=== PATIENT | female | born 1950 | race Caucasian/White ===

== ENCOUNTER → 2017-12-26 16:02 | Outpatient (CLI) | payer MEDICARE, OTHER, SELFPAY ==
[2017-12-26 17:01] LABS: Absolute Lymphocyte Count 2.57 X10^3/ul (0.83-4.51); Absolute Neutrophil Count 4.4 X10^3/uL (2.0-7.7); Basophil# 0.02 X10^3/uL; Basophil% 0.3 % (0-1); Eosinophil# 0.18 X10^3/uL; Eosinophils% 2.3 % (0-5); Hematocrit 40.5 % (37-47); Hemoglobin 13.6 g/dl (12.0-15.0); Lymphocyte # 2.57 X10^3/ul (4.0); Lymphocyte % 32.3 % (19-41); Mean Corp Hgb Conc 33.6 g/gl (32-36); Mean Corpuscular Hgb 31.9 pg (27.0-32.0); Mean Corpuscular Volume 95.1 fL (81-99); Mean Platelet Vol. 10.9 fl (6.2-12.0); Monocyte# 0.71 X10^3/uL; Monocyte% 8.9 % (0-10); Neutrophil # 4.44 X10^3/uL (2.7-7.7); Neutrophil % 55.8 % (47-70); Platelet Count 200 K/mm3 (150-450); RBC Distribution Width CV 12.6 % (11.6-14.6); RBC Distribution Width SD 42.8 fl (35.1-43.9); Red Blood Count 4.26 M/mm3 (4.2-5.4)
[2017-12-26 17:10] LABS: POSITIVE COUNT NO; POSITIVE DIFFERENTIAL NO; POSITIVE MORPHOLOGY NO
[2017-12-26 17:55] LABS: AST(SGOT) 17 U/L (15-37); Alanine Aminotransfer ALT/SGPT 17 U/L (13-56); Albumin, Serum 3.8 g/dL (3.2-5.0); Alkaline Phosphatase 82 U/L (45-117); Anion Gap 6 (5-15); BUN 13 mg/dL (7-18); BUN/Creat Ratio 20.7 RATIO (10-20); Calcium,Total 8.9 mg/dL (8.5-10.1); Chloride 103 mmol/L (98-107); Creatinine, Serum 0.63 mg/dL (0.55-1.02); EST Glomerular Filtration Rate 101 mL/min (>60); Est Glom Filt Rate - Afr Amer 122 mL/min (>60); Globulin 3.7 g/dL (2.2-4.2); Glucose 99 mg/dL (74-106); Potassium 3.7 mmol/L (3.5-5.1); Protein, Total 7.5 g/dL (6.4-8.2); Sodium Level 137 mmol/L (136-145); T4 Total, Thyroxin 9.2 ug/dL (4.8-13.9); Thyroid Stim Hormone (TSH) 0.05 uIU/mL (0.358-3.74)
== END ==
PROVIDERS: Visit Provider Physician Assistant Medical
DX: R53.83 Other fatigue (principal); I43 Cardiomyopathy in diseases classified elsewhere
CPT/HCPCS: 36415; 80053; 84436; 84443; 85025

== ENCOUNTER → 2018-01-15 11:13 | Outpatient (CLI) | payer MEDICARE, OTHER, SELFPAY ==
[2018-01-15 12:49] LABS: Free T3 3.4 pg/mL (2.18-3.98); T4 Free Direct 0.95 ng/dL (0.76-1.46); Thyroid Stim Hormone (TSH) 0.05 uIU/mL (0.358-3.74)
== END ==
PROVIDERS: Visit Provider Nurse Practitioner
DX: E07.9 Disorder of thyroid, unspecified (principal); I43 Cardiomyopathy in diseases classified elsewhere
CPT/HCPCS: 36415; 84439; 84443; 84481

== ENCOUNTER → 2018-02-19 11:20 | Outpatient (CLI) | payer MEDICARE, OTHER, SELFPAY ==
[2018-02-19 12:35] LABS: T4 Free Direct 0.79 ng/dL (0.76-1.46); Thyroid Stim Hormone (TSH) 0.07 uIU/mL (0.358-3.74)
== END ==
PROVIDERS: Visit Provider Nurse Practitioner
DX: E07.9 Disorder of thyroid, unspecified (principal)
CPT/HCPCS: 36415; 84439; 84443; 84481

== ENCOUNTER → 2018-03-07 15:47 | Outpatient (CLI) | payer MEDICARE, OTHER, SELFPAY ==
[2018-03-07 15:55] LABS: Bacteria 0 SEEN /hpf (None Seen); Mucous, Urine 0 SEEN /hpf (<or=2+); Red Blood Cells-Urine 0 SEEN /hpf (0-5)
[2018-03-07 17:48] LABS: Absolute Lymphocyte Count 2.68 X10^3/ul (0.83-4.51); Absolute Neutrophil Count 3.5 X10^3/uL (2.0-7.7); Basophil# 0.01 X10^3/uL; Basophil% 0.1 % (0-1); Eosinophil# 0.21 X10^3/uL; Hematocrit 41.8 % (37-47); Hemoglobin 13.6 g/dl (12.0-15.0); Lymphocyte # 2.68 X10^3/ul (4.0); Lymphocyte % 38.1 % (19-41); Mean Corp Hgb Conc 32.5 g/gl (32-36); Mean Corpuscular Hgb 31.3 pg (27.0-32.0); Mean Corpuscular Volume 96.1 fL (81-99); Mean Platelet Vol. 10.9 fl (6.2-12.0); Monocyte# 0.59 X10^3/uL; Monocyte% 8.4 % (0-10); Neutrophil # 3.52 X10^3/uL (2.7-7.7); Neutrophil % 50.1 % (47-70); Platelet Count 227 K/mm3 (150-450); RBC Distribution Width CV 12.8 % (11.6-14.6); Red Blood Count 4.35 M/mm3 (4.2-5.4)
[2018-03-07 17:56] LABS: POSITIVE COUNT NO; POSITIVE DIFFERENTIAL NO; POSITIVE MORPHOLOGY NO
[2018-03-07 17:57] LABS: Color, Urine Yellow (Yellow); Urine Clarity Clear (Clear)
[2018-03-07 17:58] LABS: Glucose, Dipstick NEGATIVE (Normal); Ketone-Dipstick Negative (Negative); Protein-Dipstick Negative (Negative); Urine Bilirubin Dipstick Negative (Negative)
[2018-03-07 17:59] LABS: Leukocyte Esterase-Dipstick Negative /ul (Negative); Nitrite-Dipstick Negative (Negative); Occult Blood-Urine Negative /ul (Negative); Urine Urobilinogen Normal (Normal)
[2018-03-07 18:01] LABS: Hyaline Cast 0-5 SEEN /lpf (0-5); Squamous Epithelial Cells - UA 0-5 SEEN /hpf (5-10); White Blood Cells 0-5 SEEN /hpf (0-5)
[2018-03-07 18:18] LABS: ALB/GLOB Ratio 1.1 RATIO (0.9-2.4); AST(SGOT) 17 U/L (15-37); Alanine Aminotransfer ALT/SGPT 19 U/L (13-56); Albumin, Serum 3.9 g/dL (3.2-5.0); Alkaline Phosphatase 83 U/L (45-117); Anion Gap 7 (5-15); BUN 10 mg/dL (7-18); BUN/Creat Ratio 15.9 RATIO (10-20); Chloride 106 mmol/L (98-107); Cholesterol 227 mg/dL (200); Creatinine, Serum 0.63 mg/dL (0.55-1.02); EST Glomerular Filtration Rate 100 mL/min (>60); Est Glom Filt Rate - Afr Amer 121 mL/min (>60); Globulin 3.6 g/dL (2.2-4.2); Glucose 83 mg/dL (74-106); High Density Lipoprotein 48 mg/dL; Magnesium 2.2 mg/dL (1.6-2.6); Potassium 3.7 mmol/L (3.5-5.1); Protein, Total 7.5 g/dL (6.4-8.2); Sodium Level 140 mmol/L (136-145); T4 Free Direct 0.98 ng/dL (0.76-1.46); Thyroid Stim Hormone (TSH) 0.07 uIU/mL (0.358-3.74); Triglycerides 332 mg/dL; Very Low Density Lipoprotein 66 mg/dL (5-40)
[2018-03-11 20:06] LABS: Thyroid Stim Immunoglob <0.10 IU/L (0.00-0.55)
[2018-03-12 10:53] LABS: Anti-Thyroglobulin AB < 1.0 IU/mL (0.0-0.9); Thyroid Peroxidase AB 16 IU/mL (0-34)
== END ==
PROVIDERS: Family Provider Family Medicine; PCP Family Medicine; Visit Provider Family Medicine
DX: R94.6 Abnormal results of thyroid function studies (principal); R73.9 Hyperglycemia, unspecified; I50.20 Unspecified systolic (congestive) heart failure; Z72.0 Tobacco use
CPT/HCPCS: 36415; 80053; 80061; 81001; 83036; 83735; 84432; 84439; 84443; 84445; 85025; 86376; 86800

== ENCOUNTER → 2018-03-19 07:40 | Outpatient (CLI) | payer MEDICARE, OTHER, SELFPAY ==
--- NOTE | 2018-03-19 07:42 | CT_ITS ---
STUDY: CT MAXILLOFACIAL SINUSES REASON FOR EXAM: Female, 67 years old. Evaluate for sinusitis RADIATION DOSAGE (If Supplied By Facility): CTDIvol = ( 33.06 ) mGy, DLP = ( 788.40 ) mGycm TECHNIQUE: The patient was scanned in a multi detector CT scanner. High resolution axial imaging was performed without the administration of intravenous contrast material. Sagittal and coronal images were reconstructed. Individualized dose optimization techniques were used for this CT. COMPARISON: None. FINDINGS: FRONTAL SINUSES: Normal aeration, without mucosal inflammatory disease. ETHMOIDAL SINUSES: Trace scattered circumferential sinus mucosal thickening in the bilateral ethmoid paranasal sinuses. MAXILLARY SINUSES: A small amount of trace sinus mucosal thickening involving the inferior aspect of both maxillary sinuses. SPHENOIDAL SINUSES: Mild bilateral sphenoid paranasal sinus disease. More bubbly appearance noted on the left suggesting acute on chronic sinusitis. There is patency of the bilateral maxillary infundibuli with normal uncinate processes, ethmoid bullae, and hiatus semilunaris. Normal bilateral middle turbinates. Normal bilateral inferior turbinates. There is a right sided nasal septal deviation with a right sided nasal septal spur. There is patency of the bilateral nasal airways. The visualized osseous structures are normal. The visualized bilateral orbital contents are normal. CT/Sinus/Facial Bone IMPRESSION: 1. Mild sinus mucosal disease as detailed above 2. Prominent rightward nasal septal deviation with rightward spur Electronically Signed: Abraham Jay DO at 8:14 EDT Tel , Service support ,
== END ==
PROVIDERS: Family Provider Family Medicine; PCP Family Medicine; Visit Provider Otolaryngology
DX: J32.9 Chronic sinusitis, unspecified (principal)
CPT/HCPCS: 70486

== ENCOUNTER → 2018-03-26 08:31 | Outpatient (CLI) | payer MEDICARE, OTHER, SELFPAY ==
--- NOTE | 2018-03-26 08:33 | US_ITS ---
STUDY: THYROID ULTRASOUND REASON FOR EXAM: Female, 67 years old. Low TSH TECHNIQUE: Ultrasound evaluation of the thyroid was performed with real-time and static cantu-scale imaging. COMPARISON: None. FINDINGS: RIGHT LOBE: The right lobe of the thyroid gland measures 4.8 x 2.1 x 2.5 cm. There is a heterogeneous echotexture. There are multiple nodules within the right thyroid. In the upper pole there is a 2.0 x 1.5 x 1.8 cm solid-appearing mass which appears encapsulated with internal vascularity cystic and solid components. There is a cystic mass in the right thyroid measuring 0.9 x 0.8 cm. There is a mass measuring 1.0 x 0.6 cm. There are scattered cystic nodules. LEFT LOBE: The left lobe of the thyroid gland measures 4.7 x 1.9 x 1.9 cm. There is a heterogeneous echotexture. There are multiple nodules in the left thyroid. There are 2 closely related or lobulated masses in the left thyroid measuring approximately 1.9 x 1.7 x 1.3 cm. There is increased vascularity. There is a cystic mass present measuring 0.6 x 0.4 cm. Overall there are numerous bilateral thyroid nodules there is increased vascularity throughout. ISTHMUS: The isthmus measures 4 mm . The regional lymph nodes are normal. US/Thyroid IMPRESSION: Enlarged bilateral thyroid. There is increased vascularity and multiple nodules. There are bilateral solid-appearing nodules in the upper poles with vascularity index echogenicity and focal calcification. Recommend correlation with clinical history. Findings are highly suspicious for multinodular goiter. Comparison to prior study would be helpful. Otherwise recommend consideration for biopsy. Electronically Signed: Geri Berg MD at 14:56 EDT Tel , Service support ,
== END ==
PROVIDERS: Family Provider Family Medicine; PCP Family Medicine; Visit Provider Family Medicine
DX: R94.6 Abnormal results of thyroid function studies (principal)
CPT/HCPCS: 76536

== ENCOUNTER → 2018-05-22 16:30 | Outpatient (CLI) | payer MEDICARE, OTHER, SELFPAY ==
--- NOTE | 2018-05-22 14:50 | ASPS_PTH ---
PATIENT: ALAN STACY [facility] U#:[id number] AGE/SX: 75/F ROOM: RE05/22/[address]: Dr. Gigi Mistry MD : 1950 BED: DIS: SPEC #: [id number] RECD: 05/22/18 16:02 STATUS: FREDDIE EMMY #: [id number] TEQUILA: 05/22/18 14:[address]: Gigi Mistry DEPT: CYTOLOGY RECD BY: Edmar Mejia ENTERED: 05/24/18 07:56 SP TYPE: ASPIRATION OTHR DR: Dr. Abraham Bahena MD Tissues: A - Thyroid gland, NOS B - Thyroid gland, NOS Procedures: Pap Stain (control) Special Stain Group II Cytology Other HEADER OPERATION: Bilateral thyroid FNA PRE-OP DIAGNOSIS: Bilateral thyroid nodules TISSUE SUBMITTED: A ? Right thyroid (mid superior) 6 slides, B ? Left thyroid (mid) 6 slides DIAGNOSIS CYTOLOGY A. Fine needle aspiration, right thyroid nodule (smears): Adequate for evaluation. Negative, consistent with colloid nodule. B. Fine needle aspiration, left thyroid nodule (smears): Adequate for evaluation. Negative, consistent with colloid nodule. AM:brielle 05/25/18 CYTOLOGY STUDY Slides are reviewed. CYTOLOGY GROSS A - Received are six smears labeled with the patient's name and designated per the requisition as right thyroid mid superior. Submitted for staining. B - Received are six smears labeled with the patient's name and designated per the requisition as left thyroid mid. Submitted for staining. 05/24/18 TC:5 CPT: 24858 x2
== END ==
PROVIDERS: Family Provider Family Medicine; PCP Family Medicine; Visit Provider Surgery
DX: E04.1 Nontoxic single thyroid nodule (principal)
CPT/HCPCS: 88161; 88313

== ENCOUNTER → 2018-07-02 15:00 | Outpatient (CLI) | payer MEDICARE, OTHER, SELFPAY ==
--- NOTE | 2018-07-02 15:00 | MASS_PTH ---
PATIENT: ALAN STACY LOC: [facility] U#:[id number] AGE/SX: 75/F ROOM: RE07/02/[address]: Dr. Gigi Mistry MD : 1950 BED: DIS: SPEC #: [id number] RECD: 07/03/18 10:46 STATUS: FREDDIE EMMY #: [id number] TEQUILA: 07/02/18 15:[address]: Gigi Mistry DEPT: SURGICAL PATHOLOGY RECD BY: Vipin Greco ENTERED: 07/03/18 11:59 SP TYPE: Mass OTHR DR: Dr. Abraham Bahena MD Tissues: Right arm (tissue only) Procedures: Surgery Specimen Level III HEADER OPERATION: Excision right arm mass PRE-OP DIAGNOSIS: Right arm mass TISSUE SUBMITTED: Right arm tissue MICROSCOPIC DIAGNOSIS Right arm mass, excision: Mature adipose tissue, consistent with lipoma. Overlying skin, no pathologic diagnosis. SJ:brielle 07/04/18 MICROSCOPIC DESCRIPTION Slides are reviewed. GROSS DESCRIPTION Received in fixative is one container labeled with the patient's name and designated right arm. The specimen consists of an irregular piece of adipose tissue measuring 7 x 6 x 3 cm. A piece of skin is noted at one surface measuring 5.5 x 0.7 cm. The skin surface shows a healed scar. The external surface is inked. Sections reveal yellow adipose cut surfaces without areas of hemorrhage, necrosis or cystic degeneration. Rectification Printer sections are submitted in four cassettes. Cassette 1 also contains the section of the skin. / NNAMDI:brielle 07/03/18 TC:1 CPT: 17209
== END ==
PROVIDERS: Family Provider Family Medicine; PCP Family Medicine; Visit Provider Surgery
DX: L98.8 Other specified disorders of the skin and subcutaneous tissue (principal)
CPT/HCPCS: 88304; 88305

== ENCOUNTER → 2018-07-16 08:29 | Outpatient (CLI) | payer MEDICARE, OTHER, SELFPAY | PROVIDERS: Family Provider Family Medicine; PCP Family Medicine; Visit Provider Internal Medicine Cardiovascular Disease | DX: I45.6 Pre-excitation syndrome (principal); I43 Cardiomyopathy in diseases classified elsewhere; R00.2 Palpitations; E07.9 Disorder of thyroid, unspecified; I49.9 Cardiac arrhythmia, unspecified; Z95.810 Presence of automatic (implantable) cardiac defibrillator | CPT/HCPCS: 93306 ==

== ENCOUNTER → 2018-07-26 13:35 | Outpatient (CLI) | payer MEDICARE, OTHER, SELFPAY ==
[2018-07-26 16:19] LABS: Absolute Lymphocyte Count 2.07 X10^3/ul (0.83-4.51); Absolute Neutrophil Count 3.3 X10^3/uL (2.0-7.7); Basophil# 0.01 X10^3/uL; Basophil% 0.2 % (0-1); Eosinophil# 0.18 X10^3/uL; Eosinophils% 2.9 % (0-5); Hematocrit 37.5 % (37-47); Hemoglobin 12.4 g/dl (12.0-15.0); Lymphocyte # 2.07 X10^3/ul (4.0); Lymphocyte % 33.4 % (19-41); Mean Corp Hgb Conc 33.1 g/gl (32-36); Mean Corpuscular Hgb 32.2 pg (27.0-32.0); Mean Corpuscular Volume 97.4 fL (81-99); Mean Platelet Vol. 11.4 fl (6.2-12.0); Monocyte# 0.65 X10^3/uL; Monocyte% 10.5 % (0-10); Neutrophil # 3.27 X10^3/uL (2.7-7.7); Neutrophil % 52.8 % (47-70); POSITIVE COUNT NO; POSITIVE DIFFERENTIAL NO; POSITIVE MORPHOLOGY NO; Platelet Count 185 K/mm3 (150-450); RBC Distribution Width CV 12.8 % (11.6-14.6); RBC Distribution Width SD 44.7 fl (35.1-43.9); Red Blood Count 3.85 M/mm3 (4.2-5.4); White Blood Count 6.2 K/mm3 (4.4-11.0)
[2018-07-26 16:37] LABS: AST(SGOT) 19 U/L (15-37); Alanine Aminotransfer ALT/SGPT 18 U/L (13-56); Albumin, Serum 3.3 g/dL (3.2-5.0); Alkaline Phosphatase 84 U/L (45-117); Anion Gap 10 (5-15); BUN 11 mg/dL (7-18); BUN/Creat Ratio 17.5 RATIO (10-20); Calcium,Total 8.5 mg/dL (8.5-10.1); Chloride 108 mmol/L (98-107); Cholesterol 219 mg/dL (200); Creatinine, Serum 0.63 mg/dL (0.55-1.02); EST Glomerular Filtration Rate 100 mL/min (>60); Est Glom Filt Rate - Afr Amer 121 mL/min (>60); Globulin 3.3 g/dL (2.2-4.2); Glucose 82 mg/dL (74-106); High Density Lipoprotein 42 mg/dL; Potassium 3.5 mmol/L (3.5-5.1); Protein, Total 6.6 g/dL (6.4-8.2); Sodium Level 142 mmol/L (136-145); T4 Free Direct 0.86 ng/dL (0.76-1.46); Thyroid Stim Hormone (TSH) 0.04 uIU/mL (0.358-3.74); Triglycerides 286 mg/dL; Very Low Density Lipoprotein 57 mg/dL (5-40)
== END ==
PROVIDERS: Family Provider Family Medicine; PCP Family Medicine; Visit Provider Family Medicine
DX: E78.5 Hyperlipidemia, unspecified (principal); R79.89 Other specified abnormal findings of blood chemistry
CPT/HCPCS: 36415; 80053; 80061; 84439; 84443; 85025

== ENCOUNTER → 2018-08-01 15:32 | Outpatient (CLI) | payer MEDICARE, OTHER, SELFPAY ==
[2018-08-05 03:06] LABS: Thyroid Stim Immunoglob <0.10 IU/L (0.00-0.55)
[2018-08-05 09:59] LABS: Anti-Thyroglobulin AB < 1.0 IU/mL (0.0-0.9); Thyroglobulin, Serum Qt. 91.8 ng/mL (1.5-38.5); Thyroid Peroxidase AB 13 IU/mL (0-34)
== END ==
PROVIDERS: Family Provider Family Medicine; PCP Family Medicine; Visit Provider Family Medicine
DX: R79.89 Other specified abnormal findings of blood chemistry (principal)
CPT/HCPCS: 36415; 84432; 84445; 86376; 86800

== ENCOUNTER → 2018-08-06 11:22 | Outpatient (CLI) | payer MEDICARE, OTHER, SELFPAY ==
[2018-08-06 12:33] LABS: BNP,B-Type NATRIURETIC PEPTIDE 49.6 pg/mL (0-100)
== END ==
PROVIDERS: Family Provider Family Medicine; PCP Family Medicine; Visit Provider Internal Medicine Cardiovascular Disease
DX: R06.02 Shortness of breath (principal)
CPT/HCPCS: 36415; 83880

== ENCOUNTER → 2018-11-28 13:49 | Outpatient (CLI) | payer MEDICARE, OTHER, SELFPAY ==
[2018-11-28 13:54] LABS: Bacteria 0 SEEN /hpf (None Seen); Mucous, Urine 0 SEEN /hpf (<or=2+); Red Blood Cells-Urine 0 SEEN /hpf (0-5); White Blood Cells 0 SEEN /hpf (0-5)
[2018-11-28 15:50] LABS: Color, Urine Straw (Yellow); Glucose, Dipstick Normal (Normal); Ketone-Dipstick Negative (Negative); Leukocyte Esterase-Dipstick Negative /ul (Negative); Nitrite-Dipstick Negative (Negative); Occult Blood-Urine Negative /ul (Negative); Protein-Dipstick Negative (Negative); Specific Gravity, Urine 1.005 (1.002-1.030); Urine Bilirubin Dipstick Negative (Negative); Urine Clarity Clear (Clear); Urine Urobilinogen Normal (Normal); Urine pH 6.5 (5.0 - 8.0)
[2018-11-28 16:06] LABS: Squamous Epithelial Cells - UA 0-5 SEEN /hpf (5-10)
[2018-11-28 16:36] LABS: ALB/GLOB Ratio 1.3 RATIO (0.9-2.4); AST(SGOT) 16 U/L (15-37); Alanine Aminotransfer ALT/SGPT 15 U/L (13-56); Albumin, Serum 3.5 g/dL (3.2-5.0); Alkaline Phosphatase 72 U/L (45-117); Anion Gap 10 (5-15); BUN 9 mg/dL (7-18); BUN/Creat Ratio 14.3 RATIO (10-20); Calcium,Total 8.3 mg/dL (8.5-10.1); Chloride 110 mmol/L (98-107); Creatinine, Serum 0.63 mg/dL (0.55-1.02); EST Glomerular Filtration Rate 100 mL/min (>60); Est Glom Filt Rate - Afr Amer 121 mL/min (>60); Globulin 2.7 g/dL (2.2-4.2); Glucose 77 mg/dL (74-106); Magnesium 2.4 mg/dL (1.6-2.6); Potassium 3.8 mmol/L (3.5-5.1); Protein, Total 6.2 g/dL (6.4-8.2); Sodium Level 144 mmol/L (136-145); T4 Free Direct 0.92 ng/dL (0.76-1.46); Thyroid Stim Hormone (TSH) 0.06 uIU/mL (0.358-3.74)
[2018-11-28 17:00] LABS: Absolute Lymphocyte Count 2.04 X10^3/ul (0.83-4.51); Absolute Neutrophil Count 3.1 X10^3/uL (2.0-7.7); Basophil# 0.01 X10^3/uL; Basophil% 0.2 % (0-1); Eosinophil# 0.14 X10^3/uL; Eosinophils% 2.4 % (0-5); Hematocrit 37.8 % (37-47); Hemoglobin 12.3 g/dl (12.0-15.0); Lymphocyte # 2.04 X10^3/ul (4.0); Lymphocyte % 35.1 % (19-41); Mean Corp Hgb Conc 32.5 g/gl (32-36); Mean Corpuscular Hgb 31.4 pg (27.0-32.0); Mean Corpuscular Volume 96.4 fL (81-99); Mean Platelet Vol. 10.9 fl (6.2-12.0); Monocyte# 0.54 X10^3/uL; Monocyte% 9.3 % (0-10); Neutrophil # 3.08 X10^3/uL (2.7-7.7); Neutrophil % 52.8 % (47-70); Platelet Count 181 K/mm3 (150-450); RBC Distribution Width CV 12.9 % (11.6-14.6); RBC Distribution Width SD 44.6 fl (35.1-43.9); Red Blood Count 3.92 M/mm3 (4.2-5.4); White Blood Count 5.8 K/mm3 (4.4-11.0)
[2018-11-28 17:06] LABS: POSITIVE COUNT NO; POSITIVE DIFFERENTIAL NO; POSITIVE MORPHOLOGY NO
== END ==
PROVIDERS: Family Provider Family Medicine; PCP Family Medicine; Visit Provider Family Medicine
DX: I50.20 Unspecified systolic (congestive) heart failure (principal); E05.90 Thyrotoxicosis, unspecified without thyrotoxic crisis or storm; Z72.0 Tobacco use
CPT/HCPCS: 36415; 80053; 81001; 83735; 84439; 84443; 85025

== ENCOUNTER → 2018-12-19 14:02 | Outpatient (CLI) | payer MEDICARE, OTHER, SELFPAY ==
[2018-12-19 13:14] VITALS: BMI 20.2
--- NOTE | 2018-12-19 14:15 | RAD_ITS ---
STUDY: X-RAY CHEST REASON FOR EXAM: Female, 68 years old. Preheart catheterization evaluation TECHNIQUE: 2 views COMPARISON: None. FINDINGS: The heart is normal in size. An ICD is in place. The lungs are clear. There is a lumbar scoliosis with convexity to the left.. Normal visualized ribs, clavicles, and shoulders. There is no demonstrated abnormality of the visualized soft tissue structures of the upper abdomen. RAD/Chest PA and Lateral IMPRESSION: No acute findings in the lungs Electronically Signed: Vitaliy Laboy MD at 6:28 EST Tel , Service support ,
[2018-12-19 14:40] LABS: Red Blood Cells-Urine 0 SEEN /hpf (0-5)
[2018-12-19 15:46] LABS: Color, Urine Yellow (Yellow); Glucose, Dipstick Normal (Normal); Ketone-Dipstick 5 mg/dl (Negative); Leukocyte Esterase-Dipstick Negative /ul (Negative); Nitrite-Dipstick Negative (Negative); Occult Blood-Urine 25 /ul (Negative); Protein-Dipstick 15 mg/dl (Negative); Specific Gravity, Urine 1.025 (1.002-1.030); Urine Bilirubin Dipstick Negative (Negative); Urine Clarity Clear (Clear); Urine Urobilinogen 1 mg/dl (Normal)
[2018-12-19 15:48] LABS: Prothrombin Time (Protime)PT. 13.6 SECONDS (11.7-14.9)
[2018-12-19 15:51] LABS: Hematocrit 41.9 % (37-47); Hemoglobin 14.1 g/dl (12.0-15.0); Mean Corp Hgb Conc 33.7 g/gl (32-36); Mean Corpuscular Hgb 32.5 pg (27.0-32.0); Mean Corpuscular Volume 96.5 fL (81-99); Mean Platelet Vol. 11.4 fl (6.2-12.0); Platelet Count 201 K/mm3 (150-450); RBC Distribution Width CV 12.5 % (11.6-14.6); RBC Distribution Width SD 42.7 fl (35.1-43.9); Red Blood Count 4.34 M/mm3 (4.2-5.4); White Blood Count 7.5 K/mm3 (4.4-11.0)
[2018-12-19 15:54] LABS: Scan Indicated on CBC? Y/N NO
[2018-12-19 16:06] LABS: Bacteria 1+ /hpf (None Seen); Mucous, Urine 4+ /hpf (<or=2+); Squamous Epithelial Cells - UA 0-5 SEEN /hpf (5-10); White Blood Cells 0-5 SEEN /hpf (0-5)
[2018-12-19 16:07] LABS: Anion Gap 12 (5-15); BUN 12 mg/dL (7-18); BUN/Creat Ratio 19.3 RATIO (10-20); Chloride 105 mmol/L (98-107); Creatinine, Serum 0.62 mg/dL (0.55-1.02); EST Glomerular Filtration Rate 101 mL/min (>60); Est Glom Filt Rate - Afr Amer 122 mL/min (>60); Glucose 88 mg/dL (74-106); Potassium 3.7 mmol/L (3.5-5.1); Sodium Level 143 mmol/L (136-145)
== END ==
PROVIDERS: Family Provider Family Medicine; PCP Family Medicine; Referring Provider Internal Medicine Cardiovascular Disease; Visit Provider Internal Medicine Cardiovascular Disease
DX: Z95.810 Presence of automatic (implantable) cardiac defibrillator (principal); I43 Cardiomyopathy in diseases classified elsewhere
CPT/HCPCS: 36415; 71046; 80048; 81001; 85027; 85610

== ENCOUNTER → 2019-02-27 | Outpatient (CLI) | payer MEDICARE, OTHER, SELFPAY ==
[2018-12-19 13:14] VITALS: BMI 20.2
[2019-02-27 11:28] LABS: BNP,B-Type NATRIURETIC PEPTIDE 136.2 pg/mL (0-100)
== END | disposition home or self-care (01) ==
LOC: LAB 09:28
PROVIDERS: Family Provider Family Medicine; PCP Family Medicine; Referring Provider Internal Medicine Cardiovascular Disease; Visit Provider Internal Medicine Cardiovascular Disease
DX: I47.2 Ventricular tachycardia (principal); I50.22 Chronic systolic (congestive) heart failure; I43 Cardiomyopathy in diseases classified elsewhere
CPT/HCPCS: 36415; 83880

== ENCOUNTER → 2019-05-27 | Outpatient (CLI) | payer MEDICARE, OTHER, SELFPAY ==
[2019-05-08 13:52] VITALS: BMI 19.7
[2019-05-27 09:39] LABS: Bacteria 0 SEEN /hpf (None Seen); Mucous, Urine 0 SEEN /hpf (<or=2+)
[2019-05-27 11:28] LABS: Color, Urine Yellow (Yellow); Glucose, Dipstick Normal (Normal); Ketone-Dipstick Negative (Negative); Leukocyte Esterase-Dipstick 25 /ul (Negative); Nitrite-Dipstick Negative (Negative); Occult Blood-Urine 10 /ul (Negative); Protein-Dipstick Negative (Negative); Urine Bilirubin Dipstick Negative (Negative); Urine Clarity Sl. Cloudy (Clear); Urine Urobilinogen Normal (Normal)
[2019-05-27 11:29] LABS: Absolute Lymphocyte Count 2.28 X10^3/ul (0.83-4.51); Absolute Neutrophil Count 3.5 X10^3/uL (2.0-7.7); Basophil# 0.02 X10^3/uL; Basophil% 0.3 % (0-1); Eosinophil# 0.15 X10^3/uL; Eosinophils% 2.3 % (0-5); Hematocrit 41.4 % (37-47); Hemoglobin 13.7 g/dl (12.0-15.0); Lymphocyte # 2.28 X10^3/ul (4.0); Lymphocyte % 35.3 % (19-41); Mean Corp Hgb Conc 33.1 g/gl (32-36); Mean Corpuscular Hgb 30.9 pg (27.0-32.0); Mean Corpuscular Volume 93.2 fL (81-99); Mean Platelet Vol. 11.1 fl (6.2-12.0); Monocyte# 0.53 X10^3/uL; Monocyte% 8.2 % (0-10); Neutrophil # 3.46 X10^3/uL (2.7-7.7); Neutrophil % 53.6 % (47-70); Platelet Count 202 K/mm3 (150-450); RBC Distribution Width CV 12.5 % (11.6-14.6); RBC Distribution Width SD 41.2 fl (35.1-43.9); Red Blood Count 4.44 M/mm3 (4.2-5.4); White Blood Count 6.5 K/mm3 (4.4-11.0)
[2019-05-27 11:32] LABS: POSITIVE COUNT NO; POSITIVE DIFFERENTIAL NO; POSITIVE MORPHOLOGY NO
[2019-05-27 11:36] LABS: Red Blood Cells-Urine 0-5 SEEN /hpf (0-5); Squamous Epithelial Cells - UA 0-5 SEEN /hpf (5-10); White Blood Cells 0-5 SEEN /hpf (0-5)
[2019-05-27 11:42] LABS: ALB/GLOB Ratio 1.1 RATIO (0.9-2.4); AST(SGOT) 17 U/L (15-37); Alanine Aminotransfer ALT/SGPT 15 U/L (13-56); Albumin, Serum 3.8 g/dL (3.2-5.0); Alkaline Phosphatase 76 U/L (45-117); Anion Gap 9 (5-15); BUN 12 mg/dL (7-18); BUN/Creat Ratio 15.3 RATIO (10-20); Chloride 106 mmol/L (98-107); Cholesterol 257 mg/dL (200); Creatinine, Serum 0.78 mg/dL (0.55-1.02); EST Glomerular Filtration Rate 77 mL/min (>60); Est Glom Filt Rate - Afr Amer 94 mL/min (>60); Globulin 3.6 g/dL (2.2-4.2); Glucose 87 mg/dL (74-106); High Density Lipoprotein 56 mg/dL; Magnesium 2.4 mg/dL (1.6-2.6); Protein, Total 7.4 g/dL (6.4-8.2); Sodium Level 140 mmol/L (136-145); Thyroid Stim Hormone (TSH) 0.05 uIU/mL (0.358-3.74); Triglycerides 211 mg/dL; Very Low Density Lipoprotein 42 mg/dL (5-40)
[2019-05-29 13:03] LABS: Anti-Thyroglobulin AB < 1.0 IU/mL (0.0-0.9); Thyroglobulin, Serum Qt. 89.6 ng/mL (1.5-38.5); Thyroid Peroxidase AB 17 IU/mL (0-34)
== END | disposition home or self-care (01) ==
LOC: MFPLAB 09:32
PROVIDERS: Family Provider Family Medicine; PCP Family Medicine; Referring Provider Nurse Practitioner Family; Visit Provider Family Medicine
DX: I47.2 Ventricular tachycardia (principal); I50.22 Chronic systolic (congestive) heart failure; I43 Cardiomyopathy in diseases classified elsewhere; E05.90 Thyrotoxicosis, unspecified without thyrotoxic crisis or storm; Z72.0 Tobacco use
CPT/HCPCS: 36415; 80053; 80061; 81001; 83735; 84432; 84439; 84443; 85025; 86376; 86800

== ENCOUNTER → 2019-06-05 | Outpatient (CLI) | payer MEDICARE, OTHER, SELFPAY ==
[2019-05-08 13:52] VITALS: BMI 19.7
[2019-06-08 13:32] LABS: Thyroid Stim Immunoglob <0.10 IU/L (0.00-0.55)
== END | disposition home or self-care (01) ==
LOC: MFPLAB 15:15
PROVIDERS: Family Provider Family Medicine; PCP Family Medicine; Referring Provider Family Medicine; Visit Provider Family Medicine
DX: E05.90 Thyrotoxicosis, unspecified without thyrotoxic crisis or storm (principal)
CPT/HCPCS: 36415; 84445

== ENCOUNTER → 2019-06-10 | Outpatient (CLI) | payer MEDICARE, OTHER, SELFPAY ==
[2019-05-08 13:52] VITALS: BMI 19.7
--- NOTE | 2019-06-10 11:18 | US_ITS ---
STUDY: THYROID ULTRASOUND REASON FOR EXAM: Female, 69 years old. Thyroid nodules TECHNIQUE: Ultrasound evaluation of the thyroid was performed with real-time and static cantu-scale imaging. COMPARISON: 03/26/2018 FINDINGS: RIGHT LOBE: The right lobe of the thyroid gland measures 4.6 x 2.1 x 2.4 cm. There is a heterogeneous echotexture. There are multiple nodules in the left thyroid lobe the largest 4 nodules measure respectively: Nodule #1 measures 2 x 1.7 x 1.4 cm.Ti-RADS category 3 low suspicion for malignancy for malignancy. Nodule #2 measures 1.2 x 0.9 x 0.8 cm.Ti-RADS category 3 low suspicion for malignancy for malignancy. Nodule #3 measures 1.2 x 1.1 x 0.7 cm.Ti-RADS category 3 low suspicion for malignancy for malignancy. Nodule #4 measures 0.6 x 0.7 x 0.3 cm.Ti-RADS category 3 low suspicion for malignancy for malignancy. LEFT LOBE: The left lobe of the thyroid gland measures 4.7 x 1.7 x 1.7 cm. There is a heterogeneous echotexture. There are multiple nodules in the left thyroid lobe the largest 4 nodules measure respectively: Nodule #1 measures 1.9 x 1.3 x 1.5 cm.Ti-RADS category 4 moderate suspicion for malignancy for malignancy. Nodule #2 measures 0.8 x 2.6 x 0.4 cm.Ti-RADS category 3 low suspicion for malignancy for malignancy. Nodule #3 measures 0.8 x 0.7 x 0.5 cm.Ti-RADS category 3 low suspicion for malignancy for malignancy. Nodule #4 measures 2.6 x 2.9 x 0.7 cm.Ti-RADS category 3 low suspicion for malignancy for malignancy. ISTHMUS: The isthmus measures . The regional lymph nodes are normal. US/Thyroid IMPRESSION: Multinodular goiter there has been is significant change in size of the nodule since the previous study most of the nodules demonstrate characteristics consistent with low suspicion for malignancy. The nodule #1 in the left thyroid lobe measures 1.9 x 1.3 x 1.5 cm.Ti-RADS category 4 moderately suspicious for malignancy for malignancy. Electronically Signed: Contreras Klein, at 8:23 EDT Tel , Service support ,
== END | disposition home or self-care (01) ==
LOC: US 11:04
PROVIDERS: Family Provider Family Medicine; PCP Family Medicine; Referring Provider Family Medicine; Visit Provider Family Medicine
DX: E04.2 Nontoxic multinodular goiter (principal)
CPT/HCPCS: 76536

== ENCOUNTER → 2019-11-25 14:19 | Outpatient (CLI) | payer MEDICARE, OTHER, SELFPAY ==
[2019-05-08 13:52] VITALS: BMI 19.7
[2019-11-25 18:11] LABS: Absolute Lymphocyte Count 1.92 X10^3/uL (0.83-4.51); Absolute Neutrophil Count 3.6 X10^3/uL (2.0-7.7); Basophil# 0.02 X10^3/uL; Basophil% 0.3 % (0-1); Eosinophil# 0.14 X10^3/uL; Eosinophils% 2.2 % (0-5); Hematocrit 38.6 % (37-47); Hemoglobin 12.3 g/dL (12.0-15.0); Lymphocyte # 1.92 X10^3/ul (4.0); Lymphocyte % 30.3 % (19-41); Mean Corp Hgb Conc 31.9 g/dL (32-36); Mean Corpuscular Hgb 30.7 pg (27.0-32.0); Mean Corpuscular Volume 96.3 fL (81-99); Mean Platelet Vol. 10.8 fl (6.2-12.0); Monocyte# 0.62 X10^3/uL; Monocyte% 9.8 % (0-10); NRBC Flagged by Analyzer 0 % (0-5); Neutrophil # 3.62 X10^3/uL (2.7-7.7); Neutrophil % 57.1 % (47-70); Platelet Count 188 K/mm3 (150-450); RBC Distribution Width CV 12.6 % (11.6-14.6); RBC Distribution Width SD 44.7 fl (35.1-43.9); Red Blood Count 4.01 M/mm3 (4.2-5.4); White Blood Count 6.3 K/mm3 (4.4-11.0)
[2019-11-25 18:22] LABS: AST(SGOT) 15 U/L (15-37); Alanine Aminotransfer ALT/SGPT 15 U/L (13-56); Albumin, Serum 3.3 g/dL (3.2-5.0); Alkaline Phosphatase 79 U/L (45-117); Anion Gap 3 (5-15); BUN 11 mg/dL (7-18); BUN/Creat Ratio 17.4 RATIO (10-20); Calcium,Total 8.7 mg/dL (8.5-10.1); Chloride 111 mmol/L (98-107); Creatinine, Serum 0.63 mg/dL (0.55-1.02); EST Glomerular Filtration Rate 99 mL/min (>60); Est Glom Filt Rate - Afr Amer 120 mL/min (>60); Globulin 3.2 g/dL (2.2-4.2); Glucose 99 mg/dL (74-106); Potassium 3.5 mmol/L (3.5-5.1); Protein, Total 6.5 g/dL (6.4-8.2); Sodium Level 141 mmol/L (136-145); T4 Free Direct 0.77 ng/dL (0.76-1.46); Thyroid Stim Hormone (TSH) 0.07 uIU/mL (0.358-3.74)
[2019-11-29 08:08] LABS: Thyroid Stim Immunoglob <0.10 IU/L (0.00-0.55)
[2019-11-29 15:05] LABS: Thyroglobulin Antibody < 1.0 IU/mL (0.0-0.9); Thyroid Peroxidase AB 14 IU/mL (0-34)
== END ==
PROVIDERS: Family Provider Family Medicine; PCP Family Medicine; Visit Provider Family Medicine
DX: I25.10 Atherosclerotic heart disease of native coronary artery without angina pectoris (principal); E05.90 Thyrotoxicosis, unspecified without thyrotoxic crisis or storm
CPT/HCPCS: 36415; 80053; 84439; 84443; 84445; 85025; 86376; 86800

== ENCOUNTER → 2020-06-08 | Outpatient (CLI) | payer MEDICARE, OTHER, SELFPAY ==
[2019-12-12 15:04] VITALS: BMI 19.2
[2020-06-08 09:03] VITALS: BMI 19.9
--- NOTE | 2020-06-08 10:03 | US_ITS ---
STUDY: THYROID ULTRASOUND REASON FOR EXAM: Female, 70 years old. NODULES TECHNIQUE: Ultrasound evaluation of the thyroid was performed with real-time and static cantu-scale imaging. COMPARISON: 06/10/2019 FINDINGS: RIGHT LOBE: The right lobe of the thyroid gland measures 4.6 x 1.9 x 2.5 cm. There is a homogeneous echotexture. Personal Care Worker notes at least 4 nodules unchanged from the previous study, the largest solid nodule measures 1.4 x 1.9 x 1.5 cm. LEFT LOBE: The left lobe of the thyroid gland measures 4.9 x 1.6 x 2.9 cm. There is a homogeneous echotexture. Personal Care Worker notes 3 nodules, largest measures 2.0 x 1.3 x 1.5 cm. ISTHMUS: The isthmus measures 0.3 cm. The regional lymph nodes are normal. US/Thyroid IMPRESSION: Borderline enlarged homogeneous thyroid gland with multiple stable bilateral nodules. Findings are again consistent with goiter with no significant interval change in the nodules since the previous study. Electronically Signed: Maurice Red MD at 11:22 EDT , Service support ,
== END | disposition home or self-care (01) ==
LOC: US 10:01
PROVIDERS: PCP Family Medicine; Referring Provider Family Medicine; Visit Provider Family Medicine
DX: E04.2 Nontoxic multinodular goiter (principal)
CPT/HCPCS: 76536

== ENCOUNTER → 2021-01-21 16:03 | Outpatient (CLI) | payer MEDICARE, OTHER, SELFPAY ==
[2021-01-21 15:20] VITALS: BMI 19.0
[2021-01-21 16:39] LABS: Absolute Lymphocyte Count 2.57 X10^3/uL (0.83-4.51); Absolute Neutrophil Count 3.6 X10^3/uL (2.0-7.7); Basophil# 0.04 X10^3/uL; Basophil% 0.6 % (0-1); Eosinophil# 0.19 X10^3/uL; Eosinophils% 2.7 % (0-5); Hematocrit 41.9 % (37-47); Hemoglobin 13.4 g/dL (12.0-15.0); Lymphocyte # 2.57 X10^3/ul (4.0); Lymphocyte % 36.6 % (19-41); Mean Corpuscular Hgb 31.3 pg (27.0-32.0); Mean Corpuscular Volume 97.9 fL (81-99); Mean Platelet Vol. 10.2 fl (6.2-12.0); Monocyte# 0.59 X10^3/uL; Monocyte% 8.4 % (0-10); NRBC Flagged by Analyzer 0 % (0-5); Neutrophil # 3.62 X10^3/uL (2.7-7.7); Neutrophil % 51.4 % (47-70); Platelet Count 214 K/mm3 (150-450); RBC Distribution Width CV 12.3 % (11.6-14.6); RBC Distribution Width SD 44.6 fl (35.1-43.9); Red Blood Count 4.28 M/mm3 (4.2-5.4)
[2021-01-21 17:38] LABS: AST(SGOT) 21 U/L (15-37); Alanine Aminotransfer ALT/SGPT 17 U/L (13-56); Alkaline Phosphatase 94 U/L (45-117); Anion Gap 6 (5-15); BUN 14 mg/dL (7-18); BUN/Creat Ratio 20.9 RATIO (10-20); Bilirubin, Direct 0.12 mg/dL (0.00-0.30); Calcium,Total 9.3 mg/dL (8.5-10.1); Chloride 103 mmol/L (98-107); Cholesterol 245 mg/dL (200); Creatinine, Serum 0.67 mg/dL (0.55-1.02); EST Glomerular Filtration Rate 92 mL/min (>60); Est Glom Filt Rate - Afr Amer 112 mL/min (>60); Globulin 3.3 g/dL (2.2-4.2); Glucose 87 mg/dL (74-106); High Density Lipoprotein 59 mg/dL; Protein, Total 7.3 g/dL (6.4-8.2); Sodium Level 139 mmol/L (136-145); T4 Total, Thyroxin 10.9 ug/dL (4.8-13.9); Thyroid Stim Hormone (TSH) 0.03 uIU/mL (0.358-3.74); Triglycerides 278 mg/dL; Very Low Density Lipoprotein 56 mg/dL (5-40)
== END ==
PROVIDERS: PCP Family Medicine; Referring Provider Internal Medicine Cardiovascular Disease; Visit Provider Internal Medicine Cardiovascular Disease
DX: I42.8 Other cardiomyopathies (principal); I50.22 Chronic systolic (congestive) heart failure; I47.2 Ventricular tachycardia
CPT/HCPCS: 36415; 80048; 80061; 80076; 84436; 84443; 85025

== ENCOUNTER → 2021-02-08 08:26 | Outpatient (CLI) | payer MEDICARE, OTHER, SELFPAY ==
[2021-01-21 15:20] VITALS: BMI 19.0
--- NOTE | 2021-02-08 08:28 | ECHOD_ITS ---
Reason For Study: DYSPNEA/SOB Procedure This was a 2D Doppler, Color Flow transthoracic echocardiogram. Exam performed in department. Left Ventricle Mildly dilated left ventricle. The estimated ejection fraction is 20 %. Severe global left ventricular systolic dysfunction. Stage 1 diastolic dysfunction. No regional wall motion abnormalities noted. Right Ventricle Normal RV size. ICD or pacer leads identified within the right ventricle. Normal systolic function. Atria Normal left atrium. Normal right atrium. Mitral Valve Normal mitral valve. Tricuspid Valve Normal tricuspid valve. Aortic Valve Normal aortic valve. Trisinus/trileaflet aortic valve. Pulmonic Valve Normal pulmonic valve. Great Vessels Normal aortic root. The pulmonary artery is normal size. Normal inferior vena cava. Pericardium/Pleural No pericardial effusion. MMode/2D Measurements & Calculations LVIDd: 6.6 cm IVSd: 0.97 cm Ao root diam: 3.1 cm LVIDs: 6.3 cm LVPWd: 0.94 cm RVDd: 2.9 cm FS: 4.9 % LAV(MOD-bp): 57.9 ml EDV(MOD-sp4): 115.8 ml EDV(MOD-sp2): 112.8 ml LAV(MOD-bp) Indexed: 38.0 ml/m2 ESV(MOD-sp4): 91.6 ml EF(MOD-sp2): 24.0 % LAV(MOD-sp2): 47.1 ml EF(MOD-sp4): 20.9 % LAV(MOD-sp4): 51.5 ml SV(MOD-sp4): 24.2 ml SV(MOD-sp2): 27.1 ml LA A4 area: 20.0 cm2 LA dimension(2D): 3.7 cm RA A4 area: 11.9 cm2 Time Measurements MV dec time: 0.15 sec Doppler Measurements & Calculations MV E max moo: 60.5 cm/sec Lat Peak E' Moo: 3.1 cm/sec Med Peak E' Moo: 2.6 cm/sec MV A max moo: 102.6 cm/sec E/E' lat: 19.3 E/E' med: 23.1 MV E/A: 0.59 Ao V2 max: 112.6 cm/sec LV V1 max: 93.7 cm/sec PA V2 max: 66.3 cm/sec Ao max P.1 mmHg LV V1 max P.5 mmHg Interpretation Summary Mildly dilated left ventricle. The estimated ejection fraction is 20 %. Severe global left ventricular systolic dysfunction. Stage 1 diastolic dysfunction. Compared to previous study, the left ventricular systolic function is the same.. Ordering Physician: Quentin Baez Referring Physician: Abraham Bahena Performed By: Cecile Fuentes RDCS, RVT
[2021-02-08 09:46] LABS: Mucous, Urine 0 SEEN /hpf (<or=2+); White Blood Cells 0 SEEN /hpf (0-5)
[2021-02-08 12:03] LABS: Color, Urine Yellow (Yellow); Glucose, Dipstick Normal (Normal); Ketone-Dipstick Negative (Negative); Leukocyte Esterase-Dipstick Negative /ul (Negative); Nitrite-Dipstick Negative (Negative); Occult Blood-Urine 10 /ul (Negative); Protein-Dipstick Negative (Negative); Specific Gravity, Urine 1.025 (1.002-1.030); Urine Bilirubin Dipstick Negative (Negative); Urine Clarity Sl. Cloudy (Clear); Urine Urobilinogen Normal (Normal)
[2021-02-08 12:03] LABS: Absolute Lymphocyte Count 1.69 X10^3/uL (0.83-4.51); Absolute Neutrophil Count 4.6 X10^3/uL (2.0-7.7); Basophil# 0.02 X10^3/uL; Basophil% 0.3 % (0-1); Eosinophil# 0.16 X10^3/uL; Eosinophils% 2.3 % (0-5); Hematocrit 40.9 % (37-47); Hemoglobin 13.2 g/dL (12.0-15.0); Lymphocyte # 1.69 X10^3/ul (4.0); Lymphocyte % 24.1 % (19-41); Mean Corp Hgb Conc 32.3 g/dL (32-36); Mean Corpuscular Hgb 31.5 pg (27.0-32.0); Mean Corpuscular Volume 97.6 fL (81-99); Monocyte# 0.51 X10^3/uL; Monocyte% 7.3 % (0-10); NRBC Flagged by Analyzer 0 % (0-5); Neutrophil % 65.7 % (47-70); Platelet Count 203 K/mm3 (150-450); RBC Distribution Width CV 12.2 % (11.6-14.6); RBC Distribution Width SD 44.1 fl (35.1-43.9); Red Blood Count 4.19 M/mm3 (4.2-5.4)
[2021-02-08 12:10] LABS: Bacteria 1+ /hpf (None Seen); Red Blood Cells-Urine 0-5 SEEN /hpf (0-5); Squamous Epithelial Cells - UA 0-5 SEEN /hpf (5-10)
[2021-02-08 12:35] LABS: ALB/GLOB Ratio 1.1 RATIO (0.9-2.4); AST(SGOT) 16 U/L (15-37); Alanine Aminotransfer ALT/SGPT 17 U/L (13-56); Albumin, Serum 3.7 g/dL (3.2-5.0); Alkaline Phosphatase 86 U/L (45-117); Anion Gap 7 (5-15); BUN 15 mg/dL (7-18); BUN/Creat Ratio 24.4 RATIO (10-20); Calcium,Total 9.1 mg/dL (8.5-10.1); Chloride 106 mmol/L (98-107); Cholesterol 240 mg/dL (200); Creatinine, Serum 0.62 mg/dL (0.55-1.02); EST Glomerular Filtration Rate 102 mL/min (>60); Est Glom Filt Rate - Afr Amer 123 mL/min (>60); Globulin 3.3 g/dL (2.2-4.2); Glucose 94 mg/dL (74-106); High Density Lipoprotein 59 mg/dL; Potassium 3.9 mmol/L (3.5-5.1); Sodium Level 139 mmol/L (136-145); T4 Free Direct 0.97 ng/dL (0.76-1.46); Thyroid Stim Hormone (TSH) 0.03 uIU/mL (0.358-3.74); Triglycerides 178 mg/dL; Very Low Density Lipoprotein 36 mg/dL (5-40)
== END ==
PROVIDERS: PCP Family Medicine; Referring Provider Internal Medicine Cardiovascular Disease; Visit Provider Internal Medicine Cardiovascular Disease
DX: I42.8 Other cardiomyopathies (principal); I25.10 Atherosclerotic heart disease of native coronary artery without angina pectoris; E05.90 Thyrotoxicosis, unspecified without thyrotoxic crisis or storm; R06.00 Dyspnea, unspecified; R06.02 Shortness of breath
CPT/HCPCS: 80053; 80061; 81001; 84439; 84443; 85025; 86769; 93306

== ENCOUNTER → 2021-05-31 09:43 | Outpatient (CLI) | payer MEDICARE, OTHER, SELFPAY ==
[2021-01-21 15:20] VITALS: BMI 19.0
[2021-05-31 09:51] LABS: Bacteria 0 SEEN /hpf (None Seen); Mucous, Urine 0 SEEN /hpf (<or=2+); Red Blood Cells-Urine 0 SEEN /hpf (0-5); White Blood Cells 0 SEEN /hpf (0-5)
[2021-05-31 12:48] LABS: Color, Urine Yellow (Yellow); Glucose, Dipstick Normal (Normal); Ketone-Dipstick Negative (Negative); Leukocyte Esterase-Dipstick Negative /ul (Negative); Nitrite-Dipstick Negative (Negative); Occult Blood-Urine Negative /ul (Negative); Protein-Dipstick Negative (Negative); Urine Bilirubin Dipstick Negative (Negative); Urine Clarity Sl. Cloudy (Clear); Urine Urobilinogen Normal (Normal)
[2021-05-31 12:55] LABS: Squamous Epithelial Cells - UA 0-5 SEEN /hpf (5-10)
[2021-05-31 12:55] LABS: Absolute Lymphocyte Count 1.68 X10^3/uL (0.83-4.51); Absolute Neutrophil Count 3.1 X10^3/uL (2.0-7.7); Basophil# 0.03 X10^3/uL; Basophil% 0.5 % (0-1); Eosinophil# 0.21 X10^3/uL; Eosinophils% 3.8 % (0-5); Hematocrit 39.9 % (37-47); Hemoglobin 12.9 g/dL (12.0-15.0); Lymphocyte # 1.68 X10^3/ul (0.83-4.51); Lymphocyte % 30.6 % (19-41); Mean Corp Hgb Conc 32.3 g/dL (32-36); Mean Corpuscular Hgb 30.9 pg (27.0-32.0); Mean Corpuscular Volume 95.7 fL (81-99); Mean Platelet Vol. 11.3 fl (6.2-12.0); Monocyte# 0.48 X10^3/uL; Monocyte% 8.7 % (0-10); NRBC Flagged by Analyzer 0 % (0-5); Neutrophil # 3.08 X10^3/uL (2.7-7.7); Neutrophil % 56.2 % (47-70); Platelet Count 183 K/mm3 (150-450); RBC Distribution Width CV 11.9 % (11.6-14.6); RBC Distribution Width SD 41.5 fl (35.1-43.9); Red Blood Count 4.17 M/mm3 (4.2-5.4); White Blood Count 5.5 K/mm3 (4.4-11.0)
[2021-05-31 13:35] LABS: AST(SGOT) 18 U/L (15-37); Alanine Aminotransfer ALT/SGPT 16 U/L (13-56); Albumin, Serum 3.5 g/dL (3.2-5.0); Alkaline Phosphatase 86 U/L (45-117); Anion Gap 6 (5-15); BUN 13 mg/dL (7-18); BUN/Creat Ratio 19.2 RATIO (10-20); Chloride 107 mmol/L (98-107); Cholesterol 256 mg/dL (200); Creatinine, Serum 0.68 mg/dL (0.55-1.02); EST Glomerular Filtration Rate 91 mL/min (>60); Est Glom Filt Rate - Afr Amer 110 mL/min (>60); Globulin 3.5 g/dL (2.2-4.2); Glucose 77 mg/dL (74-106); High Density Lipoprotein 56 mg/dL; Potassium 3.7 mmol/L (3.5-5.1); Sodium Level 141 mmol/L (136-145); T4 Free Direct 0.97 ng/dL (0.76-1.46); Thyroid Stim Hormone (TSH) 0.02 uIU/mL (0.358-3.74); Triglycerides 241 mg/dL; Very Low Density Lipoprotein 48 mg/dL (5-40)
[2021-06-02 16:09] LABS: Thyroid Stim Immunoglob <0.10 IU/L (0.00-0.55)
[2021-06-03 16:20] LABS: Anti-Thyroglobulin AB < 1.0 IU/mL (0.0-0.9); Thyroglobulin, Serum Qt. 94.8 ng/mL (1.5-38.5); Thyroid Peroxidase AB < 8 IU/mL (0-34)
== END ==
PROVIDERS: PCP Family Medicine; Referring Provider Family Medicine; Visit Provider Family Medicine
DX: E05.90 Thyrotoxicosis, unspecified without thyrotoxic crisis or storm (principal); I25.10 Atherosclerotic heart disease of native coronary artery without angina pectoris; Z72.0 Tobacco use
CPT/HCPCS: 80053; 80061; 81001; 84432; 84439; 84443; 84445; 85025; 86376; 86800

== ENCOUNTER → 2021-09-22 09:56 | Outpatient (CLI) | payer MEDICARE, OTHER, SELFPAY ==
--- NOTE | 2021-09-22 10:02 | BD_ITS ---
STUDY: DUAL ENERGY X-RAY ABSORPTIOMETRY / DXA REASON FOR EXAM: Female, 71 years old. Z780. Patient is postmenopausal. TECHNIQUE: Bone Mineral Density (BMD) measurements of lumbar spine and bilateral hips were obtained. COMPARISON: None. FINDINGS: Lumbar Spine (L1-L4): g/cm2 (0.784) / T-score (-2.4) / Z-score (-0.2) Findings are suggestive of osteopenia with a high fracture risk. Left Femur Total: g/cm2 (0.521) / T-score (-3.4) / Z-score (-1.9) Left Femoral Neck: g/cm2 (0.470) / T-score (-3.3) / Z-score (-1.5) Right Femur Total: g/cm2 (0.535) / T-score (-3.3) / Z-score (-1.8) Right Femoral Neck: g/cm2 (0.466) / T-score (-3.4) / Z-score (-1.6) BD/Dexa Bone Density Study IMPRESSION: The patient is considered osteoporotic as outlined below according to World Abraham Organization (WHO) criteria with a high fracture risk. Reference Information: The T-score is the number of standard deviations above or below the standard which is normal for young adults at their peak bone mineral density. The World Health Organization (WHO) interprets the T-scores as follows: Above -1 Normal bone density Between -1 and -2.5 Osteopenia Equal to / or below -2.5 Osteoporosis As a practical clinical guideline, osteopenia may be graded as follows: Mild -1 through -1.5 Moderate -1.6 through -2.0 Severe -2.1 through -2.4 The Z-score is the number of standard deviations above or below age-matched controls. A Z-score of less than -1.5 would be considered abnormal. References: 1. NIH Osteoporosis and Related Bone Diseases www osteo.org 2. International Society for Clinical Densitometry www iscd.org 3. National Osteoporosis Foundation www nof.org Electronically Signed: Joe Rangel MD at 12:43 EDT , Service support ,
--- NOTE | 2021-09-22 13:34 | CT_ITS ---
STUDY: CT ABDOMEN AND PELVIS WITH CONTRAST REASON FOR EXAM: Female, 71 years old. EPIGASTRIC PAIN RADIATION DOSAGE (If Supplied By Facility): CTDIvol = ( 14.97 ) mGy, DLP = ( 300.85 ) mGycm TECHNIQUE: Transaxial images were obtained from the dome of the diaphragm to the symphysis pubis without oral contrast. IV 100mL Isovue-300 was administered. Sagittal and coronal images were reconstructed. Individualized dose optimization techniques were used for this CT. COMPARISON: None. FINDINGS: The visualized lung bases are unremarkable. There are pacemaker wires in the heart. Normal liver. There are multiple gallstones. Normal spleen. Normal pancreas. Normal bilateral adrenal glands. Normal right kidney. Normal left kidney. Normal visualized stomach. Normal small intestine. Normal colon. There is non-visualization of the appendix. There is diffuse atherosclerotic calcification of the abdominal aorta, without a demonstrated aneurysm. Normal inferior vena cava. Normal retroperitoneum. Normal urinary bladder. There is absence of the uterus consistent with a prior hysterectomy. Normal abdominal wall. There is lumbar levoscoliosis with degenerative change. CT/Abdomen/Pelvis WITH Contrast IMPRESSION: Multiple gallstones. No biliary dilatation. Colonic diverticulosis. No obstruction or abscess. Electronically Signed: Joao Naranjo MD at 16:21 EDT , Service support ,
[2021-09-22 15:25] LABS: Absolute Lymphocyte Count 1.92 X10^3/uL (0.83-4.51); Absolute Neutrophil Count 4.3 X10^3/uL (2.0-7.7); Basophil# 0.03 X10^3/uL; Basophil% 0.4 % (0-1); Eosinophil# 0.11 X10^3/uL; Eosinophils% 1.6 % (0-5); Hematocrit 39.4 % (37-47); Hemoglobin 12.7 g/dL (12.0-15.0); Lymphocyte # 1.92 X10^3/ul (0.83-4.51); Lymphocyte % 27.8 % (19-41); Mean Corp Hgb Conc 32.2 g/dL (32-36); Mean Corpuscular Hgb 30.9 pg (27.0-32.0); Mean Corpuscular Volume 95.9 fL (81-99); Monocyte# 0.54 X10^3/uL; Monocyte% 7.8 % (0-10); NRBC Flagged by Analyzer 0 % (0-5); Neutrophil # 4.27 X10^3/uL (2.7-7.7); Platelet Count 250 K/mm3 (150-450); RBC Distribution Width CV 12.4 % (11.6-14.6); Red Blood Count 4.11 M/mm3 (4.2-5.4); White Blood Count 6.9 K/mm3 (4.4-11.0)
[2021-09-22 15:37] LABS: AST(SGOT) 10 U/L (15-37); Alanine Aminotransfer ALT/SGPT 10 U/L (13-56); Albumin, Serum 3.2 g/dL (3.2-5.0); Alkaline Phosphatase 79 U/L (45-117); Anion Gap 6 (5-15); BUN 12 mg/dL (7-18); BUN/Creat Ratio 19.7 RATIO (10-20); Calcium,Total 8.9 mg/dL (8.5-10.1); Chloride 106 mmol/L (98-107); Creatinine, Serum 0.61 mg/dL (0.55-1.02); EST Glomerular Filtration Rate 103 mL/min (>60); Est Glom Filt Rate - Afr Amer 124 mL/min (>60); Globulin 3.3 g/dL (2.2-4.2); Glucose 90 mg/dL (74-106); Potassium 4.3 mmol/L (3.5-5.1); Protein, Total 6.5 g/dL (6.4-8.2); Sodium Level 139 mmol/L (136-145)
== END ==
PROVIDERS: PCP Family Medicine; Referring Provider Family Medicine; Visit Provider Family Medicine
DX: R10.13 Epigastric pain (principal); Z78.0 Asymptomatic menopausal state
CPT/HCPCS: 36415; 74177; 77080; 80053; 85025; Q9967

== ENCOUNTER → 2021-11-10 16:38 | Outpatient (CLI) | payer MEDICARE, OTHER, SELFPAY ==
[2021-11-10 18:03] LABS: AST(SGOT) 15 U/L (15-37); Alanine Aminotransfer ALT/SGPT 16 U/L (13-56); Albumin, Serum 3.4 g/dL (3.2-5.0); Alkaline Phosphatase 72 U/L (45-117); Anion Gap 9 (5-15); BUN 12 mg/dL (7-18); Chloride 107 mmol/L (98-107); Creatinine, Serum 0.57 mg/dL (0.55-1.02); EST Glomerular Filtration Rate 111 mL/min (>60); Est Glom Filt Rate - Afr Amer 134 mL/min (>60); Globulin 3.5 g/dL (2.2-4.2); Glucose 86 mg/dL (74-106); Potassium 3.5 mmol/L (3.5-5.1); Protein, Total 6.9 g/dL (6.4-8.2); Sodium Level 142 mmol/L (136-145)
[2021-11-10 18:06] LABS: Vitamin D,25 Hydroxy 13.8 ng/mL
== END ==
PROVIDERS: PCP Family Medicine; Referring Provider Family Medicine; Visit Provider Family Medicine
DX: M81.0 Age-related osteoporosis without current pathological fracture (principal)
CPT/HCPCS: 36415; 80053; 82306

== ENCOUNTER 2022-03-09 13:43 | Outpatient (CLI) | payer MEDICARE, OTHER, SELFPAY ==
[2022-03-09 13:51] LABS: Bacteria 0 SEEN /hpf (None Seen); Red Blood Cells-Urine 0 SEEN /hpf (0-5)
--- NOTE | 2022-03-09 13:59 | RAD_ITS ---
Bilateral hips and pelvis FINDINGS: The hips are intact. No evidence of fracture. The joint spaces are maintained Pelvis: There is no evidence of fracture. Bony structures intact There are vascular calcifications IMPRESSION: No acute findings. Electronically Signed: Eric De Jesus MD at 2:48 EDT , RAD/Hips B/L min 2 views w/ Pelvis
[2022-03-09 15:17] LABS: Absolute Lymphocyte Count 2.16 X10^3/uL (0.83-4.51); Absolute Neutrophil Count 3.5 X10^3/uL (2.0-7.7); Basophil# 0.03 X10^3/uL; Basophil% 0.5 % (0-1); Eosinophil# 0.13 X10^3/uL; Hematocrit 36.9 % (37-47); Hemoglobin 12.3 g/dL (12.0-15.0); Lymphocyte # 2.16 X10^3/ul (0.83-4.51); Lymphocyte % 33.6 % (19-41); Mean Corp Hgb Conc 33.3 g/dL (32-36); Mean Corpuscular Hgb 31.5 pg (27.0-32.0); Mean Corpuscular Volume 94.4 fL (81-99); Mean Platelet Vol. 11.1 fl (6.2-12.0); Monocyte# 0.58 X10^3/uL; NRBC Flagged by Analyzer 0 % (0-5); Neutrophil # 3.51 X10^3/uL (2.7-7.7); Neutrophil % 54.6 % (47-70); Platelet Count 200 K/mm3 (150-450); RBC Distribution Width CV 12.8 % (11.6-14.6); RBC Distribution Width SD 44.2 fl (35.1-43.9); Red Blood Count 3.91 M/mm3 (4.2-5.4); White Blood Count 6.4 K/mm3 (4.4-11.0)
[2022-03-09 15:30] LABS: Glucose, Dipstick Normal (Normal); Ketone-Dipstick 5 mg/dl (Negative); Leukocyte Esterase-Dipstick 25 /ul (Negative); Nitrite-Dipstick Negative (Negative); Occult Blood-Urine 10 /ul (Negative); Protein-Dipstick Negative (Negative); Specific Gravity, Urine 1.025 (1.002-1.030); Urine Bilirubin Dipstick Negative (Negative); Urine Urobilinogen Normal (Normal)
[2022-03-09 16:02] LABS: ALB/GLOB Ratio 1.1 RATIO (0.9-2.4); AST(SGOT) 17 U/L (15-37); Alanine Aminotransfer ALT/SGPT 12 U/L (13-56); Albumin, Serum 3.5 g/dL (3.2-5.0); Alkaline Phosphatase 73 U/L (45-117); Anion Gap 7 (5-15); BUN 15 mg/dL (7-18); BUN/Creat Ratio 24.8 RATIO (10-20); Calcium,Total 9.1 mg/dL (8.5-10.1); Chloride 109 mmol/L (98-107); Cholesterol 206 mg/dL (200); Creatinine, Serum 0.61 mg/dL (0.55-1.02); EST Glomerular Filtration Rate 103 mL/min (>60); Est Glom Filt Rate - Afr Amer 125 mL/min (>60); Globulin 3.3 g/dL (2.2-4.2); Glucose 81 mg/dL (74-106); High Density Lipoprotein 53 mg/dL; Magnesium 2.2 mg/dL (1.6-2.6); Potassium 3.7 mmol/L (3.5-5.1); Protein, Total 6.8 g/dL (6.4-8.2); Sodium Level 141 mmol/L (136-145); T4 Free Direct 1.14 ng/dL (0.76-1.46); Thyroid Stim Hormone (TSH) 0.01 uIU/mL (0.358-3.74); Triglycerides 214 mg/dL; Very Low Density Lipoprotein 43 mg/dL (5-40)
[2022-03-09 16:24] LABS: Color, Urine Yellow (Yellow); Urine Clarity Clear (Clear); Vitamin D,25 Hydroxy 56.3 ng/mL
[2022-03-09 16:26] LABS: Mucous, Urine RARE /hpf (<or=2+); Squamous Epithelial Cells - UA 0-5 SEEN /hpf (5-10); White Blood Cells 0-5 SEEN /hpf (0-5)
[2022-03-12 00:07] LABS: Thyroid Stim Immunoglob <0.10 IU/L (0.00-0.55)
[2022-03-12 11:22] LABS: Anti-Thyroglobulin AB < 1.0 IU/mL (0.0-0.9); Thyroglobulin, Serum Qt. 81.9 ng/mL (1.5-38.5); Thyroid Peroxidase AB 10 IU/mL (0-34)
== END 2022-03-09 23:59 | disposition home or self-care (01) ==
PROVIDERS: PCP Family Medicine; Referring Provider Family Medicine; Visit Provider Family Medicine
DX: M25.551 Pain in right hip (principal); I50.20 Unspecified systolic (congestive) heart failure; M25.552 Pain in left hip; E78.5 Hyperlipidemia, unspecified; E05.90 Thyrotoxicosis, unspecified without thyrotoxic crisis or storm; E55.9 Vitamin D deficiency, unspecified; Z72.0 Tobacco use
CPT/HCPCS: 36415; 73521; 80053; 80061; 81001; 82306; 83735; 84432; 84439; 84443; 84445; 85025; 86376; 86800

== ENCOUNTER → 2022-03-16 | Outpatient (CLI) | payer MEDICARE, OTHER, SELFPAY ==
--- NOTE | 2022-03-16 13:47 | US_ITS ---
STUDY: THYROID ULTRASOUND REASON FOR EXAM: Female, 71 years old. NODULES TECHNIQUE: Ultrasound evaluation of the thyroid was performed with real-time and static cantu-scale imaging. COMPARISON: Jun 08 2020 10:16am FINDINGS: RIGHT LOBE: The right lobe of the thyroid gland measures 5.2x2.2x2.3 cm. There is a homogeneous echotexture. There are nodules. Multiple nodules. The largest are measured. Nodule is 19 x 13 x 14mm and is vascular. cystic nodule is 15 x 7 x 10 mm. Lobulated nodule is 8.7 x 4.9 x 8 mm. Lobulated nodule is 8.4 x 4.3 x 8 mm. LEFT LOBE: The left lobe of the thyroid gland measures 4.7 x 1.7 x 2.6 cm. There is a homogeneous echotexture. Multiple nodules. The largest are measured. Cystic solid nodule is 21 x 14 x 13mm. Hypoechoic nodule is 12 x 7 x 5.7 mm. Hypoechoic nodule is 9 x 6 x 6mm. Hypoechoic nodule is 11 x 8 x 8mm. ISTHMUS: The isthmus measures 2.2 mm. US/Thyroid IMPRESSION: The RIGHT 8.7mm and 8.4mm lobulated nodules. This nodule is mixed cystic and solid, hypoechoic, [id number], is lobulated or irregular and contains no echogenic foci. TI-RADS points: 5. TI-RADS category: TR4. This nodule is moderately suspicious but no FNA or follow-up is necessary given the small size of this nodule. The hypoechoic 9mm and 11mm left nodules. This nodule is mixed cystic and solid, hypoechoic, [id number], smoothly marginated and contains no echogenic foci. TI-RADS points: 3. TI-RADS category: TR3. This nodule is mildly suspicious but no FNA or follow-up is necessary given the small size of this nodule. Electronically Signed: Servando Lyman MD at 15:44 EDT ,
== END | disposition home or self-care (01) ==
LOC: US 13:46
PROVIDERS: PCP Family Medicine; Referring Provider Family Medicine; Visit Provider Family Medicine
DX: E04.2 Nontoxic multinodular goiter (principal)
CPT/HCPCS: 76536

== ENCOUNTER → 2023-03-01 | Outpatient (CLI) | payer MEDICARE, OTHER, SELFPAY ==
[2023-03-01 15:24] LABS: Absolute Lymphocyte Count 2.21 X10^3/uL (0.83-4.51); Absolute Neutrophil Count 3.5 X10^3/uL (2.0-7.7); Basophil# 0.03 X10^3/uL; Basophil% 0.5 % (0-1); Eosinophil# 0.21 X10^3/uL; Eosinophils% 3.2 % (0-5); Hemoglobin 12.7 g/dL (12.0-15.0); Lymphocyte # 2.21 X10^3/ul (0.83-4.51); Lymphocyte % 33.8 % (19-41); Mean Corp Hgb Conc 31.8 g/dL (32-36); Mean Corpuscular Hgb 31.4 pg (27.0-32.0); Mean Corpuscular Volume 98.8 fL (81-99); Mean Platelet Vol. 11.2 fl (6.2-12.0); Monocyte# 0.56 X10^3/uL; Monocyte% 8.6 % (0-10); NRBC Flagged by Analyzer 0 % (0-5); Neutrophil # 3.51 X10^3/uL (2.7-7.7); Neutrophil % 53.6 % (47-70); Platelet Count 230 K/mm3 (150-450); RBC Distribution Width CV 12.6 % (11.6-14.6); RBC Distribution Width SD 45.4 fl (35.1-43.9); Red Blood Count 4.05 M/mm3 (4.2-5.4); White Blood Count 6.5 K/mm3 (4.4-11.0)
[2023-03-01 16:07] LABS: Vitamin D,25 Hydroxy 29.7 ng/mL
[2023-03-01 16:13] LABS: ALB/GLOB Ratio 1.1 RATIO (0.9-2.4); AST(SGOT) 17 U/L (15-37); Alanine Aminotransfer ALT/SGPT 13 U/L (13-56); Albumin, Serum 3.6 g/dL (3.2-5.0); Alkaline Phosphatase 72 U/L (45-117); Anion Gap 2 (5-15); BUN 13 mg/dL (7-18); BUN/Creat Ratio 20.4 RATIO (10-20); Calcium,Total 9.2 mg/dL (8.5-10.1); Chloride 109 mmol/L (98-107); Cholesterol 220 mg/dL (200); Creatinine, Serum 0.64 mg/dL (0.55-1.02); EST Glomerular Filtration Rate 97 mL/min (>60); Est Glom Filt Rate - Afr Amer 118 mL/min (>60); Globulin 3.2 g/dL (2.2-4.2); Glucose 81 mg/dL (74-106); High Density Lipoprotein 61 mg/dL; Potassium 3.8 mmol/L (3.5-5.1); Protein, Total 6.8 g/dL (6.4-8.2); Sodium Level 137 mmol/L (136-145); T4 Free Direct 1.17 ng/dL (0.76-1.46); Thyroid Stim Hormone (TSH) 0.01 uIU/mL (0.358-3.74); Triglycerides 222 mg/dL; Very Low Density Lipoprotein 44 mg/dL (5-40)
[2023-03-04 08:09] LABS: Thyroid Stim Immunoglob <0.10 IU/L (0.00-0.55)
[2023-03-04 08:32] LABS: Anti-Thyroglobulin AB < 1.0 IU/mL (0.0-0.9); Thyroglobulin, Serum Qt. 87.3 ng/mL (1.5-38.5); Thyroid Peroxidase AB < 9 IU/mL (0-34)
== END | disposition home or self-care (01) ==
LOC: MFPLAB 13:50
PROVIDERS: PCP Family Medicine; Referring Provider Family Medicine; Visit Provider Family Medicine
DX: I50.20 Unspecified systolic (congestive) heart failure (principal); E78.5 Hyperlipidemia, unspecified; E05.90 Thyrotoxicosis, unspecified without thyrotoxic crisis or storm; M81.0 Age-related osteoporosis without current pathological fracture
CPT/HCPCS: 36415; 80053; 80061; 82306; 84432; 84439; 84443; 84445; 85025; 86376; 86800

== ENCOUNTER 2023-11-22 17:24 | Emergency (ER) | payer MEDICARE, OTHER, SELFPAY ==
[2023-11-22 17:26] VITALS: BP 124/91; PULSE 73; RESP 16; TEMP 36; O2SAT 99; BMI 18.0
[2023-11-22 17:52] LABS: Hematocrit 38.7 % (37-47); Hemoglobin 12.5 g/dL (12.0-15.0); Mean Corp Hgb Conc 32.3 g/dL (32-36); Mean Corpuscular Hgb 30.9 pg (27.0-32.0); Mean Corpuscular Volume 95.6 fL (81-99); Mean Platelet Vol. 9.9 fl (6.2-12.0); Platelet Count 232 K/mm3 (150-450); RBC Distribution Width CV 12.4 % (11.6-14.6); RBC Distribution Width SD 43.7 fl (35.1-43.9); Red Blood Count 4.05 M/mm3 (4.2-5.4); White Blood Count 10.2 K/mm3 (4.4-11.0)
[2023-11-22 17:53] LABS: Color, Urine Yellow (Yellow); Glucose, Dipstick Normal (Normal); Ketone-Dipstick 15 mg/dl (Negative); Leukocyte Esterase-Dipstick 100 /ul (Negative); Nitrite-Dipstick Negative (Negative); Occult Blood-Urine 25 /ul (Negative); Protein-Dipstick 30 mg/dl (Negative); Urine Clarity Sl. Cloudy (Clear); Urine Urobilinogen 1 mg/dl (Normal)
[2023-11-22 18:07] LABS: Urine Bilirubin Dipstick 1 mg/dL (Negative)
[2023-11-22 18:09] LABS: Bacteria RARE /hpf (None Seen); Calcium Oxalate Crystals Ur 1+ /hpf (<or=2+); Mucous, Urine RARE /hpf (<or=2+); Red Blood Cells-Urine 0-5 SEEN /hpf (0-5); Squamous Epithelial Cells - UA 5-10 SEEN /hpf (5-10); White Blood Cells 10-25 SEEN /hpf (0-5)
[2023-11-22 18:10] LABS: Anion Gap 8 (5-15); BUN 24 mg/dL (7-18); BUN/Creat Ratio 28.9 RATIO (10-20); Calcium,Total 8.8 mg/dL (8.5-10.1); Chloride 104 mmol/L (98-107); Creatinine, Serum 0.83 mg/dL (0.55-1.02); EST Glomerular Filtration Rate 71 mL/min (>60); Est Glom Filt Rate - Afr Amer 86 mL/min (>60); Estimated Creatinine Clearance 45.39 ml/min; Glucose 98 mg/dL (74-106); Potassium 3.5 mmol/L (3.5-5.1); Sodium Level 138 mmol/L (136-145)
--- NOTE | 2023-11-22 18:55 | ED.VIS.GI ---
HPI HPI - GI History of Present Illness Chief Complaint: Nausea/Vomiting/Diarrhea Narrative Narrative: -year-old female presenting with nausea, vomiting, diarrhea. This has been ongoing for about a day. Patient states she was initially sick prior to this and went to the urgent care where they tested her urine and told her she had a UTI. She took a Cipro which she has had in the past and started to have nausea vomiting today. She states that she called the urgent care and was sent to the emergency room out of concern she was allergic to Cipro. She states he is taken this in the past without any complications. She has not a fever but does admit to chills, body aches, diarrhea without any black or bloody stools. She does have history of recent use of antibiotics besides yesterday as she states she was treated for the sinusitis only. Denies fever as she has not checked her temperature. No shortness of breath, chest pain, palpitations. [facility] Medical History Abdominal pain Arthritis Back problem Chronic systolic (congestive) heart failure IBS (irritable bowel syndrome) Lipoma of arm Multiple thyroid nodules Nicotine dependence Non-ischemic cardiomyopathy Nonsustained ventricular tachycardia Thyroid disorder Wlvyn-Aoqwtakkn-Fmfzt (WPW) syndrome Home Medications furosemide 40 mg tablet (Lasix) 40 mg PO .PRN PRN edema shortness of breath #90 tabs 07/28/21 [Rx Last Taken Unknown] acetaminophen 500 mg capsule 1,000 mg PO ONCE 06/29/22 [History Last Taken Unknown] aspirin 81 mg tablet,delayed release (Adult Low Dose Aspirin) 81 mg PO QDAY PRN 06/29/22 [History Last Taken Unknown] carvedilol 25 mg tablet (Coreg) 25 mg PO BID #180 tabs 07/03/23 [Rx Last Taken Unknown] lisinopril 10 mg tablet 10 mg PO QDAY #90 tabs 07/03/23 [Rx Last Taken Unknown] amoxicillin 875 mg-potassium clavulanate 125 mg tablet 1 tab PO BID #20 tabs 10/17/23 [Rx Last Taken Unknown] methylprednisolone 4 mg tablets in a dose pack (Medrol (Dipak)) See Rx Instructions PO PER PKG DIR #21 tabs 10/17/23 [Rx Last Taken Unknown] ondansetron 4 mg disintegrating tablet 4 mg PO Q8H PRN PRN Nausea #20 tabs 11/22/23 [Rx Last Taken Unknown] Allergy/AdvReac Type Severity Reaction Status Date / Time vancomycin AdvReac itchy Verified 11/22/23 17:26 scalp cobweb on face Family History Mother Arthritis Asthma Brother Brain cancer Grandmother Arthritis Surgical History History of cardiac radiofrequency ablation (10/2003) History of hysterectomy History of implantable cardiac defibrillator (ICD) (07/28/11) History of left heart catheterization (10/2003) S/P angioplasty S/P thyroid biopsy (~05/2018) S/P tonsillectomy Social History Smoking Status: Current every day smoker tobacco type: cigarettes alcohol intake: current alcohol intake frequency: holidays/special occasions only substance use type: does not use caffeine: Yes Type: carbonated beverages Number of servings: 2 frequency: does not exercise seatbelt use: always ROS ROS ED Constitutional Constitutional ED: Reports chills and sweats; Denies fever(s) Eyes Eyes: Denies blurry vision or change in vision ENT ENT ED: Denies ear pain or sore throat Cardiovascular Cardiovascular: Denies chest pain, palpitations or racing heartbeat Respiratory/Chest Respiratory/Chest: Denies cough, dyspnea or sputum Gastrointestinal Gastrointestinal: Reports diarrhea, nausea and vomiting; Denies abdominal pain or constipation Genitourinary Genitourinary ED: Denies dysuria, hematuria or urinary frequency Musculoskeletal Musculoskeletal: Reports myalgias; Denies arthralgias or neck pain Integumentary Denies abscess, Abrasions or rash Neurologic Neurologic: Denies headache(s), paresthesias or weakness Psychiatric Psychiatric: Denies anxiety, depression, suicidal ideation or suicidal thoughts Endocrine Endocrinology: Denies polydipsia or polyuria EXAM Physical Exam Const Vital Signs: 11/22/23 17:26 11/22/23 19:21 Temperature 96.8 F L 96.7 F L Temperature Source Temporal Temporal Pulse Rate 73 73 Respiratory Rate 16 16 Blood Pressure 124/91 H 124/91 H Blood Pressure Mean 102 102 Pulse Ox 99 99 Oxygen Delivery Method Room Air Room Air Positive well nourished General Appearance ED: NAD; Negative for pallor HEENT Reports moist mucous membranes normocephalic and atraumatic Eyes PERRL and EOMs intact bilaterally Resp normal respiratory effort Auscultation: Negative for rales, rhonchi or wheezes Cardio regular rate and regular rhythm GI non-tender and non-distended Neuro CN's II-XII intact bilaterally Sensorium / Orientation: alert Psych mental status grossly normal Skin General Skin Exam: Negative for jaundice or pallor MDM MDM MDM Narrative Medical decision making narrative: Patient presenting with nausea, vomiting, diarrhea. Recently diagnosed with UTI. CBC was obtained to assess white blood cell count, hemoglobin, platelets. BMP to assess renal function, electrolytes, glucose. Urinalysis to assess for UTI. Urinalysis shows negative nitrites, 110 esterase, 0-5 RBCs, 10-25 WBCs, 5-10 squamous epithelial cells. There is rare bacteria. This is likely contaminated specimen. Patient did report that she had some dysuria yesterday. CBC unremarkable with normal white blood cell count of 10.2. Hemoglobin 12.5. No left shift. BUN/creatinine ratio is elevated and patient given a liter normal saline, Zofran, Toradol. On reevaluation at 9 PM patient is feeling much better. Urinalysis is negative for infection. It is contaminated. CBC shows normal white blood cell count of 10.2. Hemoglobin 12.5. Renal function and electrolytes within normal limits. Patient's COVID testing came back positive. Patient counseled we will give her Zofran for home for nausea and she is to drink plenty of fluids. Return precautions were discussed. Impression: 1. Nausea/vomiting 2. COVID-19 Lab Data Labs: Laboratory Results - last 24 hr 11/22/23 17:43 WBC 10.2 RBC 4.05 L Hgb 12.5 Hct 38.7 MCV 95.6 MCH 30.9 MCHC 32.3 RDW Std Deviation 43.7 RDW Coeff of Teena 12.4 Plt Count 232 MPV 9.9 Sodium 138 Potassium 3.5 Chloride 104 Carbon Dioxide 26.0 Anion Gap 8 BUN 24 H Creatinine 0.83 Estim Creat Clear Calc 45.39 Est GFR (MDRD) Af Amer 86 Est GFR (MDRD) Non-Af 71 BUN/Creatinine Ratio 28.9 H Glucose 98 Calcium 8.8 Urine Color Yellow Urine Clarity Sl. Cloudy Urine pH 5.0 Ur Specific [place] 1.030 Urine Protein 30 H Urine Glucose (UA) Normal Urine Ketones 15 H Urine Occult Blood 25 H Urine Nitrite Negative Urine Bilirubin 1 H Urine Urobilinogen 1 H Ur Leukocyte Esterase 100 H Urine RBC 0-5 SEEN Urine WBC 10-25 SEEN Ur Squamous Epith Cells 5-10 SEEN Calcium Oxalate Crystal 1+ Urine Bacteria RARE Urine Mucus RARE Discharge Plan Triage Chief Complaint: Nausea/Vomiting/Diarrhea ED Provider: Mikhail Benson Dx/Rx/DC Orders Instructions: Coronavirus Disease 2019 (COVID-19): Caring for Yourself or Others Prescriptions: New ondansetron 4 mg tablet,disintegrating 4 mg PO Q8H PRN PRN (Reason: Nausea) Qty: 20 0RF No Action aspirin [Adult Low Dose Aspirin] 81 mg tablet,delayed release (DR/EC) 81 mg PO QDAY PRN furosemide [Lasix] 40 mg tablet 40 mg PO .PRN PRN (Reason: edema shortness of breath) Qty: 90 3RF acetaminophen 500 mg capsule 1,000 mg PO ONCE carvedilol [Coreg] 25 mg tablet 25 mg PO BID Qty: 180 3RF lisinopril 10 mg tablet 10 mg PO QDAY Qty: 90 3RF methylprednisolone [Medrol (Dipak)] 4 mg tablets,dose pack See Rx Instructions PO PER PKG DIR Qty: 21 0RF Rx Instructions: PO PER PKG DIR amoxicillin-pot clavulanate 875-125 mg tablet 1 tab PO BID Qty: 20 0RF Primary Care Provider: Abraham Bahena Referrals: Abraham Bahena MD [Primary Care Provider] - Disposition Disposition: Home, Self Care
[2023-11-22] MEDS: Ondansetron 4 MG/2 ML Vial IV (19:05)
[2023-11-22] MEDS: 0.9% Normal Saline (1000mL) 1,000 ML 999 ML IV (19:05)
[2023-11-22] MEDS: Ketorolac 15 MG/ML Vial IV (19:05)
[2023-11-22 19:21] VITALS: BP 124/91; PULSE 73; RESP 16; TEMP 35.9; O2SAT 99
[2023-11-22 21:00] VITALS: BP 144/66; PULSE 90; RESP 16; O2SAT 98
== END 2023-11-22 22:02 | disposition home or self-care (01) ==
PROVIDERS: Emergency Provider Student in an Organized Health Care Education/Training Program; PCP Family Medicine; Visit Provider Student in an Organized Health Care Education/Training Program
DX: U07.1 COVID-19 (principal); F17.210 Nicotine dependence, cigarettes, uncomplicated; N39.0 Urinary tract infection, site not specified; R11.2 Nausea with vomiting, unspecified
CPT/HCPCS: 80048; 81001; 85027; 87631; 96361; 96374; 96375; 99283; J7030; A4216; J2405

== ENCOUNTER → 2024-03-20 | Outpatient (CLI) | payer MEDICARE, OTHER, SELFPAY ==
[2024-03-20 15:17] LABS: Absolute Neutrophil Count 4.1 X10^3/uL (2.0-7.7); Basophil# 0.03 X10^3/uL; Basophil% 0.4 % (0-1); Eosinophil# 0.14 X10^3/uL; Eosinophils% 2.1 % (0-5); Hematocrit 38.7 % (37-47); Hemoglobin 12.3 g/dL (12.0-15.0); Lymphocyte % 28.2 % (19-41); Mean Corp Hgb Conc 31.8 g/dL (32-36); Mean Corpuscular Hgb 30.2 pg (27.0-32.0); Mean Corpuscular Volume 95.1 fL (81-99); Mean Platelet Vol. 10.4 fl (6.2-12.0); Monocyte# 0.49 X10^3/uL; Monocyte% 7.3 % (0-10); NRBC Flagged by Analyzer 0 % (0-5); Neutrophil # 4.14 X10^3/uL (2.7-7.7); Neutrophil % 61.6 % (47-70); Platelet Count 218 K/mm3 (150-450); RBC Distribution Width CV 12.4 % (11.6-14.6); RBC Distribution Width SD 43.6 fl (35.1-43.9); Red Blood Count 4.07 M/mm3 (4.2-5.4); White Blood Count 6.7 K/mm3 (4.4-11.0)
[2024-03-20 15:29] LABS: Vitamin D,25 Hydroxy 22.5 ng/mL
[2024-03-20 15:33] LABS: AST(SGOT) 17 U/L (15-37); Alanine Aminotransfer ALT/SGPT 15 U/L (13-56); Albumin, Serum 3.4 g/dL (3.2-5.0); Alkaline Phosphatase 85 U/L (45-117); Anion Gap 2 (5-15); BUN 12 mg/dL (7-18); BUN/Creat Ratio 15.7 RATIO (10-20); Calcium,Total 9.2 mg/dL (8.5-10.1); Chloride 108 mmol/L (98-107); Cholesterol 239 mg/dL (200); Creatinine, Serum 0.76 mg/dL (0.55-1.02); EST Glomerular Filtration Rate 79 mL/min (>60); Est Glom Filt Rate - Afr Amer 95 mL/min (>60); Globulin 3.5 g/dL (2.2-4.2); Glucose 88 mg/dL (74-106); High Density Lipoprotein 73 mg/dL; Potassium 3.6 mmol/L (3.5-5.1); Protein, Total 6.9 g/dL (6.4-8.2); Sodium Level 140 mmol/L (136-145); T4 Free Direct 0.89 ng/dL (0.76-1.46); Thyroid Stim Hormone (TSH) 0.04 uIU/mL (0.358-3.74); Triglycerides 197 mg/dL; Very Low Density Lipoprotein 39 mg/dL (5-40)
[2024-03-24 15:07] LABS: Thyroglobulin Antibody < 1.0 IU/mL (0.0-0.9); Thyroid Peroxidase AB < 9 IU/mL (0-34); Thyroid Stim Immunoglob <0.10 IU/L (0.00-0.55)
== END | disposition home or self-care (01) ==
LOC: MFPLAB 13:31
PROVIDERS: PCP Family Medicine; Visit Provider Family Medicine
DX: M81.0 Age-related osteoporosis without current pathological fracture (principal); E05.90 Thyrotoxicosis, unspecified without thyrotoxic crisis or storm; E78.5 Hyperlipidemia, unspecified; I25.10 Atherosclerotic heart disease of native coronary artery without angina pectoris
CPT/HCPCS: 36415; 80053; 80061; 82306; 84439; 84443; 84445; 85025; 86376; 86800

== ENCOUNTER → 2024-03-26 | Outpatient (CLI) | payer MEDICARE, OTHER, SELFPAY ==
--- NOTE | 2024-03-26 09:32 | ECHOD_ITS ---
Reason For Study: Dilated CMP Procedure This was a 2D Doppler, Color Flow transthoracic echocardiogram. Myocardial strain analysis was performed in this exam to aid in the assessment of cardiac function. Exam performed in department. Left Ventricle Moderately dilated left ventricle. The left ventricular ejection fraction is 20 %. There is severe global hypokinesis of the left ventricle. Right Ventricle Normal RV size. ICD or pacer leads identified within the right ventricle. Normal systolic function. Atria Normal left atrium. Normal right atrium. Mitral Valve Normal mitral valve. Tricuspid Valve Normal tricuspid valve. Mild (1+) tricuspid valve insufficiency. Pulmonary artery systolic pressure is 26 mmHg. Aortic Valve Normal aortic valve. Pulmonic Valve Normal pulmonic valve. Great Vessels Normal aortic root. The pulmonary artery is normal size. Normal inferior vena cava. Pericardium/Pleural No pericardial effusion. MMode/2D Measurements & Calculations LVIDd: 6.7 cm IVSd: 0.85 cm Ao root diam: 3.5 cm LVIDs: 6.5 cm LVPWd: 0.96 cm LA dimension: 4.2 cm RVDd: 3.2 cm FS: 3.3 % LAV(MOD-bp): 50.9 ml LVAd ap4: 38.1 cm2 LVAd ap2: 35.0 cm2 LAV(MOD-bp) Indexed: 33.6 ml/m2 LVLd ap4: 8.4 cm LVLd ap2: 8.2 cm LAV(MOD-sp2): 53.1 ml EDV(MOD-sp4): 153.8 ml EDV(MOD-sp2): 127.3 ml LAV(MOD-sp4): 41.5 ml EDV(sp4-el): 147.3 ml EDV(sp2-el): 126.2 ml LVAs ap4: 31.9 cm2 LVAs ap2: 28.0 cm2 LVLs ap4: 7.8 cm LVLs ap2: 7.4 cm ESV(MOD-sp4): 118.7 ml ESV(MOD-sp2): 93.3 ml ESV(sp4-el): 111.0 ml ESV(sp2-el): 89.2 ml EF(MOD-sp4): 22.8 % EF(MOD-sp2): 26.7 % EF(sp4-el): 24.6 % SV(MOD-sp4): 35.1 ml SV(MOD-sp2): 34.0 ml SV(sp4-el): 36.2 ml TAPSE: 1.2 cm LA A4 area: 16.4 cm2 RA A4 area: 9.7 cm2 Time Measurements MV dec time: 0.20 sec Doppler Measurements & Calculations MV E max moo: 48.9 cm/sec Lat Peak E' Moo: 2.8 cm/sec Med Peak E' Moo: 2.4 cm/sec MV A max moo: 93.6 cm/sec E/E' lat: 17.3 E/E' med: 20.0 MV E/A: 0.52 MV V2 max: 132.6 cm/sec MV P1/2t max moo: 66.3 cm/sec Ao V2 max: 115.6 cm/sec MV max P.0 mmHg MV P1/2t: 77.1 msec Ao max P.4 mmHg MV V2 mean: 63.7 cm/sec MV dec slope: 251.8 cm/sec2 Ao V2 mean: 80.7 cm/sec MV mean P.0 mmHg Ao mean P.0 mmHg MV V2 VTI: 28.3 cm MVA(P1/2t): 2.9 cm2 Ao V2 VTI: 25.6 cm AV (velocity ratio): 0.73 LV V1 max: 81.2 cm/sec MR max moo: 516.5 cm/sec PA V2 max: 73.8 cm/sec LV V1 max P.6 mmHg MR max P.7 mmHg PA V2 mean: 53.0 cm/sec LV V1 mean P.4 mmHg MR mean moo: 360.6 cm/sec LV V1 mean: 53.4 cm/sec MR mean P.4 mmHg LV V1 VTI: 18.7 cm MR VTI: 202.8 cm TR max moo: 239.6 cm/sec TR max P.0 mmHg ECHO/Echo Complete Interpretation Summary The left ventricular ejection fraction is 20 %. Moderately dilated left ventricle. The global longitudinal strain is severely abnormal. The global longitudinal st rain = -8.6% (abnormal). Compared to previous study, the left ventricular systolic function is the same.. Ordering Physician: Quentin Baez Referring Physician: Quentin Baez Performed By: Kb Cespedes RCS
== END | disposition home or self-care (01) ==
LOC: CVS 09:30
PROVIDERS: PCP Family Medicine; Referring Provider Internal Medicine Cardiovascular Disease; Visit Provider Internal Medicine Cardiovascular Disease
DX: I45.6 Pre-excitation syndrome (principal)
CPT/HCPCS: 93306

== ENCOUNTER → 2024-10-14 | Outpatient (CLI) | payer MEDICARE, OTHER, SELFPAY ==
--- NOTE | 2024-10-14 12:10 | CT_ITS ---
STUDY: LOW DOSE CT LUNG CANCER SCREENING REASON FOR EXAM: Female, 74 years old. current smoker, 1ppd x 56 years RADIATION DOSAGE (If Supplied By Facility): CTDIvol = ( 2.01 ) mGy, DLP = ( 64.94 ) mGycm TECHNIQUE: No contrast was administered. Low dose technique was utilized (average mAS-38 and kVp 120). 1.25 mm axial source images with a slice interval of 1.25-mm were reconstructed in lung windows. 2.5 mm axial source images with a slice interval of 2.5-mm were reconstructed in lung windows. 5.0 mm axial source images with a slice interval of 5.0-mm were reconstructed in soft tissue windows. COMPARISON: None. FINDINGS: Lung windows show underlying emphysema with bleb formation in both lung macias. There are chronic interstitial changes with evidence of chronic bronchitis. No organized infiltrate or effusion. There is a suspicious spiculated noncalcified 1.5 x 1.9cm nodule in the right lower lobe on axial image 107. This needs further evaluation with PET/CT. There are some other ground glass densities in the right lower lobe as well. Soft tissue windows show a low density 1cm right thyroid lobe nodule that should be evaluated with ultrasound. No suspicious adenopathy. Peripheral calcifications noted in the thoracic aorta. There are calcified coronary vessels. Pacer leads seen along the base of the heart. Bony structures show degenerative change. Limited cuts of the upper abdomen do not show a suspicious abnormality CT/Low Dose CT Lung Screening IMPRESSION: Lung-RADS category 4B - Chest CT with or without contrast, PET/CT and/or tissue sampling can be obtained depending on the probability of malignancy and comorbidities. IMPORTANT NOTES FOR USE: ACR Lung-RADS Version 1.1 Assessment Categories Release Date: 2018 Category: Coded 0-4 bases on nodule(s) with highest degree of suspicion. Negative screen is defined as categories 1 and 2; a positive screen is defined as categories 3 and 4. Category 3 and 4A nodules that are unchanged on interval CT should be coded as category 2, and individuals returned to screening in 12 months. Category 4X: Category 3 or 4 nodules with additional imaging findings that increase the suspicion of lung cancer, such as spiculation, GGN that doubles in size in 1 year, enlarged lymph notes, etc. Category Modifiers: S (significant finding unrelated to lung cancer) Electronically Signed: Maurice Red MD at 10:27 EST ,
== END | disposition home or self-care (01) ==
LOC: CT 12:10
PROVIDERS: PCP Family Medicine; Referring Provider Family Medicine; Visit Provider Family Medicine
DX: R06.02 Shortness of breath (principal); F17.210 Nicotine dependence, cigarettes, uncomplicated
CPT/HCPCS: 71271; 94060; 94726; 94729

== ENCOUNTER → 2024-10-14 | Outpatient (CLI) | payer MEDICARE, OTHER, SELFPAY ==
[2024-10-12 12:31] LABS: Bacteria 0 SEEN /hpf (None Seen); Mucous, Urine 0 SEEN /hpf (<or=2+); Red Blood Cells-Urine 0 SEEN /hpf (0-5); White Blood Cells 0 SEEN /hpf (0-5)
[2024-10-12 12:41] LABS: Color, Urine Yellow (Yellow); Glucose, Dipstick Normal (Normal); Ketone-Dipstick Negative (Negative); Leukocyte Esterase-Dipstick Negative /ul (Negative); Nitrite-Dipstick Negative (Negative); Occult Blood-Urine 10 /ul (Negative); Protein-Dipstick Negative (Negative); Urine Bilirubin Dipstick Negative (Negative); Urine Clarity Clear (Clear); Urine Urobilinogen Normal (Normal)
[2024-10-12 12:46] LABS: Squamous Epithelial Cells - UA 0-5 SEEN /hpf (5-10)
== END | disposition home or self-care (01) ==
LOC: LABSPEC 07:11
PROVIDERS: PCP Family Medicine; Visit Provider Physician Assistant
DX: N39.0 Urinary tract infection, site not specified (principal)
CPT/HCPCS: 81001; 87086

== ENCOUNTER → 2024-10-22 | Outpatient (CLI) | payer MEDICARE, OTHER, SELFPAY | END | disposition home or self-care (01) | PROVIDERS: PCP Family Medicine; Referring Provider Family Medicine; Visit Provider Family Medicine | DX: R91.8 Other nonspecific abnormal finding of lung field (principal) | CPT/HCPCS: 78815; A9552 ==

== ENCOUNTER 2024-12-19 08:06 | Day surgery (SDC) | payer MEDICARE, OTHER, SELFPAY ==
[2024-12-12 12:49] LABS: Mucous, Urine 0 SEEN /hpf (<or=2+); Red Blood Cells-Urine 0 SEEN /hpf (0-5)
[2024-12-12 13:05] LABS: Hemoglobin 12.3 g/dL (12.0-15.0); Mean Corp Hgb Conc 32.4 g/dL (32-36); Mean Corpuscular Hgb 30.6 pg (27.0-32.0); Mean Corpuscular Volume 94.5 fL (81-99); Platelet Count 223 K/mm3 (150-450); RBC Distribution Width CV 11.9 % (11.6-14.6); RBC Distribution Width SD 41.7 fl (35.1-43.9); Red Blood Count 4.02 M/mm3 (4.2-5.4); White Blood Count 7.1 K/mm3 (4.4-11.0)
[2024-12-12 13:08] LABS: Color, Urine Yellow (Yellow); Glucose, Dipstick Normal (Normal); Ketone-Dipstick 5 mg/dl (Negative); Leukocyte Esterase-Dipstick 25 /ul (Negative); Nitrite-Dipstick Negative (Negative); Occult Blood-Urine 25 /ul (Negative); Protein-Dipstick 15 mg/dl (Negative); Specific Gravity, Urine 1.025 (1.002-1.030); Urine Clarity Clear (Clear); Urine Urobilinogen 4 mg/dl (Normal)
[2024-12-12 13:12] LABS: Urine Bilirubin Dipstick 1 mg/dL (Negative)
[2024-12-12 13:25] LABS: Bacteria RARE /hpf (None Seen); Squamous Epithelial Cells - UA 10-25 SEEN /hpf (5-10); White Blood Cells 0-5 SEEN /hpf (0-5)
[2024-12-12 13:26] LABS: Calcium Oxalate Crystals Ur 1+ /hpf (<or=2+); Fine Granular Cast- Urine 0-5 SEEN /lpf (0-5)
[2024-12-12 13:30] LABS: Anion Gap 4 (5-15); BUN 18 mg/dL (7-18); BUN/Creat Ratio 22.7 RATIO (10-20); Calcium,Total 9.1 mg/dL (8.5-10.1); Chloride 105 mmol/L (98-107); Creatinine, Serum 0.79 mg/dL (0.55-1.02); EST Glomerular Filtration Rate 75 mL/min (>60); Est Glom Filt Rate - Afr Amer 91 mL/min (>60); Glucose 99 mg/dL (74-106); Potassium 3.9 mmol/L (3.5-5.1); Sodium Level 138 mmol/L (136-145)
[2024-12-18 09:10] VITALS: BMI 19.0
--- NOTE | 2024-12-19 11:20 | EX.DEFIBPROC ---
Defibrillator Procedure Note Defibrillator Procedure Note Chantel English is a 74 year old female who has a past medical history of an NICM s/p single chamber ICD, who presented to the [place] EP lab for further evaluation regarding an ICD generator changeout. The patient was brought to the electrophysiology laboratory in a fasting state. Sedation provided by nuring staff. The left shoulder area was prepped and draped in the usual manner and the skin and subcutaneous tissues below the left clavicle were infiltrated with 1% lidocaine for local anesthesia. The skin was sharply incised. Electrocautery and blunt dissection were carried out to the level of the pulse generator. The leads were disconnected from the existing generator, and it was removed. A pin pulg was placed in the SVC port of the new generator. The generator was attached to the leads. The device was noted to function appropriately. The pocket was noted to have an absence of active bleeding. The pulse generator was placed in the pocket. The pocket was then irrigated with antibiotic solution. The incision was closed with two layers of 2-0 Vicryl and a subcuticular closure of 4-0 Vicryl. The incision was dressed. Conclusions Successfu ICD generator changeout with adequate pacing threshold, sensing and lead impedance. Recommendations 1. Routine follow-up in the device clinic. 2. Remove outer dressing after 48 hours. Leave steri-strips intact for 7-10 days, then remove if it does not fall off by itself. 3. Device follow up as scheduled. 4. Hold anticoagulation for 24 hours (No heparin IV or NOAC, ok to continue warfarin). 5. The patient can continue to follow-up with Dr. Baez.
== END 2024-12-19 12:10 | disposition home or self-care (01) ==
PROVIDERS: Internal Medicine Cardiovascular Disease; PCP Family Medicine; Referring Provider Internal Medicine; Visit Provider Internal Medicine
DX: Z45.02 Encounter for adjustment and management of automatic implantable cardiac defibrillator (principal); I50.22 Chronic systolic (congestive) heart failure; I47.20 Ventricular tachycardia, unspecified; I42.8 Other cardiomyopathies; F17.210 Nicotine dependence, cigarettes, uncomplicated
CPT/HCPCS: 33262; 80048; 81001; 85027; 93641; 99152; 99153

== ENCOUNTER → 2025-01-01 | Outpatient (CLI) | payer MEDICARE, OTHER, SELFPAY | END | disposition home or self-care (01) | LOC: LABSPEC 11:16 | PROVIDERS: PCP Family Medicine; Referring Provider Physician Assistant; Visit Provider Physician Assistant | DX: R30.0 Dysuria (principal) | CPT/HCPCS: 87077; 87086; 87088; 87186 ==

== ENCOUNTER 2025-04-29 11:11 | Outpatient (CLI) | payer MEDICARE, OTHER, SELFPAY ==
[2025-04-29 12:20] LABS: Absolute Lymphocyte Count 2.14 X10^3/uL (0.83-4.51); Absolute Neutrophil Count 4.3 X10^3/uL (2.0-7.7); Basophil# 0.04 X10^3/uL; Basophil% 0.5 % (0-1); Eosinophils% 2.7 % (0-5); Hematocrit 39.7 % (37-47); Hemoglobin 13.3 g/dL (12.0-15.0); Lymphocyte # 2.14 X10^3/ul (0.83-4.51); Lymphocyte % 29.4 % (19-41); Mean Corp Hgb Conc 33.5 g/dL (32-36); Mean Corpuscular Hgb 31.4 pg (27.0-32.0); Mean Corpuscular Volume 93.9 fL (81-99); Mean Platelet Vol. 10.6 fl (6.2-12.0); Monocyte# 0.62 X10^3/uL; Monocyte% 8.5 % (0-10); NRBC Flagged by Analyzer 0 % (0-5); Neutrophil # 4.26 X10^3/uL (2.7-7.7); Neutrophil % 58.5 % (47-70); Platelet Count 228 K/mm3 (150-450); RBC Distribution Width CV 11.9 % (11.6-14.6); RBC Distribution Width SD 41.4 fl (35.1-43.9); Red Blood Count 4.23 M/mm3 (4.2-5.4); White Blood Count 7.3 K/mm3 (4.4-11.0)
[2025-04-29 12:45] LABS: ALB/GLOB Ratio 1.4 RATIO (0.9-2.4); AST(SGOT) 22 U/L (<=31); Alanine Aminotransfer ALT/SGPT 8 U/L (<=34); Albumin, Serum 4.3 g/dL (3.4-4.8); Alkaline Phosphatase 81 U/L (35-104); Anion Gap 12 (5-15); BUN 14 mg/dL (4-19); Calcium,Total 9.7 mg/dL (7.6-11.0); Carbon Dioxide 23.5 mmol/L (21.0-32.0); Chloride 102 mmol/L (98-108); Cholesterol 270 mg/dL (<=200); Creatinine, Serum 0.76 mg/dL (0.70-1.20); EST Glomerular Filtration Rate 82 (>60); Glucose 88 mg/dL (70-99); High Density Lipoprotein 55 mg/dL; Low Density Lipoprotein Calc. 158 mg/dL; Potassium 4.3 mmol/L (3.3-5.1); Protein, Total 7.3 g/dL (5.9-8.4); Sodium Level 138 mmol/L (133-145); Thyroid Stim Hormone (TSH) 0.034 uIU/mL (0.300-4.200); Triglycerides 286 mg/dL; Very Low Density Lipoprotein 57 mg/dL (5-40); Vitamin D,25 Hydroxy 22.1 ng/mL (30-100); cholesterol:hdl ratio screen 4.93
== END 2025-04-29 23:59 | disposition home or self-care (01) ==
LOC: MFPLAB 11:12
PROVIDERS: PCP Family Medicine; Referring Provider Family Medicine; Visit Provider Family Medicine
DX: I25.10 Atherosclerotic heart disease of native coronary artery without angina pectoris (principal); E05.90 Thyrotoxicosis, unspecified without thyrotoxic crisis or storm; E55.9 Vitamin D deficiency, unspecified
CPT/HCPCS: 36415; 80053; 80061; 82306; 84439; 84443; 85025

== ENCOUNTER → 2025-06-28 | Outpatient (CLI) | payer MEDICARE, OTHER, SELFPAY | END | disposition home or self-care (01) | LOC: LABSPEC 06-30 08:27 | PROVIDERS: PCP Family Medicine; Visit Provider Nurse Practitioner Family | DX: R82.90 Unspecified abnormal findings in urine (principal) | CPT/HCPCS: 87086; 87088 ==

== ENCOUNTER → 2025-07-19 | Outpatient (CLI) | payer MEDICARE, OTHER, SELFPAY ==
--- NOTE | 2025-07-19 09:10 | CT_ITS ---
PROCEDURE: CHEST WITHOUT CONTRAST 07/19/2025 REASON FOR EXAM: NODULE TECHNIQUE: Chest CT without contrast. Coronal and Sagittal reconstruction series were provided. One or more dose reduction techniques were used (e.g., Automated exposure control, adjustment of the mA and/or kV according to patient size, use of iterative reconstruction technique RADIATION DOSE SUMMARY: CTDlvol: 6.45 mGy DLP: 232.15 mGycm COMPARISON: CT chest without contrast, 10/14/2024. FINDINGS: PULMONARY NODULES: (Only nodules >3mm are reported) Lower neck:There are multiple low-density nodules in both thyroid lobes. There is no supraclavicular lymphadenopathy. Mediastinum:No abnormal masses or lymphadenopathy. Heart and Vasculature:The heart size is normal. There is no pericardial effusion. There is calcific vascular disease of the thoracic aorta and coronary arteries. There are pacemaker leads in both right cardiac chambers. Esophagus:Normal. Upper Abdomen:There is calcific vascular disease of the visualized abdominal aorta. There is cholelithiasis. There is a 2.2 x 1.4 cm low-density nodule in the right adrenal gland consistent with an adenoma. Chest wall:There is a pacemaker generator in the left upper chest wall. There is no axillary lymphadenopathy. There is multilevel degenerative disc disease of the lower thoracic and upper lumbar spine, most severe at the L2-3 level. There is moderate dextroscoliosis of the thoracic spine and moderate levoscoliosis of the lumbar spine. Lungs, airways and pleura: There is moderate upper lobe predominant emphysema, primarily centrilobular but with areas of paraseptal emphysema. There is pleural-parenchymal scarring in both lung apices. There is a stable 19 mm in diameter ground-glass opacity nodule in the lower lobe of the left lung. There is an adjacent, stable, 19 mm in diameter ground-glass opacity in the lower lobe of the left lung. There are no new pulmonary nodules. There are no pleural effusions. CT/Chest without Contrast IMPRESSION: 1. Stable ground-glass opacity nodules in the lower lobe of the left lung. 2. There are no new pulmonary nodules. 3. Emphysema. 4. Calcific vascular disease. 5. Other findings as noted. Recommendation: Follow up low-dose chest CT in 12 months. Reading Location: [facility]
--- OUTSIDE RECORDS SUMMARY | 2025-07-19 09:13 | XMS RPT_ITS | CCD ---
Author Organization [facility] Care Team Providers Care Restaurant Service Manager Name Role Phone Dr. Abraham Bahena Primary Care Provider Dr. Abraham Bahena Referring Provider [phone] Quentin Baez Attending Provider Dr. Abraham Bahena Primary Care Provider [phone] Dr. Abraham Bahena Referring Provider AYANA Soler Attending Provider [phone] AYANA Valdez Attending Provider Dr. Abraham Bahena Primary Care Provider Dr. Abraham Bahena Referring Provider Bea Gresham Attending Provider Unavailable Dr. Quentin Baez Attending Provider Dr. Abraham Bahena MD Primary Care Provider Dr. Quentin Baez MD Attending Provider [phone] Abraham Bahena MD Referring Provider [phone] Bea Gresham Attending Provider Unavailable Abraham Vasquez Attending Provider Dr. Abraham Bahena MD Attending Provider [phone] Mikael Valdez Attending Provider [phone] Ania Lewis Attending Provider Dr. Abraham Bahena MD Primary Care Provider Dr. Abraham Bahena MD Referring Provider [phone] Abraham Bahena Primary Care Unavailable Sasha, Jay Attending Unavailable SchAbraham cervantes E Primary Care Unavailable SchAbraham cervantes Referring Unavailable Roof SALES ENGINEER ACCOUNT MANAGERAbraham Attending Unavailable SchAbraham cervantes Primary Care Unavailable Bea Gresham Attending Unavailable SchAbraham cervantes Referring Unavailable SchAbraham cervantes E Primary Care Unavailable Sasha, Quentin Attending Unavailable Sibilia, Gigi V Referring Unavailable Sibilia Gigi V Attending Unavailable SchinAbraham last E Primary Care Unavailable SchAbraham cervantes E Primary Care Unavailable Mikael Valdez Referring Unavailable Mikael Valdez Attending Unavailable Carlotta, Messi Referring Unavailable Carlotta Messi Attending Unavailable Carlotta, Messi Consulting Unavailable SchAbraham cervantes E Primary Care Unavailable SchAbraham cervantes Referring Unavailable SchAbraham cervantes Primary Care Unavailable Ania Madrid Attending Unavailable SchAbraham cervantes Referring Unavailable SchAbraham cervantes Primary Care Unavailable Mikael Valdez Attending Unavailable Abraham Bahena Primary Care Unavailable Sasha, Quentin Referring Unavailable SashaQuentin cannon Attending Unavailable Abraham Bahena E Referring Unavailable Connie GUO, Abraham Grace Attending Unavailable SchAbraham cervantes Primary Care Unavailable SchAbraham cervantes Referring Unavailable SchAbraham cervantes Primary Care Unavailable Mikael Valdez Attending Unavailable Arley Boyce Attending Unavailable SchAbraham cervantes Primary Care Unavailable SchAbraham cervantes Referring Unavailable SchAbraham cervantes Primary Care Unavailable SchAbraham cervantes Referring Unavailable SchAbraham cervantes Attending Unavailable Arley Boyce Attending Unavailable Abraham Bahena Primary Care Unavailable Carlotta, Messi Referring Unavailable Carlotta, Messi Attending Unavailable SchAbraham cervantes E Primary Care Unavailable SchAbraham cervantes Primary Care Unavailable SchAbraham cervantes Referring Unavailable Sasha, Jay Attending Unavailable Roof SALES ENGINEER ACCOUNT MANAGERAbraham Attending Unavailable SchAbraham cervantes Primary Care Unavailable SchAbraham cervantes E Referring Unavailable SchAbraham cervantes E Primary Care Unavailable Sasha, Jay Attending Unavailable SchAbraham cervantes E Referring Unavailable SchAbraham cervantes E Primary Care Unavailable SchAbraham cervantes Attending Unavailable SchAbraham cervantes E Primary Care Unavailable Ania Madrid Attending Unavailable Abraham Bahena Primary Care Unavailable SchAbraham cervantes Referring Unavailable SchAbraham cervantes Attending Unavailable Schmanuelner, Abraham E Primary Care Unavailable Sasha, Jay Referring Unavailable Sasha, Jay Attending Unavailable Abraham Bahena Primary Care Unavailable Abraham Bahena Referring Unavailable Mikael Valdez Attending Unavailable Abraham Bahena Primary Care Unavailable Sasha, Jay Attending Unavailable Abraham Bahena Primary Care Unavailable Sasha, Quentin Referring Unavailable Sasha, Quentin Attending Unavailable Juarez Yates Attending Unavailable Abraham Bahena Primary Care Unavailable Abraham Bahena Referring Unavailable Allergies Allergy Classification Reported Allergen(s) Allergy Type Date of Onset Reaction(s) Facility (8 sources) Vancomycin Drug Allergy 1 itchy scalp cobweb on face [facility] (1 source) Vancomycin Drug Allergy 5 [facility] Repository Medications Current Medications Medication Drug Class(es) Dates Sig (Normalized) Sig (Original) acetaminophen 500 mg oral capsule (10 sources) Start: 12-12-2024 take 2 capsules by mouth every six hours as needed for pain Acetaminophen 500 mg capsule Active 1000 mg PO EVERY 6 HOURS as needed for pain December 12, 2024 2:46pm Start: 06-29-2022 End: 12-12-2024 take 2 capsules by mouth once Acetaminophen 500 mg cap araceli Discontinued 1000 mg PO ONCE June 29, 2022 12:00am December 12, 2024 2:47pm Start: 06-29-2022 take 1000 mg by mouth once Musa taminophen Active 1000 MG PO ONCE June 29, 2022 12:00am Mfanahdovsb-Krvzzevan-Wpsxkl er (4 sources) Anticholinergic, Corticosteroid, beta2-Adrenergic Agonist Start: 03-03-2025 Djhbsmcndvl-Negmupeyb-Npwjlp er (Trelegy Ellipta) 100-62.5-25 mcg blister with device Active 1 NMA INHALATION daily March 03, 2025 12:00am Completed/Discontinued Medications Medication Drug Class(es) Dates Sig (Normalized) Sig (Original) amiodarone hydrochloride 100 mg oral tablet (8 sources) Antiarrhythmic Start: 12-12-2019 End: 12-18-2019 take 1 tablet by mouth once daily Amiodarone 100 mg tablet Discontinued 100 mg PO DAILY 90 6 December 12, 2019 1:00am December 18, 2019 8:31pm amoxicillin 500 mg oral capsule (3 sources) Penicillin-class Antibacterial Start: 05-13-2025 End: 06-28-2025 take 1 capsule by mouth three times daily Amoxicillin 500 mg capsule Discontinued 500 mg PO THREE TIMES A DAY 30 0 May 13, 2025 12:00am June 28, 2025 10:08am amoxicillin 875 mg / clavulanate 125 mg oral tablet (16 sources) Penicillin-class Antibacterial Start: 06-28-2025 End: 07-03-2025 Amoxicillin-Pot Clavulanate 875-125 mg tablet Discontinued 1 {tbl} PO TWICE A DAY 10 5 0 June 28, 2025 12:00am July 02, 2025 12:00am July 03, 2025 12:08am Start: 09-11-2024 End: 10-12-2024 Amoxicillin-Pot Clavulanate 875-125 mg tablet Discontinued 1 {tbl} PO TWICE A DAY 20 0 September 11, 2024 12:00am October 12, 2024 10:37am Start: 04-29-2024 End: 05-06-2024 Amoxicillin-Pot Clavulanate 875-125 mg tablet Discontinued 1 {tbl} PO TWICE A DAY 14 7 0 April 29, 2024 11:28am May 05, 2024 12:00am May 06, 2024 12:06am Start: 10-17-2023 End: 02-29-2024 Amoxicillin-Pot Clavulanate 875-125 mg tablet Discontinued 1 {tbl} PO TWICE A DAY 20 0 October 17, 2023 1:00am February 29, 2024 2:52pm Start: 10-17-2023 End: 02-29-2024 take 1 tablet by mouth twice daily Amoxicillin-Pot Clavulanate Discontinued 1 TABLET PO TWICE A DAY October 17, 2023 1:00am February 29, 2024 2:52pm aspirin 81 mg delayed release oral tablet (18 sources) Platelet Aggregation Inhibitor, Nonsteroidal Anti-inflammatory Drug Start: 12-12-2017 End: 12-12-2024 Aspirin (Adult Low Dose Aspirin) 81 mg tablet,delayed release (DR/EC) Discontinued 81 mg PO daily as needed June 29, 2022 1:19pm December 12, 2024 2:47pm carvedilol 25 mg oral tablet (20 sources) alpha-Adrenergic Kyrie, beta-Adrenergic Kyrie Start: 07-28-2021 End: 07-28-2021 take 2 tablets by mouth once Carvedilol (Coreg) 25 mg tablet Discontinued 50 mg PO ONCE 180 3 July 28, 2021 2:18pm July 28, 2021 2:20pm Start: 11-06-2017 End: 03-03-2025 take 1 tablet by mouth twice daily Carvedilol (Coreg) 25 mg tablet Discontinued 25 mg PO TWICE A DAY 180 March 19, 2024 9:22am September 02, 2024 10:11am cefdinir 300 mg oral capsule (4 sources) Cephalosporin Antibacterial Start: 10-12-2024 End: 12-12-2024 take 1 capsule by mouth twice daily Cefdinir 300 mg capsule Discontinued 300 mg PO TWICE A DAY 14 October 12, 2024 1:00am December 12, 2024 2:47pm dapagliflozin 10 mg oral tablet (6 sources) Sodium-Glucose Cotransporter 2 Inhibitor Start: 06-29-2022 End: 01-02-2023 take 1 tablet by mouth once daily Dapagliflozin Propanediol (Farxiga) 10 mg tablet Discontinued 10 mg PO DAILY 90 June 29, 2022 12:00am January 02, 2023 10:07am furosemide 40 mg oral tablet (20 sources) Loop Diuretic Start: 07-31-2018 End: 07-28-2021 take 1 tablet by mouth once daily as needed for edema Furosemide (Lasix) 40 mg tablet Discontinued 40 mg PO DAILY as needed for edema shortness of breath 90 December 12, 2019 4:38pm July 28, 2021 2:23pm lisinopril 10 mg oral tablet (20 sources) Angiotensin Converting Enzyme Inhibitor Start: 03-19-2024 End: 03-03-2025 take 1 tablet by mouth once daily Lisinopril 10 mg tablet Discontinued 10 mg PO DAILY 90 September 02, 2024 10:11am March 03, 2025 11:19am Changed back to Lisinopril per pt request. Start: 11-06-2017 End: 02-29-2024 take 1 tablet by mouth once daily Lisinopril 10 mg tablet Discontinued 10 mg PO daily 90 October 04, 2022 11:21am January 02, 2023 10:53am losartan potassium 50 mg oral tablet (5 sources) Angiotensin 2 Receptor Kyrie Start: 02-29-2024 End: 03-19-2024 take 1 tablet by mouth once daily Losartan 50 mg tablet Discontinued 50 mg PO DAILY 90 3 February 29, 2024 12:00am March 19, 2024 9:21am methylPREDNISolone 4 mg oral tablet (12 sources) Corticosteroid Start: 10-17-2023 End: 02-29-2024 take 1 tablet by mouth once Methylprednisolone (Medrol (Dipak)) 4 mg tablets,dose pack Discontinued 0 PO per package directions 21 0 October 17, 2023 1:00am February 29, 2024 2:52pm PO PER PKG DIR Start: 08-31-2023 End: 09-06-2023 take 1 tablet by mouth once Methylprednisolone (Medrol (Dipak)) 4 mg tablets,dose pack Discontinued 4 mg PO per package directions 21 6 0 August 31, 2023 12:00am September 05, 2023 12:00am September 06, 2023 12:04am nitrofurantoin, macrocrystals 25 mg / nitrofurantoin, monohydrate 75 mg oral capsule (16 sources) Nitrofuran Antibacterial Start: 01-01-2025 End: 01-06-2025 take 1 capsule by mouth every twelve hours at mealtime Nitrofurantoin Monohyd/M-Cryst (Macrobid) 100 mg capsule Discontinued 100 mg PO Q12H 10 5 0 January 01, 2025 1:00am January 05, 2025 1:00am January 06, 2025 1:15am must administer with a meal/food Start: 12-12-2024 End: 12-17-2024 take 1 capsule by mouth twice daily at mealtime Nitrofurantoin Monohyd/M-Cryst (Macrobid) 100 mg capsule Discontinued 100 mg PO TWICE A DAY 10 5 0 December 12, 2024 3:10pm December 16, 2024 1:00am December 17, 2024 1:12am must administer with a meal/food Start: 12-20-2018 End: 03-04-2019 take 1 capsule by mouth twice daily at mealtime Nitrofurantoin Monohyd/M-Cryst (Macrobid) 100 mg capsule Discontinued 100 mg PO TWICE A DAY 10 0 December 20, 2018 1:00am March 04, 2019 9:06am must administer with a meal/food Tiotropium-Olodaterol (4 sources) Anticholinergic, beta2-Adrenergic Agonist Start: 12-12-2024 End: 03-03-2025 Tiotropium-Olodaterol (Stiolto Respimat) 2.5-2.5 mcg/actuation mist Discontinued 2 NMA INHALATION daily December 12, 2024 1:00am March 03, 2025 11:00am ondansetron 4 mg disintegrating oral tablet (6 sources) Serotonin-3 Receptor Antagonist Start: 11-22-2023 End: 02-29-2024 take 1 tablet by mouth every eight hours as needed for nausea Ondansetron 4 mg tablet,disintegrating Discontinued 4 mg PO EVERY 8 HOURS NEEDED as needed for Nausea 20 0 November 22, 2023 1:00am February 29, 2024 2:52pm sulfamethoxazole 800 mg / trimethoprim 160 mg oral tablet (8 sources) Dihydrofolate Reductase Inhibitor Antibacterial, Sulfonamide Antimicrobial Start: 12-20-2018 End: 12-20-2018 Sulfamethoxazole-Trimet hoprim (Bactrim Ds) 800-160 mg tablet Discontinued 1 {tbl} PO Q12H 14 0 December 20, 2018 1:00am December 20, 2018 5:33pm Problems Active Problems Problem Classification Problem Date Documented Date Episodic/Chronic Abdominal pain (8 sources) Abdominal pain; Translations: [Unspecified abdominal pain] 12-26-2017 Episodic Cardiac dysrhythmias (18 sources) Nonsustained ventricular tachycardia ; Translations: [Ventricular tachycardia] Onset: 03-04-2025 12-09-2019 Chronic Comment on above: Monomorphic ventricu lar tachycardia Cardiac dysrhythmias (8 sources) Palpitations; Translations: [Palpitations] 06-27-2022 Episodic Conduction disorders (20 sources) Gdnxu-Qkvtlqmbn-Vwtaw pattern; Translations: [Pre-excitation syndrome] Onset: 07-28-2011 Chronic Comment on above: s/p RFA 2003 04/10/2006 and 07/28/20 11, 12/19/2024RV lead replacement 02/20/19 Congestive heart failure; nonhypertensive (14 sources) Chronic systolic heart failure; Translations: [Chronic systolic (congestive) heart failure] Onset: 12-12-2024 Chronic Coronary atherosclerosis and other heart disease (1 source) Atherosclerotic heart disease of [place] coronary artery without angina pectoris; Translations: [Atherosclerotic heart disease of [place] coronary artery without angina pectoris] Onset: 05-06-2025 Chronic Genitourinary symptoms and ill-defined conditions (4 sources) Dysuria; Translations: [Dysuria] Onset: 06-28-2025 06-28-2025 Episodic Other and unspecified benign neoplasm (8 sources) Lipoma of upper limb; Translations: [Benign lipomatous neoplasm of skin and subcutaneous tissue of unspecified limb] 06-27-2022 Episodic Other lower respiratory disease (8 sources) Dyspnea; Translations: [Shortness of breath] 06-27-2022 Episodic Other lower respiratory disease (1 source) Solitary pulmonary nodule; Translations: [Solitary pulmonary nodule] Onset: 07-09-2025 Episodic Other upper respiratory infections (7 sources) Acute sinusitis; Translations: [Acute sinusitis, unspecified] 08-31-2023 Episodic Halie-; endo-; and myocarditis; cardiomyopathy (except that caused by tuberculosis or sexually transmitted disease) (20 sources) Dilated cardiomyopathy; Translations: [Dilated cardiomyopathy] Onset: 01-06-2025 Chronic Residual codes; unclassified (8 sources) Family history of stroke; Translations: [Family history of stroke] 12-18-2018 Episodic Residual codes; unclassified (8 sources) FH: Hypertension; Translations: [Family history of ischemic heart disease and other diseases of the circulatory system] 12-18-2018 Episodic Spondylosis; intervertebral disc disorders; other back problems (8 sources) Back problem; Translations: [Dorsopathy, unspecified] 12-26-2017 Episodic Substance-related disorders (8 sources) Nicotine dependence; Translations: [Nicotine dependence, unspecified, uncomplicated] 06-08-2020 Chronic Thyroid disorders (8 sources) Disorder of thyroid gland; Translations: [Disorder of thyroid, unspecified] 06-27-2022 Episodic Past or Other Problems Problem Classification Problem Date Documented Da te Episodic/Chronic Other lower respiratory disease (1 source) Other nonspecific abnormal finding of lung field; Translations: [Other nonspecific abnormal finding of lung field] Onset: 11-17-2024 Episodic Other lower respiratory disease (1 source) Shortness of breath; Translations: [Shortness of breath] Onset: 11-12-2024 Episodic Urinary tract infections (6 sources) Acute pyelonephritis; Translations: [Acute pyelonephritis] Onset: 10-12-2024 10-12-2024 Episodic Results Test Name Value Interpretation Reference Range Facility Urine Cultureon 07-02-2025 URC Below infection leve l. GNR lactose professional development director [place] Count 1000-10,000 Normal [facility] Comment on above: Performed By: #### M 100.2200 #### [facility] [address] [place], [place], [id number] Urine cultureOrdered By: David Madrid on 06-30-2025 Bacteria identified Cx Nom (U) GNR lactose professional development director Abnormal [facility] - Chemistry and C hemistry - challengeOrdered By: Ania Madrid on 06-28-2025 Bilirubin Ql (U) Negative [facility] Glucose Ql (U) Negative [facility] Ketones Ql (U) Negative [facility] pH (U) 6.0 [pH] [facility] Specific gravity (U) [Rel density] 1.010 [facility] Urobilinogen (U) [Mass/Vol] Negative [facility] - Hematology and Cell countsOrdered By: Ania Madrid on 06-28-2025 Hemoglobin Ql (U) Negative [facility] - Specimen inform ationOrdered By: Ania Madrid on 06-28-2025 Clarity (U) Clear [facility] Color (U) Yellow [facility] - UrinalysisOrder ed By: Ania Madrid on 06-28-2025 Nitrite Ql (U) Negative [facility] Protein Ql (U) Trace [facility] No Panel InformationOrdered By: Ania Madrid on 06-28-2025 Urine Leukocytes Positive [facility] Urine Non-Hemolyzed Blood Small [facility] Urgent Care Visit Reporton 0 06-28-2025 Urgent Care Visit Report [facility] [address], [address] [place], [place] [address] OFFICE VISIT Date of Service: 06/28/25 MR#: [id number] Acct: [id number] Name: TAWANNACHANTEL GUZMAN Rep #: [id number] : 1950 Provider: REDDY Madrid Age/Sex: 75/F [place] [facility] [place] [place]: Signed Intake Vital Signs 03/03/25 10:56 06/28/25 10:04 Height 5 ft 4 in BP 122/64 H Blood Pressure Location Lt brachial Position Sitting Respiration 16 Pulse 72 Pulse Source NIBP Temp 97.7 F L Temp Source Oral Pulse Oximetry (%) 98 Oxygen Delivery Method room air Intake Visit Reasons: CONCERN FOR UTI Chief Complaint: dysuria, frequency, back pain Call Centre Supervisor Required: No Is patient in pain?: Yes Allergies vancomycin Adverse Reaction (Verified 06/28/25 10:22) itchy scalp cobweb on face Medications ???Medication ???Instructions ???Recorded ???Confirmed ???Type furosemide 40 mg tablet (Lasix) 40 mg PO .PRN PRN edema shortness 07/28/21 03/03/25 Rx of breath #90 tabs acetaminophen 500 mg capsule 1,000 mg PO Q6H PRN pain 12/12/24 03/03/25 History aspirin 81 mg tablet,delayed 81 mg PO QDAY 12/12/24 03/03/25 Hi story release (Adult Low Dose Aspirin) carvedilol 25 mg tablet (Coreg) 25 mg PO BID #180 tabs 03/03/25 Rx fluticasone fur. 100 mcg-umeclid 1 ea inhalation QDAY 03/03/2502/18 History 62.5 mcg-vilant 25 mcg inhalat.powder (Trelegy Ellipta) lisinopril 10 mg tablet 10 mg PO DAILY #90 tabs 03/03/25 0 03/03/25 Rx amoxicillin 875 mg-potassium 1 tab PO BID 5 days #10 tabs 06/2806/28/25 Rx clavulanate 125 mg tablet Is last menstrual period known: No Post menopausal: Yes Patient : No Have you fallen in the past year?: No Nurse's Note: dysuria, frequency, back pain x 3 days. denies fever, blood, abd pain. concern for UTI PFSH Medical History Non-ischemic cardiomyopathy Nonsustained ventricular tachycardia Chronic systolic (congestive) heart failure Arthritis Nicotine dependence Lipoma of arm Multiple thyroid nodules Thyroid disorder IBS (irritable bowel syndrome) Qmpwz-Myplyazmt-Lnnqo (WPW) syndrome Abdominal pain Back problem Surgical History History of hysterectomy History of left heart catheterization (10/2003) History of implantable cardiac defibrillator (ICD) (12/19/24) S/P thyroid biopsy ( 05/2018) S/P angioplasty History of cardiac radiofrequency ablation (10/2003) S/P tonsillectomy Family History Mother Arthritis Asthma Brother Brain cancer Grandmother Arthritis Social History (Updated 03/03/25 @ 11:03 by Tanna Joy) Smoking Status: Current every day smoker tobacco type: cigarettes quit status: considering quitting alcohol intake: current alcohol intake frequency: holidays/special occasions only substance use type: does not use caffeine: Yes Type: carbonated beverages Number of servings: 1 and tea Number of servings: 1 frequency: does not exercise seatbelt use: always HPI HPI Chief Complaint: dysuria, frequency, back pain Details: CHANTEL STACY, is a 75 F who presents to the office today for ? uti -sx started on Monday- burning with urination and back pain - took Azo- also states having urgency and frequency -burning stopped on Azo- still taking -no fever or chills -denies abd or pelvic pain -denies blood or discharge -tried so far Azo, Tylenol, cranberry juice and water- stopped drinking coke ROS Const Constitutional: Positive for other (ROS negative x6 except what was placed in HPI) Exam Const General: cooperative and no acute distress Orientation: alert and oriented x3 Resp Effort Inspection: normal respiratory effort, able to speak in complete sentences and symmetric chest movement Auscultation: Bilateral: Clear to Auscultation, Left: Clear to Auscultation and Right: Clear to Auscultation Cardio Rate: regular rate Rhythm: regular rhythm Heart Sounds: S1 normal and S2 normal GI Auscultation: normal bowel sounds Palpation: soft and no hepatosplenomegaly Other: -no CVA tenderness -some pressure to right side pelvic area with palpation -no abd pain with palpation Neuro General: patient alert, patient awake and patient oriented x3 Extrem General: normal to inspection and full ROM Psych Appearance: grossly normal Mental Status: mental status grossly normal Attitude: cooperative Thought Process: normal Thought Content: normal Judgment: judgment good Coding Level of Care Code Off vis,est,level 3 Diagnoses Dysuria R30.0 Assessment and Plan Assessment and Plan (1) Dysuria: Status: Acute Plan: -UA in office not conclusive of UT (more content not included)... Normal [facility] Urgent Care Visit Reporton 0 05-13-2025 Urgent Care Visit Report [facility] [address], [address] [place] [address] OFFICE VISIT Date of Service: 05/13/25 MR#: [id number] Acct: [id number] Name: CHANTEL STACY Rep #: [id number] : 1950 Provider: AYANA Maddox Age/Sex: 75/F [place] [facility] [place] Status: Signed Intake Vital Signs 03/03/25 10:56 05/13/25 09:24 Height 5 ft 4 in Weight: 116 lb BMI 19.9 BP 95/56 L 100/58 L Blood Pressure Location Lt brachial Lt radial Position Sitting Sitting Respiration 16 17 Pulse 79 84 Pulse Source NIBP NIBP Temp 98.4 F Temp Source Oral Pulse Oximetry (%) 91 Intake Visit Reasons: SINUS COMPLAINT Chief Complaint: Sinus pressure, drainage, and shortness of breathe Call Centre Supervisor Required: No Is patient in pain?: No Allergies vancomycin Adverse Reaction (Verified 03/03/25 10:59) itchy scalp cobweb on face Is last menstrual period known: No Post menopausal: No Patient : No Have you fallen in the past year?: No Nurse's Note: Complaint of sinus pressure, pain, drainage, and shortness of breathe. Symptoms for 8 weeks despite seeing PCP. [facility] Medical History Non-ischemic cardiomyopathy Nonsustained ventricular tachycardia Chronic systolic (congestive) heart failure Arthritis Nicotine dependence Lipoma of arm Multiple thyroid nodules Thyroid disorder IBS (irritable bowel syndrome) Yhrlc-Vzmtkgekv-Jnlba (WPW) syndrome Abdominal pain Back problem Surgical History History of hysterectomy History of left heart catheterization (10/2003) History of implantable cardiac defibrillator (ICD) (12/19/24) S/P thyroid biopsy ( 05/2018) S/P angioplasty History of cardiac radiofrequency ablation (10/2003) S/P tonsillectomy Family History Mother Arthritis Asthma Brother Brain cancer Grandmother Arthritis Social History (Updated 03/03/25 @ 11:03 by Tanna Joy) Smoking Status: Current every day smoker tobacco type: cigarettes quit status: considering quitting alcohol intake: current alcohol intake frequency: holidays/special occasions only substance use type: does not use caffeine: Yes Type: carbonated beverages Number of servings: 1 and tea Number of servings: 1 frequency: does not exercise seatbelt use: always HPI HPI Chief Complaint: Sinus pressure, drainage, and shortness of breathe Details: CHANTEL STACY, is a 75 F who presents to the office today [facility] for approximately 8-week history of progressively worsening facial pressure/congestion with purulent postnasal drip/cough and L>R ear pressure. No complaints of fever, chills, myalgias, fatigue, runny nose, or nausea/vomiting/diarrhea. No complaints of chest pain/shortness of breath/dyspnea on exertion. A couple of weeks ago her PCP gave patient sample fluticasone spray which she has been using without improvement, noting some benefit from her Tawanna pot with moderate amount of purulent discharge being lavaged out as she described. Several fnmc-sop-pzfvxew antihistamines have also been tried without relief. No close contacts with similar complaints. No other associated symptoms and no other alleviating/aggravating factors. ROS Const Constitutional: No other (as above) Exam Const General: cooperative, healthy appearing and no acute distress Nutritional Appearance: average body habitus Orientation: alert, awake and oriented x3 HENMT Head: normal to inspection Ears: hearing grossly normal bilaterally, external ears normal, TM's normal bilaterally and EAC's normal Nose: external nose normal, nares normal, septum normal and no nasal discharge Face and sinus: normal facial exam, left maxillary sinus palpable tender (with left maxillary fullness to palpation) and face symmetric Mouth: oral mucosae normal, lip normal, tongue normal and oropharynx normal Throat: posterior oropharynx normal, tonsils normal, uvula midline and postnasal drainage (Purulent) Eyes General: appearance normal, both eyes and all related structures Neck Neck: normal visual inspection, full ROM, no meningeal signs, supple and lymphadenopathy (Bilateral anterior cervical lymph node swelling/tender to palpation) Neck mass: No Thyroid: thyroid normal Chest Chest palpation inspection: normal inspection of the chest Resp Effort Inspection: normal respiratory effort and able to speak in complete sentences Auscultation: Bilateral: Clear to Auscultation Cardio Palpation: normal PMI Rate: regular rate Rhythm: regular rhythm Heart Sounds: S1 normal, S2 normal, no gallops, no murmurs and no rubs Pulses: radial pulses present GI Inspection: normal to inspection Skin General: no rashes or (more content not included)... Normal [facility] Absolute lymphocyte countOrd ered By: Abraham Bahena on 04-29-2025 Lymphocytes Auto (Unsp spec) [#/Vol] 2.14 10*3/uL 0.83-4.51 [facility] Absolute neutrophil countOrd ered By: Abraham Bahena on 04-29-2025 Neutrophils (Bld) [#/Vol] 4.3 10*3/uL 2.0-7.7 [facility] Anion gap in Serum or Plasma Ordered By: Abraham Bahena on 04-29-2025 Anion gap [Moles/Vol] 12 mmol/L 5- [facility] Automated lymphocyte count a s percentage of total leukocytesOrdered By: Abraham Bahena on 04-29-2025 Lymphocytes/100 WBC Auto (Unsp spec) 29.4 % - [facility] BUN/creatinine ratioOrdered By: Abraham Bahena on 04-29-2025 Urea nitrogen/Creatinine [Mass ratio] 18.0 mg/mg 10- [facility] Basophil percentageOrdered B y: Abraham Bahena on 04-29-2025 Basophils/100 WBC (Bld) 0.5 % 0- [facility] Bilirubin, totalOrdered By: Abraham Bahena on 04-29-2025 Bilirubin [Mass/Vol] 0.50 mg/dL 0.00-1.30 [facility] CBC W/Diff, Automatedon 04-20 Absolute Lymph 2.14 X10 3/uL Normal 0.83-4.51 [facility] Comment on above: Order Comment: Order Date: 04/29/25 Order Info: 0184-1 - CBCD Performed By: #### L 506.0400, L501.9520, L500.4100, L100.0100, L500.4050 #### [facility] [address] [place], [address] Absolute Neut 4.3 X10 3/uL Normal 2.0-7.7 [facility] Comment on above: Order Comment: Order Date: 04/29/25 Order Info: 0184-1 - CBCD Performed By: #### L 506.0400, L501.9520, L500.4100, L100.0100, L500.4050 #### [facility] [address] [place], [address] Basophils/100 WBC (Bld) 0.5 % Normal 0-1 [facility] Comment on above: Order Comment: Order Date: 04/29/25 Order Info: 0184-1 - CBCD Performed By: #### L 506.0400, L501.9520, L500.4100, L100.0100, L500.4050 #### [facility] [address] [place], [address] Eosinophils/100 WBC (Bld) 2.7 % Normal 0-5 [facility] Comment on above: Order Comment: Order Date: 04/29/25 Order Info: 0184-1 - CBCD Performed By: #### L 506.0400, L501.9520, L500.4100, L100.0100, L500.4050 #### [facility] [address] [place], [address] Erythrocyte distribution width (RBC) [Ratio] 11.9 % Normal 11.6-14.6 [facility] Comment on above: Order Comment: Order Date: 04/29/25 Order Info: 0184-1 - CBCD Performed By: #### L 506.0400, L501.9520, L500.4100, L100.0100, L500.4050 #### [facility] [address] [place], [address] Hematocrit (Bld) [Volume fraction] 39.7 % Normal 37-47 [facility] Comment on above: Order Comment: Order Date: 04/29/25 Order Info: 0184-1 - CBCD Performed By: #### L 506.0400, L501.9520, L500.4100, L100.0100, L500.4050 #### [facility] [address] [place], [address] Hemoglobin (Bld) [Mass/Vol] 13.3 g/dL Normal 12.0-15.0 [facility] Comment on above: Order Comment: Order Date: 04/29/25 Order Info: 0184-1 - CBCD Performed By: #### L 506.0400, L501.9520, L500.4100, L100.0100, L500.4050 #### [facility] [address] [place], [address] IG% 0.400 Normal 0.0-0.9 [facility] Comment on above: Order Comment: Order Date: 04/29/25 Order Info: 0184-1 - CBCD Result Comment: IG% - Immature Granulocytes (promyelocytes, myelocytes and metamyelocytes) > 1% indicates that a LEFT SHIFT is Present. Performed By: #### L 506.0400, L501.9520, L500.4100, L100.0100, L500.4050 #### [facility] [address] [place], [address] Lymphocytes/100 WBC (Bld) 29.4 % Normal 19-41 [facility] Comment on above: Order Comment: Order Date: 04/29/25 Order Info: 0184-1 - CBCD Performed By: #### L 506.0400, L501.9520, L500.4100, L100.0100, L500.4050 #### [facility] [address] [place], [address] MCH (RBC) [Entitic mass] 31.4 pg Normal 27.0-32.0 [facility] Comment on above: Order Comment: Order Date: 04/29/25 Order Info: 0184-1 - CBCD Performed By: #### L 506.0400, L501.9520, L500.4100, L100.0100, L500.4050 #### [facility] [address] [place], [address] MCHC (RBC) [Mass/Vol] 33.5 g/dL Normal 32-36 [facility] Comment on above: Order Comment: Order Date: 04/29/25 Order Info: 0184-1 - CBCD Performed By: #### L 506.0400, L501.9520, L500.4100, L100.0100, L500.4050 #### [facility] [address] [place], [address] MCV (RBC) [Entitic vol] 93.9 fL Normal 81-99 [facility] Comment on above: Order Comment: Order Date: 04/29/25 Order Info: 0184-1 - CBCD Performed By: #### L 506.0400, L501.9520, L500.4100, L100.0100, L500.4050 #### [facility] [address] [place], [address] Monocytes/100 WBC (Bld) 8.5 % Normal 0-10 [facility] Comment on above: Order Comment: Order Date: 04/29/25 Order Info: 0184-1 - CBCD Performed By: #### L 506.0400, L501.9520, L500.4100, L100.0100, L500.4050 #### [facility] [address] [place], [address] Neutrophils/100 WBC (Bld) 58.5 % Normal 47-70 [facility] Comment on above: Order Comment: Order Date: 04/29/25 Order Info: 0184-1 - CBCD Performed By: #### L 506.0400, L501.9520, L500.4100, L100.0100, L500.4050 #### [facility] [address] [place], [address] Nucleated RBC (Bld) [#/Vol] 0 10*3/uL Normal 0-5 [facility] Comment on above: Order Comment: Order Date: 04/29/25 Order Info: 0184-1 - CBCD Performed By: #### L 506.0400, L501.9520, L500.4100, L100.0100, L500.4050 #### [facility] [address] [place], [address] Platelet mean volume (Bld) [Entitic vol] 10.6 fL Normal 6.2-12.0 [facility] Comment on above: Order Comment: Order Date: 04/29/25 Order Info: 0184-1 - CBCD Performed By: #### L 506.0400, L501.9520, L500.4100, L100.0100, L500.4050 #### [facility] [address] [place], [address] Platelets (Bld) [#/Vol] 228 10*3/uL Normal 150-450 [facility] Comment on above: Order Comment: Order Date: 04/29/25 Order Info: 0184-1 - CBCD Performed By: #### L 506.0400, L501.9520, L500.4100, L100.0100, L500.4050 #### [facility] [address] [place], [address] RBC (Bld) [#/Vol] 4.23 10*6/uL Normal 4.2-5.4 [facility] Comment on above: Order Comment: Order Date: 04/29/25 Order Info: 0184-1 - CBCD Performed By: #### L 506.0400, L501.9520, L500.4100, L100.0100, L500.4050 #### [facility] [address] [place], [address] RDW SD 41.4 fl Normal 35.1-43.9 [facility] Comment on above: Order Comment: Order Date: 04/29/25 Order Info: 0184-1 - CBCD Performed By: #### L 506.0400, L501.9520, L500.4100, L100.0100, L500.4050 #### [facility] [address] [place], [address] WBC (Bld) [#/Vol] 7.3 10*3/uL Normal 4.4-11.0 [facility] Comment on above: Order Comment: Order Date: 04/29/25 Order Info: 0184-1 - CBCD Performed By: #### L 506.0400, L501.9520, L500.4100, L100.0100, L500.4050 #### [facility] [address] [place], [address] Calculated very low density lipoprotein (VLDL) cholesterol measurementOrdered By: Abraham Bahena on 04-29-2025 Calculated very low density lipoprotein (VLDL) cholesterol measurement 57 mg/dL High 5-40 [facility] Carbon dioxide, total [Moles /volume] in Central venous bloodOrdered By: Abraham Bahena on 04-29-2025 CO2 [Moles/Vol] 23.5 mmol/L 21.0-32.0 [facility] Chloride assayOrdered By: Josie Bahena on 04-29-2025 Chloride [Moles/Vol] 102 mmol/L 98-108 [facility] Comprehensive Metabolic Prof ilon 04-29-2025 Albumin [Mass/Vol] 4.3 g/dL Normal 3.4-4.8 [facility] Comment on above: Order Comment: Order Date: 04/29/25Order Info: 86-1 - CMPOrder Info: [id number] - LIPIDOrder Info: [id number] - TSHOrder Info: 7 - T4F Performed By: #### L 506.0400, L501.9520, L500.4100, L100.0100, L500.4050 ####[facility] [address] [place], [address] Albumin/Globulin [Mass ratio] 1.4 {ratio} Normal 0.9-2.4 [facility] Comment on above: Order Comment: Order Date: 04/29/25Order Info: 785- - CMPOrder Info: [id number] - LIPIDOrder Info: [id number] - TSHOrder Info: 7 - T4F Performed By: #### L 506.0400, L501.9520, L500.4100, L100.0100, L500.4050 ####[facility] [address] [place], [address] ALK PHOS 81 U/L Normal 35-104 [facility] Comment on above: Order Comment: Order Date: 04/29/25Order Info: 785- - CMPOrder Info: - LIPIDOrder Info: [id number] - TSHOrder Info: 7 - T4F Performed By: #### L 506.0400, L501.9520, L500.4100, L100.0100, L500.4050 ####[facility] [address] [place], [address] ALT [Catalytic activity/Vol] 8 U/L Normal <=34 [facility] Comment on above: Order Comment: Order Date: 04/29/25Order Info: 785-1 - CMPOrder Info: [id number] - LIPIDOrder Info: 3 - TSHOrder Info: [id number] - T4F Performed By: #### L 506.0400, L501.9520, L500.4100, L100.0100, L500.4050 ####[facility] [address] [place], [address] AST [Catalytic activity/Vol] 22 U/L Normal <=31 [facility] Comment on above: Order Comment: Order Date: 04/29/25Order Info: [id number] - CMPOrder Info: [id number] - LIPIDOrder Info: [id number] - TSHOrder Info: [id number] - T4F Performed By: #### L 506.0400, L501.9520, L500.4100, L100.0100, L500.4050 ####[facility] [address] [place], [address] Bilirubin [Mass/Vol] 0.50 mg/dL Normal 0.00-1.30 [facility] Comment on above: Order Comment: Order Date: 04/29/25Order Info: 785-1 - CMPOrder Info: [id number] - LIPIDOrder Info: 3 - TSHOrder Info: [id number] - T4F Performed By: #### L 506.0400, L501.9520, L500.4100, L100.0100, L500.4050 ####[facility] [address] [place], [address] BUN/CRE 18.0 RATIO Normal 10-20 [facility] Comment on above: Order Comment: Order Date: 04/29/25Order Info: 07-1 - CMPOrder Info: [id number] - LIPIDOrder Info: 3 - TSHOrder Info: [id number] - T4F Performed By: #### L 506.0400, L501.9520, L500.4100, L100.0100, L500.4050 ####[facility] [address] [place], [address] Calcium [Mass/Vol] 9.7 mg/dL Normal 7.6-11.0 [facility] Comment on above: Order Comment: Order Date: 04/29/25Order Info: 86-1 - CMPOrder Info: [id number] - LIPIDOrder Info: [id number] - TSHOrder Info: 7 - T4F Performed By: #### L 506.0400, L501.9520, L500.4100, L100.0100, L500.4050 ####[facility] [address] [place], [address] Chloride [Moles/Vol] 102 mmol/L Normal 98-108 [facility] Comment on above: Order Comment: Order Date: 04/29/25Order Info: 785- - CMPOrder Info: - LIPIDOrder Info: [id number] - TSHOrder Info: [id number] - T4F Performed By: #### L 506.0400, L501.9520, L500.4100, L100.0100, L500.4050 ####[facility] [address] [place], [address] CO2 [Moles/Vol] 23.5 mmol/L Normal 21.0-32.0 [facility] Comment on above: Order Comment: Order Date: 04/29/25Order Info: [id number] - CMPOrder Info: - LIPIDOrder Info: [id number] - TSHOrder Info: [id number] - T4F Performed By: #### L 506.0400, L501.9520, L500.4100, L100.0100, L500.4050 ####[facility] [address] [place], [address] Creatinine [Mass/Vol] 0.76 mg/dL Normal 0.70-1.20 [facility] Comment on above: Order Comment: Order Date: 04/29/25Order Info: 785- - CMPOrder Info: - LIPIDOrder Info: [id number] - TSHOrder Info: 7 - T4F Performed By: #### L 506.0400, L501.9520, L500.4100, L100.0100, L500.4050 ####[facility] [address] [place], [address] GAP 12 Normal 5-15 [facility] Comment on above: Order Comment: Order Date: 04/29/25Order Info: [id number] - CMPOrder Info: [id number] - LIPIDOrder Info: [id number] - TSHOrder Info: [id number] - T4F Performed By: #### L 506.0400, L501.9520, L500.4100, L100.0100, L500.4050 ####[facility] [address] [place], [address] GFR/1.73 sq M.predicted among non-blacks MDRD (S/P/Bld) [Vol rate/Area] 82 mL/min/{1.73_m2} Normal >60 [facility] Comment on above: Order Comment: Order Date: 04/29/25Order Info: 785- - CMPOrder Info: [id number] - LIPIDOrder Info: 6-3 - TSHOrder Info: [id number] - T4F Result Comment: mL/m in/1.73m2 CKD-EPI Creatinine Equation (2020) Performed By: #### L 506.0400, L501.9520, L500.4100, L100.0100, L500.4050 ####[facility] [address] [place], [address] Globulin (S) [Mass/Vol] 3.0 g/dL Normal 2.2-4.2 [facility] Comment on above: Order Comment: Order Date: 04/29/25Order Info: 07-1 - CMPOrder Info: [id number] - LIPIDOrder Info: [id number] - TSHOrder Info: [id number] - T4F Performed By: #### L 506.0400, L501.9520, L500.4100, L100.0100, L500.4050 ####[facility] [address] [place], [address] Glucose [Mass/Vol] 88 mg/dL Normal 70-99 [facility] Comment on above: Order Comment: Order Date: 04/29/25Order Info: 86-1 - CMPOrder Info: [id number] - LIPIDOrder Info: 3 - TSHOrder Info: [id number] - T4F Performed By: #### L 506.0400, L501.9520, L500.4100, L100.0100, L500.4050 ####[facility] [address] [place], [address] Potassium [Moles/Vol] 4.3 mmol/L Normal 3.3-5.1 [facility] Comment on above: Order Comment: Order Date: 04/29/25Order Info: 785-1 - CMPOrder Info: [id number] - LIPIDOrder Info: 3 - TSHOrder Info: [id number] - T4F Performed By: #### L 506.0400, L501.9520, L500.4100, L100.0100, L500.4050 ####[facility] [address] [place], [address] Sodium [Moles/Vol] 138 mmol/L Normal 133-145 [facility] Comment on above: Order Comment: Order Date: 04/29/25Order Info: 785- - CMPOrder Info: [id number] - LIPIDOrder Info: 3 - TSHOrder Info: [id number] - T4F Performed By: #### L 506.0400, L501.9520, L500.4100, L100.0100, L500.4050 ####[facility] [address] [place], [address] T PROT 7.3 g/dL Normal 5.9-8.4 [facility] Comment on above: Order Comment: Order Date: 04/29/25Order Info: [id number] - CMPOrder Info: [id number] - LIPIDOrder Info: 3 - TSHOrder Info: [id number] - T4F Performed By: #### L 506.0400, L501.9520, L500.4100, L100.0100, L500.4050 ####[facility] [address] [place], [address] Urea nitrogen [Mass/Vol] 14 mg/dL Normal 4-19 [facility] Comment on above: Order Comment: Order Date: 04/29/25Order Info: [id number] - CMPOrder Info: [id number] - LIPIDOrder Info: [id number] - TSHOrder Info: [id number] - T4F Performed By: #### L 506.0400, L501.9520, L500.4100, L100.0100, L500.4050 ####[facility] [address] [place], [address] Eosinophil percentageOrdered By: Abraham Bahena on 04-29-2025 Eosinophils/100 WBC (Bld) 2.7 % 0-5 [facility] Erythrocyte distribution wid th ratioOrdered By: Abraham Bahena on 04-29-2025 Erythrocyte distribution width (RBC) [Ratio] 11.9 % 11.6-14.6 [facility] Erythrocyte distribution wid th standard deviationOrdered By: Abraham Bahena on 04-29-2025 Erythrocyte distribution width (RBC) [Ratio] 41.4 fl 35.1-43.9 [facility] Glomerular filtration rate ( GFR) estimation/1.73 sq m using serum, plasma, or whole bOrdered By: Abraham Bahena on 04-29-2025 GFR/1.73 sq M.predicted among non-blacks MDRD (S/P/Bld) [Vol rate/Area] 82 mL/min/{1.73_m2} >60 [facility] Comment on above: mL/min/1.73m2 CKD-EP I Creatinine Equation (2020) Hematocrit Auto (Bld) [Volum e fraction]Ordered By: Abraham Bahena on 04-29-2025 Hematocrit (Bld) [Volume fraction] 39.7 % 37-47 [facility] Hemoglobin measurementOrdere d By: Abraham Bahena on 04-29-2025 Hemoglobin (Bld) [Mass/Vol] 13.3 g/dL 12.0-15.0 [facility] Immature granulocytes/100 WB C Auto (Bld)Ordered By: Abraham Bahena on 04-29-2025 Immature granulocytes/100 WBC (Bld) 0.400 % 0.0-0.9 [facility] Comment on above: IG% - Immature Granu locytes (promyelocytes, myelocytes and metamyelocytes) > 1% indicates that a LEFT SHIFT is Present. LDL calc ser/plasOrdered By: Abraham Bahena on 04-29-2025 Cholesterol in LDL [Mass/Vol] 158 mg/dL [facility] Comment on above: Obtdsfcffh=639-159 m g/dL & Higher Wlrv=471 mg/dL or greater Laboratory - Chemistry and C hemistry - challengeOrdered By: Abraham Bahena on 04-29-2025 AST [Catalytic activity/Vol] 22 U/L <32 [facility] Lipid Profileon 04-29-2025 CHOL:HDL 4.93 Normal [facility] Comment on above: Order Comment: Order Date: 04/29/25Order Info: [id number] - CMPOrder Info: [id number] - LIPIDOrder Info: [id number] - TSHOrder Info: [id number] - T4F Performed By: #### L 506.0400, L501.9520, L500.4100, L100.0100, L500.4050 ####[facility] [address] [place], [address] Cholesterol [Mass/Vol] 270 mg/dL High <=200 [facility] Comment on above: Order Comment: Order Date: 04/29/25Order Info: [id number] - CMPOrder Info: [id number] - LIPIDOrder Info: [id number] - TSHOrder Info: [id number] - T4F Result Comment: Chol esterol level, Desirable <200 mg/dL Borderline high cholesterol 200-239 mg/dL High cholesterol >=240 mg/dL Recommendations of the NCEP Adult Treatment Panel for the following risk-cutoff thresholds for the [place] population. Performed By: #### L 506.0400, L501.9520, L500.4100, L100.0100, L500.4050 ####[facility] [address] [place], [place], [phone] Cholesterol in HDL [Mass/Vol] 55 mg/dL Normal [facility] Comment on above: Order Comment: Order Date: 04/29/25Order Info: [id number] - CMPOrder Info: [id number] - LIPIDOrder Info: [id number] - TSHOrder Info: [id number] - T4F Result Comment: Shakira onal Cholesterol Education Program (NCEP) guidelines: <40 mg/dL: Low HDL-cholesterol (major risk factor for CHD) >= 60 mg/dL: High HDL-cholesterol (negative risk factor for CHD) HDL-cholesterol is affected by a number of factors, e.g. smoking, exercise, hormones, sex and age. Performed By: #### L 506.0400, L501.9520, L500.4100, L100.0100, L500.4050 ####[facility] [address] [place], [place], [phone] Cholesterol in LDL [Mass/Vol] 158 mg/dL Normal [facility] Comment on above: Order Comment: Order Date: 04/29/25Order Info: [id number] - CMPOrder Info: [id number] - LIPIDOrder Info: [id number] - TSHOrder Info: [id number] - T4F Result Comment: Bord eftwcr=395-951 mg/dL Higher Vorl=167 mg/dL or greater Performed By: #### L 506.0400, L501.9520, L500.4100, L100.0100, L500.4050 ####[facility] [address] [place], [address] Cholesterol in VLDL [Mass/Vol] 57 mg/dL High 5-40 [facility] Comment on above: Order Comment: Order Date: 04/29/25Order Info: [id number] - CMPOrder Info: [id number] - LIPIDOrder Info: [id number] - TSHOrder Info: 7 - T4F Performed By: #### L 506.0400, L501.9520, L500.4100, L100.0100, L500.4050 ####[facility] [address] [place], [place], [address] Triglyceride [Mass/Vol] 286 mg/dL High [facility] Comment on above: Order Comment: Order Date: 04/29/25Order Info: [id number] - CMPOrder Info: [id number] - LIPIDOrder Info: [id number] - TSHOrder Info: [id number] - T4F Result Comment: The drugs N-Acetylcysteine and Metamizole may falsely depress this assay. Normal range: <150 mg/dL Borderline High: 150-199 mg/dL High: 200-499 mg/dL Very High: >500 mg/dL Performed By: #### L 506.0400, L501.9520, L500.4100, L100.0100, L500.4050 ####[facility] [address] [facility] [place], [address] MCV (mean corpuscular volume ) determinationOrdered By: Abraham Bahena on 04-29-2025 MCV (RBC) [Entitic vol] 93.9 fL 81-99 [facility] Mean corpuscular hemoglobin (MCH) determinationOrdered By: Abraham Bahena on 04-29-2025 MCH (RBC) [Entitic mass] 31.4 pg 27.0-32.0 [facility] Mean corpuscular hemoglobin concentration (MCHC) determinationOrdered By: Abraham Bahena on 04-29-2025 MCHC (RBC) [Mass/Vol] 33.5 g/dL 32-36 [facility] Mean platelet volume determi nationOrdered By: Abraham Bahena on 04-29-2025 Platelet mean volume (Bld) [Entitic vol] 10.6 fL 6.2-12.0 [facility] Monocyte percentageOrdered B y: Abraham Bahena on 04-29-2025 Monocytes/100 WBC (Bld) 8.5 % 0-10 [facility] Neutrophil percentageOrdered By: Abraham Bahena on 04-29-2025 Neutrophils/100 WBC (Bld) 58.5 % 47-70 [facility] Nucleated red blood cell per centageOrdered By: Abraham Bahena on 04-29-2025 Nucleated RBC/100 WBC (Bld) [Ratio] 0 % 0-5 [facility] Platelet countOrdered By: Josie Bahena on 04-29-2025 Platelets (Bld) [#/Vol] 228 10*3/uL 150-450 [facility] Potassium measurement (mass/ volume)Ordered By: Abraham Bahena on 04-29-2025 Potassium (Unsp spec) [Mass/Vol] 4.3 mmol/L 3.3-5.1 [facility] RBC Auto (Bld) [#/Vol]Ordere d By: Abraham Bahena on 04-29-2025 RBC (Bld) [#/Vol] 4.23 10*6/uL 4.2-5.4 [facility] Screening total cholesterol/ high density lipoprotein (HDL) cholesterol ratioOrdered By: Abraham Bahena on 04-29-2025 Cholesterol.total/Talita sterol in HDL [Mass ratio] 4.93 {ratio} [facility] Serum creatinine measurement (mass/volume)Ordered By: Abraham Bahena on 04-29-2025 Creatinine [Mass/Vol] 0.76 mg/dL 0.70-1.20 [facility] Serum globulin measurementOr dered By: Abraham Bahena on 04-29-2025 Globulin (S) [Mass/Vol] 3.0 g/dL 2.2-4.[address] [facility] Serum glucose measurement (m ass/volume)Ordered By: Abraham Bahena on 04-29-2025 Glucose [Mass/Vol] 88 mg/dL 70-99 [facility] Serum or plasma alanine butler otransferase (ALT) measurementOrdered By: Abraham Bahena on 04-29-2025 ALT [Catalytic activity/Vol] 8 U/L <35 [facility] [facility] Serum or plasma albumin devante urement (mass/volume)Ordered By: Abraham Bahena on 04-29-2025 Albumin [Mass/Vol] 4.3 g/dL 3.4-4.8 [facility] Serum or plasma albumin/glob ulin mass ratioOrdered By: Abraham Bahena on 04-29-2025 Albumin/Globulin [Mass ratio] 1.4 {ratio} 0.9-2.4 [facility] Serum or plasma alkaline malissa sphatase measurementOrdered By: Abraham Bahena on 04-29-2025 ALP [Catalytic activity/Vol] 81 U/L 35-104 [facility] Serum or plasma calcium devante urement (mass/volume)Ordered By: Abraham Bahena on 04-29-2025 Calcium [Mass/Vol] 9.7 mg/dL 7.6-11.0 [facility] Serum or plasma cholesterol in HDL measurement (mass/volume)Ordered By: Abraham Bahena on 04-29-2025 Cholesterol in HDL [Mass/Vol] 55 mg/dL >40 [facility] Comment on above: National Cholesterol Education Program (NCEP) guidelines:<40 mg/dL: Low HDL-cholesterol (major risk factor for CHD)>= 60 mg/dL: High HDL-cholesterol (negative risk factor for CHD)HDL-cholesterol is affected by a number of factors, e.g. smoking, exercise, hormones, sex and age. Serum or plasma cholesterol measurement (mass/volume)Ordered By: Abraham Bahena on 04-29-2025 Cholesterol [Mass/Vol] 270 mg/dL High <201 [facility] Comment on above: Cholesterol level, D esirable <200 mg/dLBorderline high cholesterol 200-239 mg/dLHigh cholesterol >=240 mg/dLRecommendations of the NCEP Adult Treatment Panel for the following risk-cutoff thresholds for the [place] population. Serum or plasma urea nitroge n measurement (mass/volume)Ordered By: Abraham Bahena on 04-29-2025 Urea nitrogen [Mass/Vol] 14 mg/dL 4-19 [facility] Sodium levelOrdered By: Abraham Bahena on 04-29-2025 Sodium [Moles/Vol] 138 mmol/L 133-145 [facility] T4 Free Directon 04-29-2025 T4 FREE DIRECT 1.30 ng/dL Normal 0.76-1.46 [facility] Comment on above: Order Comment: Order Date: 04/29/25Order Info: [id number] - CMPOrder Info: [id number] - LIPIDOrder Info: [id number] - TSHOrder Info: [id number] - T4F Performed By: #### L 506.0400, L501.9520, L500.4100, L100.0100, L500.4050 ####[facility] [address] [place], [address] T4 freeOrdered By: Abraham israel on 04-29-2025 Free T4 [Mass/Vol] 1.30 ng/dL 0.76-1.46 [facility] TSH DL <= 0.005 mIU/L QnOrde red By: Abraham Bahena on 04-29-2025 TSH Qn 0.034 uIU/mL Low 0.300-4.200 [facility] Thyroid Stim Hormone (TSH)on 04-29-2025 TSH 0.034 uIU/mL Low 0.300-4.200 [facility] Comment on above: Order Comment: Order Date: 04/29/25Order Info: [id number] - CMPOrder Info: [id number] - LIPIDOrder Info: 3 - TSHOrder Info: [id number] - T4F Performed By: #### L 506.0400, L501.9520, L500.4100, L100.0100, L500.4050 ####[facility] [address] [place], [place], [address] Total proteinOrdered By: Fede Bahena on 04-29-2025 Protein [Mass/Vol] 7.3 g/dL 5.9-8.4 [facility] Triglycerides measurementOrd ered By: Abraahm Bahena on 04-29-2025 Triglyceride [Mass/Vol] 286 mg/dL High <[address] [facility] Comment on above: The drugs N-Acetylcy steine and Metamizole may falsely depress this assay. Normal range: <150 mg/dLBorderline High: 150-199 mg/dLHigh: 200-499 mg/dLVery High: >500 mg/dL Vitamin D,25 Hydroxyon 04-29 Vitamin D 25-OH 22.1 ng/mL Low 30-100 [facility] Comment on above: Order Comment: Order Date: 04/29/25Order Info: [id number] - CMPOrder Info: [id number] - LIPIDOrder Info: 3 - TSHOrder Info: 7 - T4F Result Comment: Bonnie min D Status Deficiency: <20 ng/mL (50nmol/L) Insufficiency: 20-30 ng/mL (50-75 nmol/L) Sufficiency: 30-100 ng/mL (75-250 nmol/L) Toxicity: >100 ng/mL (>250 nmol/L) Performed By: #### L 506.1001 ####[facility] [address] [place], [address] White blood cell (WBC) count Ordered By: Abraham Bahena on 04-29-2025 WBC (Bld) [#/Vol] 7.3 10*3/uL 4.4-11.0 [facility] Cardiology Visit Reporton Cardiology Visit Report [facility] [address] [place] [address] OFFICE VISIT Date of Service: 03/03/25 MR#: [id number] Acct: [id number] Name: CHANTEL STACY Rep #: [id number] : 1950 Provider: REDDY healy Age/Sex: 74/F [place] [facility] [place] Status: Signed HPI HPI History of Present Illness Details: CHANTEL STACY, is a 74 F who presents to the office today for a follow-up visit. She has a history of Lfvhx-Rihyatlun-Zqdpq syndrome status post ablation in 2002. 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 In February 2013, she had RV ICD lead capped and replaced at [facility] with Dr. Islas. She denies chest, arm, jaw, or neck discomfort. She states shortness of breath with exertion such as in a hurry or lifting something heavy. This is unchanged from previous. She denies symptoms of shortness of breath at rest, orthopnea, PND, sudden weight gain, or bilateral lower extremity edema. She denies chronic cough. She states unchanged palpitations approximately twice a month associated with brief lightheadedness. She denies dizziness, near syncope, or syncopal episodes. She denies claudication issues. She denies fever or chills. She denies blood in urine, blood in stool, or epistaxis. She denies myalgia. She continues with fatigue. Her exercise tolerance is stable. She had her ICD interrogated today. Intake Vital Signs 09/02/24 08:50 12/19/24 08:21 03/03/25 10:56 Height 5 ft 4 in 5 ft 4 in 5 ft 4 in Weight: 116 lb BMI 19.9 BP 95/56 L Blood Pressure Location Lt brachial Position Sitting Respiration 16 Pulse 79 Pulse Source NIBP Intake Visit Reasons: 6 M FU ICD f/u @ 11AM Call Centre Supervisor Required: No Is patient in pain?: No Allergies vancomycin Adverse Reaction (Verified 03/03/25 10:59) itchy scalp cobweb on face Medications ???Medication ???Instructions ???Recorded ???Confirmed ???Type furosemide 40 mg tablet (Lasix) 40 mg PO .PRN PRN edema shortness 07/28/21 03/03/25 Rx of breath #90 tabs acetaminophen 500 mg capsule 1,000 mg PO Q6H PRN pain 12/12/24 03/03/25 History aspirin 81 mg tablet,delayed 81 mg PO QDAY 12/12/24 03/03/25 Hi story release (Adult Low Dose Aspirin) carvedilol 25 mg tablet (Coreg) 25 mg PO BID #180 tabs 03/03/25 Rx fluticasone fur. 100 mcg-umeclid 1 ea inhalation QDAY 03/03/2502/18 History 62.5 mcg-vilant 25 mcg inhalat.powder (Trelegy Ellipta) lisinopril 10 mg tablet 10 mg PO DAILY #90 tabs 03/03/25 0 03/03/25 Rx Ejection fraction %: 20 Have you fallen in the past year?: No PFSH Medical History Non-ischemic cardiomyopathy Nonsustained ventricular tachycardia Chronic systolic (congestive) heart failure Arthritis Nicotine dependence Lipoma of arm Multiple thyroid nodules Thyroid disorder IBS (irritable bowel syndrome) Zjjnr-Rlsrxxvrg-Nzjyj (WPW) syndrome Abdominal pain Back problem Surgical History History of hysterectomy History of left heart catheterization (10/2003) History of implantable cardiac defibrillator (ICD) (12/19/24) S/P thyroid biopsy ( 05/2018) S/P angioplasty History of cardiac radiofrequency ablation (10/2003) S/P tonsillectomy Family History Mother Arthritis Asthma Brother Brain cancer Grandmother Arthritis Social History (Updated 03/03/25 @ 11:03 by Tanna Joy) Smoking Status: Current every day smoker tobacco type: cigarettes quit status: considering quitting alcohol intake: current alcohol intake frequency: holidays/special occasions only substance use type: does not use caffeine: Yes Type: carbonated beverages Number of servings: 1 and tea Number of servings: 1 frequency: does not exercise seatbelt use: always ROS Const Const: Negative for fatigue or weakness Eyes Eyes: Negative for change in vision ENT ENT: Negative for dizziness or balance problems Cardio Chest Pain: No Palpitations: No Edema: None Muscle aches with walking: None Resp Respiratory: Positive for SOB with activity (With hurried activity or lifting something heavy- unchanged from previous); Negative for SOB at rest or SOB orthopnea SOB lying down GI GI: Negative nausea or heartburn : Negative for hematuria or frequent nighttime urination/ nocturia Musc Musc: Negative for balance problems Skin Skin: Negative non-healing lesions or rash Neuro Neuro: Negative for dizziness, lightheadedness, near syncope, syncope or weakness Endo Endo: Negative for fatigue Allergy Allergy/Immunology: Negative for rash Cardiology Exam Const Appearance: cooperative, healthy appearing, comfo (more content not included)... Normal [facility] Pacemaker Checkon 03-03-2025 Pacemaker Check [facility] [place] [address] Pacemaker Check Date of Service: 03/03/25 1546 MR#: [id number] Acct: [id number] Name: CHANTEL STACY Rep #: [id number] : 1950 From: Bea Gresham Age/Sex: 74/F [place] [facility] [place] Signed Billing Codes ICD Device Billin ICD Dev Prog Eval, Single Assessment and Plan Assessment and Plan (1) Nonsustained ventricular tachycardia: Status: Chronic Comment: Monomorphic ventricular tachycardia (2) Non-ischemic cardiomyopathy: Status: Chronic (3) History of implantable cardiac defibrillator (ICD): Status: Chronic Comment: 04/10/2006 and 07/28/2011, 12/19/2024 RV lead replacement 02/20/19 03/03/25 1547 Date Bea Edmondson Signature: Date (if applicable) CC: Normal [facility] Urine Cultureon 01-03-2025 URC Escherichia coli [place] Count 50,000-80,000 Escherichia coli: REACTION Ampicillin Islt ZEHRA >=32 Ampicillin+Sulbac Islt ZEHRA 16 I Cefepime Islt ZEHRA <=0.12 S cefTRIAXone Islt ZEHRA <=0.25 S Ciprofloxacin Islt ZEHRA <=0.06 S B-Lactamase Extended Susc Islt NEG Gentamicin Islt ZEHRA <=1 S levoFLOXacin Islt ZEHRA <=0.12 S Meropenem Islt ZEHRA <=0.25 S Nitrofurantoin Islt ZEHRA 32 S Pip+Tazo Islt ZEHRA <=4 S TMP SMX Islt ZEHRA >=320 R Normal [facility] Comment on above: Performed By: #### M 100.2984 ####[facility] [address] [place], [place], [address] Urgent Care Visit Reporton 0 01-01-2025 Urgent Care Visit Report [facility] [address], [address] [place], [place] [address] OFFICE VISIT Date of Service: 01/01/25 MR#: [id number] Acct: [id number] Name: CHANTEL STACY Rep #: [id number] : 1950 Provider: AYANA Maddox Age/Sex: 74/F [place] [facility] [place] Status: Signed Intake Vital Signs 12/19/24 08:21 01/01/25 09:30 Height 5 ft 4 in Weight: 111 lb BP 100/60 Position Sitting Pulse 76 Temp 97.9 F Temp Source Oral Pulse Oximetry (%) 99 Oxygen Delivery Method room air Intake Visit Reasons: CONCERN FOR UTI Accompanied by: Self Allergies vancomycin Adverse Reaction (Verified 01/01/25 09:18) itchy scalp cobweb on face Medications ???Medication ???Instructions ???Recorded ???Confirmed ???Type furosemide 40 mg tablet (Lasix) 40 mg PO .PRN PRN edema shortness 07/28/21 01/01/25 Rx of breath #90 tabs carvedilol 25 mg tablet (Coreg) 25 mg PO BID #180 tabs 09/02/24 Rx lisinopril 10 mg tablet 10 mg PO DAILY Changed back to 01/01/25 Rx Lisinopril per pt request. #90 tabs acetaminophen 500 mg capsule 1,000 mg PO Q6H PRN pain 12/12/24 01/01/25 History aspirin 81 mg tablet,delayed 81 mg PO QDAY 12/12/24 01/01/25 Hi story release (Adult Low Dose Aspirin) tiotropium 2.5 mcg-olodaterol 2.5 2 puff inhalation QDAY 12/12/24 0 01/01/25 History mcg/actuation mist for inhalation (Stiolto Respimat) nitrofurantoin 100 mg PO Q12H 5 days #10 caps 11/1301/01/25 Rx monohydrate/macrocrystals 100 mg capsule (Macrobid) Have you fallen in the past year?: No Nurse's Note: Patient has UTI concerns. Patient has frequency and burning with urination.Patient states she had a bladder infection 3 weeks ago and was placed on Macrobid but she stopped it after 2 days cause she was having diarrhea. Patient was told to start it again cause it shouldn't be causing that and she was having surgery. Patient has taken AZO and she states that has helped her. [facility] Medical History Non-ischemic cardiomyopathy Nonsustained ventricular tachycardia Chronic systolic (congestive) heart failure Arthritis Nicotine dependence Lipoma of arm Multiple thyroid nodules Thyroid disorder IBS (irritable bowel syndrome) Lxfik-Fdyfcowza-Ccgnk (WPW) syndrome Abdominal pain Back problem Surgical History History of hysterectomy History of left heart catheterization (10/2003) History of implantable cardiac defibrillator (ICD) (07/28/11) S/P thyroid biopsy ( 05/2018) S/P angioplasty History of cardiac radiofrequency ablation (10/2003) S/P tonsillectomy Family History Mother Arthritis Asthma Brother Brain cancer Grandmother Arthritis Social History (Updated 12/12/24 @ 13:48 by Tanna Joy) Smoking Status: Current every day smoker tobacco type: cigarettes alcohol intake: current alcohol intake frequency: holidays/special occasions only substance use type: does not use caffeine: Yes Type: carbonated beverages Number of servings: 2 frequency: does not exercise seatbelt use: always HPI HPI Details: CHANTEL STACY, is a 74 F who presents to the office today for [facility] for approximately 2 day history of dysuria and urinary frequency with suprapubic pressure. No complaints of fever, chills, sweats, lightheadedness/dizziness , nausea/vomiting, or chest pain/shortness of breath/dyspnea on exertion/back pain. No changes in color/ character of urine or stool; no urethral/ vaginal discharge. Last urinary tract infection approximately 3 weeks ago responded well to Macrobid, requesting the same again today. No tjhn-myd-yaomddz products taken to assist. No other associated symptoms and no alleviating/aggravating factors. ROS Const Constitutional: No other (As above) Exam Const General: cooperative, healthy appearing and no acute distress Orientation: alert, awake and oriented x3 Chest Chest palpation inspection: normal inspection of the chest Resp Effort Inspection: normal respiratory effort and able to speak in complete sentences Cardio Rate: regular rate Pulses: radial pulses present GI Inspection: normal to inspection Palpation: soft and tender suprapubic (Patient describes upon self-palpation) General: No CVA tenderness Skin General: no rashes or lesions noted Neuro General: patient alert, patient awake and patient oriented x3 Cognition: normal cognition Speech: speech normal Psych Appearance: grossly normal Mental Status: mental status grossly normal Mood: congruent mood Affect: normal affect Speech and Movement: speech and movement normal Attitude: cooperative Diagnoses Urinary tra (more content not included)... Normal [facility] Pacemaker Checkon 12-24-2024 Pacemaker Check [facility] [address] [place] [address] Pacemaker Check Date of Service: 12/24/241643 MR#: [id number] Acct: [id number] Name: CHANTEL STACY Rep #: [id number] : 1950 From: Bea Gresham Age/Sex: 74/F [place] [facility] [place]: Signed Billing Codes ICD Device Billin ICD Dev Prog Eval, Single Assessment and Plan Assessment and Plan (1) Nonsustained ventricular tachycardia: Status: Chronic Comment: Monomorphic ventricular tachycardia (2) Non-ischemic cardiomyopathy: Status: Chronic (3) History of implantable cardiac defibrillator (ICD): Status: Chronic Comment: 04/10/2006 and 07/28/2011 RV lead replacement 02/20/19 (4) Qwuuf-Wchrfmkjc-Hudnm (WPW) syndrome: Status: Chronic Comment: s/p RFA 200212/24/241644 Date Bea Gresham Delvis Signature: Date (if applicable) CC: [facility] CVS/EX.DEFIBPRon 12-19-2024 CVS/EX.DEFIBPR [facility] [address] [place] [address] Defibrillator Procedure Note MR#: [id number] Acct: [id number] Name: CHANTEL STACY Rep #: [id number] : 1950 F 74 From: Messi Begum MD PCP: Dr. Abraham Bahena MD [place] [facility] [place]: Date of Exam: Exam# Ordering Dr: Defibrillator Procedure Note Defibrillator Procedure Note Chantel Stacy is a 74 year old female who has a past medical history of an NICM s/p single chamber ICD, who presented to the [place] [facility] lab for further evaluation regarding an ICD generator changeout. The patient was brought to the electrophysiology laboratory in a fasting state. Sedation provided by nuring staff. The left shoulder area was prepped and draped in the usual manner and the skin and subcutaneous tissues below the left clavicle were infiltrated with 1% lidocaine for local anesthesia. The skin was sharply incised. Electrocautery and blunt dissection were carried out to the level of the pulse generator. The leads were disconnected from the existing generator, and it was removed. A pin pulg was placed in the SVC port of the new generator. The generator was attached to the leads. The device was noted to function appropriately. The pocket was noted to have an absence of active bleeding. The pulse generator was placed in the pocket. The pocket was then irrigated with antibiotic solution. The incision was closed with two layers of 2-0 Vicryl and a subcuticular closure of 4-0 Vicryl. The incision was dressed. Conclusions Successfu ICD generator changeout with adequate pacing threshold, sensing and lead impedance. Recommendations 1. Routine follow-up in the device clinic. 2. Remove outer dressing after 48 hours. Leave steri-strips intact for 7-10 days, then remove if it does not fall off by itself. 3. Device follow up as scheduled. 4. Hold anticoagulation for 24 hours (No heparin IV or NOAC, ok to continue warfarin). 5. The patient can continue to follow-up with Dr. Baez. 12/19/241123 Date Messi Beugm MD CC: Dr. Quentin Baez MD; Dr. Abraham Bahena MD; Dr. Messi Begum MD Date Dictated: 12/19/241119 Date Transcribed: 12/19/241119 Reimbursement Counselor: SS Signed Normal [facility] 12 Lead EKG [place] [facility] [place] 12-12-2024 12 Lead EKG performed by [facility] [address] [place] [address] 12 Lead EKG performed [place] [facility] [place] 12/12/24 1340 MR#: [id number] Acct: [id number] Name: CHANTEL STACY Rep #: [id number] : 1950 74 From: Abraham Rosales SALES ENGINEER ACCOUNT MANAGER SALES ENGINEER ACCOUNT MANAGER-C Attending Dr: Abraham Rosales, SALES ENGINEER ACCOUNT MANAGER-C Status: DEP AMB Ordering Dr: Abraham Rosales SALES ENGINEER ACCOUNT MANAGER SALES ENGINEER ACCOUNT MANAGER-C Date: 12/12/24 [place] [facility] [place] Sex: F C Admitted: BMS/12 Lead EKG [place] [facility] [place] ECG Report Interpretation -Sinus Rhythm - occasional ectopic ventricular beat -Old anteroseptal infarct. - Negative T-waves -Possible Anterolateral ischemia. ABNORMAL Electronically signed on 12/17/2024 at 10:02 by Quentin Baezwood Software Version [id number] 12/17/24 1005 Date Abraham Rosales NP SALES ENGINEER ACCOUNT MANAGER-C CC: Dr. Abraham Bahena MD Date Dictated: 12/12/24 1340 Date Transcribed: 12/12/241339 Reimbursement Counselor: JHR Signed Normal [facility] Basic Metabolic Profile (BMP )on 12-12-2024 BUN/CRE 22.7 RATIO High 10-20 [facility] Comment on above: Performed By: #### L 500.2500, L400.0001, L100.0500 ####[facility] [address] [place], [address] CA,Total 9.1 mg/dL Normal 8.5-10.1 [facility] Comment on above: Performed By: #### L 500.2500, L400.0001, L100.0500 ####[facility] [address] [place], [address] Chloride [Moles/Vol] 105 mmol/L Normal 98-107 [facility] Comment on above: Performed By: #### L 500.2500, L400.0001, L100.0500 ####[facility] [address] [place], [address] CO2 [Moles/Vol] 29.0 mmol/L Normal 21.0-32.0 [facility] Comment on above: Performed By: #### L 500.2500, L400.0001, L100.0500 ####[facility] [address] [place], [address] Creatinine [Mass/Vol] 0.79 mg/dL Normal 0.55-1.02 [facility] Comment on above: Result Comment: The validity of the calculated GFR GFRAA in patients over 70 years has not been determined. Clinical correlation is essential. Performed By: #### L 500.2500, L400.0001, L100.0500 ####[facility] [address] [place], [address] EST GFR - AA 91 mL/min Normal >60 [facility] Comment on above: Result Comment: Afri can [place] GFR Calc Performed By: #### L 500.2500, L400.0001, L100.0500 ####[facility] [address] [place], [address] GAP 4 Low 5-15 [facility] Comment on above: Performed By: #### L 500.2500, L400.0001, L100.0500 ####[facility] [address] [place], [address] GFR/1.73 sq M.predicted among non-blacks MDRD (S/P/Bld) [Vol rate/Area] 75 mL/min/{1.73_m2} Normal >60 [facility] Comment on above: Result Comment: Non- GFR Calc Performed By: #### L 500.2500, L400.0001, L100.0500 ####[facility] [address] [place], [address] Glucose [Mass/Vol] 99 mg/dL Normal 74-106 [facility] Comment on above: Performed By: #### L 500.2500, L400.0001, L100.0500 ####[facility] [address] [place], [address] Potassium [Moles/Vol] 3.9 mmol/L Normal 3.5-5.1 [facility] Comment on above: Performed By: #### L 500.2500, L400.0001, L100.0500 ####[facility] [address] [place], [address] Sodium [Moles/Vol] 138 mmol/L Normal 136-145 [facility] Comment on above: Performed By: #### L 500.2500, L400.0001, L100.0500 ####[facility] [address] [place], [address] Urea nitrogen [Mass/Vol] 18 mg/dL Normal 7-18 [facility] Comment on above: Performed By: #### L 500.2500, L400.0001, L100.0500 ####[facility] [address] [place], [address] CBC-Complete Blood Cnt No Di ffon 12-12-2024 Erythrocyte distribution width (RBC) [Ratio] 11.9 % Normal 11.6-14.6 [facility] Comment on above: Performed By: #### L 500.2500, L400.0001, L100.0500 ####[facility] [address] [place], [address] Hematocrit (Bld) [Volume fraction] 38.0 % Normal 37-47 [facility] Comment on above: Performed By: #### L 500.2500, L400.0001, L100.0500 ####[facility] [address] [place], [address] Hemoglobin (Bld) [Mass/Vol] 12.3 g/dL Normal 12.0-15.0 [facility] Comment on above: Performed By: #### L 500.2500, L400.0001, L100.0500 ####[facility] [address] [place], [address] MCH (RBC) [Entitic mass] 30.6 pg Normal 27.0-32.0 [facility] Comment on above: Performed By: #### L 500.2500, L400.0001, L100.0500 ####[facility] [address] [place], [address] MCHC (RBC) [Mass/Vol] 32.4 g/dL Normal 32-36 [facility] Comment on above: Performed By: #### L 500.2500, L400.0001, L100.0500 ####[facility] [address] [place], [address] MCV (RBC) [Entitic vol] 94.5 fL Normal 81-99 [facility] Comment on above: Performed By: #### L 500.2500, L400.0001, L100.0500 ####[facility] [address] [place], [address] Platelet mean volume (Bld) [Entitic vol] 10.0 fL Normal 6.2-12.0 [facility] Comment on above: Performed By: #### L 500.2500, L400.0001, L100.0500 ####[facility] [address] [place], [address] Platelets (Bld) [#/Vol] 223 10*3/uL Normal 150-450 [facility] Comment on above: Performed By: #### L 500.2500, L400.0001, L100.0500 ####[facility] [address] [place], [address] RBC (Bld) [#/Vol] 4.02 10*6/uL Low 4.2-5.4 [facility] Comment on above: Performed By: #### L 500.2500, L400.0001, L100.0500 ####[facility] [address] [place], [address] RDW SD 41.7 fl Normal 35.1-43.9 [facility] Comment on above: Performed By: #### L 500.2500, L400.0001, L100.0500 ####[facility] [address] [place], [address] WBC (Bld) [#/Vol] 7.1 10*3/uL Normal 4.4-11.0 [facility] Comment on above: Performed By: #### L 500.2500, L400.0001, L100.0500 ####[facility] [address] [place], [address] Cardiology Visit Reporton Cardiology Visit Report [facility] [address] [place] [address] OFFICE VISIT Date of Service: 12/12/24 MR#: [id number] Acct: [id number] Name: CHANTEL STACY Rep #: [id number] : 1950 Provider: REDDY healy Age/Sex: 74/F [place] [facility] [place] Status: Signed HPI HPI History of Present Illness Details: CHANTEL STACY, is a 74 F who presents to the office today for a follow-up visit. She has a history of Vbhze-Gkwsnckpf-Ltxwi syndrome status post ablation in 2002. 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 In February 2013, she had RV ICD lead capped and replaced at [facility] with Dr. Islas. She denies chest, arm, jaw, or neck discomfort. She states shortness of breath with exertion that she attributes to her sinus issues. She denies symptoms of shortness of breath at rest, orthopnea, PND, sudden weight gain, or bilateral lower extremity edema. She denies chronic cough. She states unchanged palpitations approximately twice a month associated with brief lightheadedness. She denies dizziness, near syncope, or syncopal episodes. She denies claudication issues. She denies fever or chills. She denies blood in urine, blood in stool, or epistaxis. She denies myalgia. She continues with fatigue. Her exercise tolerance is stable. She had her ICD interrogated today. Intake Vital Signs 10/12/24 09:25 12/12/24 13:41 Height 5 ft 4 in 5 ft 4 in Weight: 111 lb BMI 19.0 BP 113/64 Blood Pressure Location Lt brachial Position Sitting Respiration 16 Pulse 80 Pulse Source NIBP Intake Visit Reasons: Update H+P/ See Christina @ 2 Call Centre Supervisor Required: No Is patient in pain?: No Allergies vancomycin Adverse Reaction (Verified 12/12/24 13:46) itchy scalp cobweb on face Medications ???Medication ???Instructions ???Recorded ???Confirmed ???Type furosemide 40 mg tablet (Lasix) 40 mg PO .PRN PRN edema shortness 07/28/21 12/12/24 Rx of breath #90 tabs carvedilol 25 mg tablet (Coreg) 25 mg PO BID #180 tabs 09/02/24 12/12/24 Rx lisinopril 10 mg tablet 10 mg PO DAILY Changed back to 09/02/24 12/12/24 Rx Lisinopril per pt request. #90 tabs acetaminophen 500 mg capsule 1,000 mg PO Q6H PRN 12/12/24 12/12/24 History aspirin 81 mg tablet,delayed 81 mg PO QDAY 12/12/24 12/12/24 History release (Adult Low Dose Aspirin) nitrofurantoin 100 mg PO BID 5 days #10 caps 12/12/24 12/12/24 Rx monohydrate/macrocrystals 100 mg capsule (Macrobid) tiotropium 2.5 mcg-olodaterol 2.5 2 puff inhalation QDAY 12/12/24 12/12/24 History mcg/actuation mist for inhalation (Stiolto Respimat) Ejection fraction %: 20 Have you fallen in the past year?: No PFSH Medical History Non-ischemic cardiomyopathy Nonsustained ventricular tachycardia Chronic systolic (congestive) heart failure Arthritis Nicotine dependence Lipoma of arm Multiple thyroid nodules Thyroid disorder IBS (irritable bowel syndrome) Knsxm-Jgapfwigw-Fiauk (WPW) syndrome Abdominal pain Back problem Surgical History History of hysterectomy History of left heart catheterization (10/2003) History of implantable cardiac defibrillator (ICD) (07/28/11) S/P thyroid biopsy ( 05/2018) S/P angioplasty History of cardiac radiofrequency ablation (10/2003) S/P tonsillectomy Family History Mother Arthritis Asthma Brother Brain cancer Grandmother Arthritis Social History (Updated 12/12/24 @ 13:48 by Tanna Joy) Smoking Status: Current every day smoker tobacco type: cigarettes alcohol intake: current alcohol intake frequency: holidays/special occasions only substance use type: does not use caffeine: Yes Type: carbonated beverages Number of servings: 2 frequency: does not exercise seatbelt use: always ROS Const Const: Negative for fatigue or weakness Eyes Eyes: Negative for change in vision ENT ENT: Negative for dizziness or balance problems Cardio Chest Pain: No Palpitations: No Edema: None Muscle aches with walking: None Resp Respiratory: Negative for SOB with activity, SOB at rest or SOB orthopnea SOB lying down GI GI: Negative nausea or heartburn : Negative for hematuria or frequent nighttime urination/ nocturia Musc Musc: Negative for balance problems Skin Skin: Negative non-healing lesions or rash Neuro Neuro: Negative for dizziness, lightheadedness, near syncope, syncope or weakness Endo Endo: Negative for fatigue Allergy Allergy/Immunology: Negative for rash Cardiology Exam Const Appearance: cooperative, healthy appearing, comfortable and no acute distress Nutritional Appearance: average body pastor (more content not included)... Normal [facility] Pacemaker Checkon 12-12-2024 Pacemaker Check [facility] [address] [place], [place] [address] Pacemaker Check Date of Service: 12/12/24 1358 MR#: [id number] Acct: [id number] Name: CHANTEL STACY Rep #: [id number] : 1950 From: Bea Gresham Age/Sex: 74/F [place] [facility] [place] Status: Signed Billing Codes Nurse, Teaching, Wound Ck (no charge): Yes (Instructions for generator change) 12/12/24 1358 Date Bea Gresham Cosigner Signature: Date (if applicable) CC: Normal [facility] Urinalysis, Completeon 12-12 CA OX CRYSTAL 1+ /hpf Normal [facility] Comment on above: Order Comment: COLLE CTOR TO SPECIFY Performed By: #### L 500.2500, L400.0001, L100.0500 ####[facility] [address] [place], [address] CAST,FINE GRAN 0-5 SEEN Normal 0-5 [facility] Comment on above: Order Comment: COLLE CTOR TO SPECIFY Performed By: #### L 500.2500, L400.0001, L100.0500 ####[facility] [address] [place], [address] BACTERIA RARE Normal None Seen [facility] Comment on above: Order Comment: COLLE CTOR TO SPECIFY Performed By: #### L 500.2500, L400.0001, L100.0500 ####[facility] [address] [place], [address] EPI,SQUAMOUS 10-25 SEEN Normal 5-10 [facility] Comment on above: Order Comment: COLLE CTOR TO SPECIFY Performed By: #### L 500.2500, L400.0001, L100.0500 ####[facility] [address] [place], [address] WBC 0-5 SEEN Normal 0-5 [facility] Comment on above: Order Comment: COLLE CTOR TO SPECIFY Performed By: #### L 500.2500, L400.0001, L100.0500 ####[facility] [address] [place], [address] Mucus Ql (Urine sed) 0 SEEN Normal [facility] Comment on above: Order Comment: COLLE CTOR TO SPECIFY Performed By: #### L 500.2500, L400.0001, L100.0500 ####[facility] [address] [place], [address] RBC 0 SEEN Normal 0-5 [facility] Comment on above: Order Comment: COLLE CTOR TO SPECIFY Performed By: #### L 500.2500, L400.0001, L100.0500 ####[facility] [address] [place], [address] Pacemaker Checkon 10-29-2024 Pacemaker Check [facility] [address] [place] [address] Pacemaker Check Date of Service: 10/29/24 1601 MR#: [id number] Acct: [id number] Name: CHNATEL STACY Rep #: [id number] : 1950 From: Bea Gresham Age/Sex: 74/F [place] [facility] [place] Signed Billing Codes ICD Device Billin ICD Dev Prog Eval, Single Assessment and Plan Assessment and Plan (1) History of implantable cardiac defibrillator (ICD): Status: Chronic Comment: 04/10/2006 and 07/28/2011 RV lead replacement 02/20/19 (2) Non-ischemic cardiomyopathy: Status: Chronic (3) Nonsustained ventricular tachycardia: Status: Chronic Comment: Monomorphic ventricular tachycardia (4) Chronic systolic (congestive) heart failure: Status: Chronic (5) 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/p RFA 2002 Orders: Orders CBC-Complete Blood Cnt No Diff Today I42.8 - Other cardiomyopathies, I47.2 - Ventricular tachycardia, I50.22 - Chronic systolic (congestive) heart failure Basic Metabolic Profile (BMP) Today I42.8 - Other cardiomyopathies, I45.6 - Pre-excitation syndrome, I47.2 - Ventricular tachycardia, I50.22 - Chronic systolic (congestive) heart failure Urinalysis, Complete Today I42.8 - Other cardiomyopathies, I45.6 - Pre-excitation syndrome, I47.2 - Ventricular tachycardia, I50.22 - Chronic systolic (congestive) heart failure Pacemaker Generator Change 12/19/24 I42.8 - Other cardiomyopathies, I45.6 - Pre-excitation syndrome, I47.2 - Ventricular tachycardia, I50.22 - Chronic systolic (congestive) heart failure 10/29/24 1602 Date Bea Raber Delvis Signature: Date (if applicable) CC: Normal [facility] PET/CT Tumor Base -Thigh [facility] 10-22-2024 PET/CT Tumor Base -Thigh [facility] [address] [place] [address] PET/CT Tumor Base -Thigh Init MR#: [id number] Acct: [id number] Name: CHANTEL STACY Rep #: [id number] : 1950 F 74 From: Edmar Guillory PCP: Dr. Abraham Bahena MD Status: [facility] Study: PET/CT Tumor Base -Thigh Init Date of Exam: Exam# [id number] Ordering Dr: Abraham Bahena MD [id number] EXAMINATION: FDG-PET/CT ? INDICATIONS: 74-year-old female with a history of pulmonary nodularity. ? COMPARISON EXAMINATION: Low dose CT of the chest report dated 10/14/2024. ? INDEX LESION SIZE SUV INTERPRETATION Right mid lateral lung field, right lower lobe ? 2.3 max Quantitative criteria for viable neoplasm are not fulfilled, sequential radiologic investigation recommended ? TECHNIQUE: Following the intravenous administration of 14.02 mCi of F-18 deoxyglucose via the left antecubital fossa, multiplanar image acquisitions of the head, neck, chest, abdomen and pelvis to the level of the midthigh, obtained at one-hour post radiopharmaceutical administration contemporaneously interpreted with the current CT of the chest, abdomen and pelvis dated 10/22/[address] of the chest report dated 10/14/2024 via coregistration reveal: ? SERUM GLUCOSE LEVEL:? 101 mg/dL? HEIGHT:?? 64 inches WEIGHT:?? 114 pounds ? FINDINGS: ? HEAD/NECK:? There is no evidence of abnormal increased glucose metabolism in the pharyngeal mucosal space, parapharyngeal space, oropharynx, bilateral-lateral and anterior neck, hypopharynx and distribution of the larynx. ? The visualized portion of the cerebral cortical-subcortical structures demonstrate symmetric and preserved glucose metabolism. ? CHEST:? Facilitated FDG concentration is noted in the right mid posterior lung zone, right lower lobe. The calculated standard uptake value is 2.3. ? CT of the chest demonstrates the following anatomic characteristics: Atherosclerotic calcification is defined in the thoracic aorta without evidence of dilatation, aneurysm formation. Coronary artery calcification is observed. Ventricular pacemaker placement is defined. There are no additional parenchymal densities-nodules defined in the right and left hemithorax with quantitatively significant increased FDG uptake. ? ABDOMEN/PELVIS:? Normal physiologic distribution of the radiopharmaceutical is identified in the hepatic (3.0) and splenic parenchyma, both renal units, urinary bladder, and visualized intestinal tract. The left lobe of the hepatic parenchyma is prominent in size. There is a Sharad''s lobe.? Diffuse intestinal tract is identified in all four quadrants of the abdominal-pelvic mesentery. ? CT of the abdomen and pelvis is remarkable for the following: Multiple calcified gallstones are defined. Atherosclerotic calcification is defined in the abdominal aorta without evidence of dilatation, aneurysm formation. Abdominal-pelvic arterial calcification is observed. Calcified phlebolith formation is noted in the left lower hemipelvis.? Occasional colonic diverticula are noted. ? SKELETAL:? Lower thoracic and lumbar scoliosis is defined. There is no evidence of quantitatively significant enhanced glucose metabolism on meticulous inspection of the appendicular and axial skeletal structures. ? Degenerative changes defined in the thoracic and lumbar spine demonstrate no evidence of increased glucose metabolism. There are no sclerotic, mixed sclerotic-lytic, or primarily lytic changes defined in the axial skeletal structures with evidence of increased FDG uptake. ? PET/PET/CT Tumor Base -Thigh Init IMPRESSION: 1. NEGATIVE EXAMINATION. There is no definitive quantitative scintigraphic evidence of viable neoplasm. 2. Enhanced tracer uptake noted in the right mid posterior lung field, right lower lobe does not fulfill quantitative criteria for neoplastic transformation. (Maggie et al, Journal of Nuclear Medicine, 32:1, 1990). 3. Anatomic stability may be ensured with repeat FDG-PET CT of the thorax in 3-6 months if clinically indicated. (Kali, Seminars in Thoracic and Cardiovascular surgery, 14:292, 2002). Electronic Signature Edmar Rowley D.O. Accurate Quantification of SUVs for this report are calculated using the exclusive [employer]. ([place].S. Patent No. [id number] [phone] B2 [phone] [place] patent [id number] [id number] [id number]). Standardization and correction of the FDG SUV metric via [employer] technology allow for vendor non-specific objective quantitative examination comparison and optimization of the sensitivity and specificity of the FDG PET-CT examination. [email or web address] Electronically Signed: Edmar Rowley DO at 21:57 EST Reading Location ID and State: 795 / [place] T (more content not included)... Normal [facility] Low Dose CT Lung Screeningon 10-14-[address] Lung Screening [facility] [address] [place], [place] [id number] Low Dose CT Lung Screening MR#: [id number] Acct: [id number] Name: CHANTEL STACY Rep #: [id number] : 1950 F 74 From: Smith Red MD PCP: Dr. Abraham Bahena MD Status: [facility] Study: Low Dose CT Lung Screening Date of Exam: 10/14 Exam# [id number] Ordering Dr: Abraham Bahena MD [id number] STUDY: LOW DOSE CT LUNG CANCER SCREENING REASON FOR EXAM: Female, 74 years old. current smoker, 1ppd x 56 years RADIATION DOSAGE (If Supplied By Facility): CTDIvol = ( 2.01 ) mGy, DLP = ( 64.94 ) mGycm TECHNIQUE: No contrast was administered. Low dose technique was utilized (average mAS-38 and kVp 120). 1.25 mm axial source images with a slice interval of 1.25-mm were reconstructed in lung windows. 2.5 mm axial source images with a slice interval of 2.5-mm were reconstructed in lung windows. 5.0 mm axial source images with a slice interval of 5.0-mm were reconstructed in soft tissue windows. COMPARISON: None. FINDINGS: Lung windows show underlying emphysema with bleb formation in both lung macias. There are chronic interstitial changes with evidence of chronic bronchitis. No organized infiltrate or effusion. There is a suspicious spiculated noncalcified 1.5 x 1.9cm nodule in the right lower lobe on axial image 107. This needs further evaluation with PET/CT. There are some other ground glass densities in the right lower lobe as well. Soft tissue windows show a low density 1cm right thyroid lobe nodule that should be evaluated with ultrasound. No suspicious adenopathy. Peripheral calcifications noted in the thoracic aorta. There are calcified coronary vessels. Pacer leads seen along the base of the heart. Bony structures show degenerative change. Limited cuts of the upper abdomen do not show a suspicious abnormality CT/Low Dose CT Lung Screening IMPRESSION: Lung-RADS category 4B - Chest CT with or without contrast, PET/CT and/or tissue sampling can be obtained depending on the probability of malignancy and comorbidities. IMPORTANT NOTES FOR USE: ACR Lung-RADS Version 1.1 Assessment Categories Release Date: 2019 Category: Coded 0-4 bases on nodule(s) with highest degree of suspicion. Negative screen is defined as categories 1 and 2; a positive screen is defined as categories 3 and 4. Category 3 and 4A nodules that are unchanged on interval CT should be coded as category 2, and individuals returned to screening in 12 months. Category 4X: Category 3 or 4 nodules with additional imaging findings that increase the suspicion of lung cancer, such as spiculation, GGN that doubles in size in 1 year, enlarged lymph notes, etc. Category Modifiers: S (significant finding unrelated to lung cancer) Electronically Signed: Maurice Red MD at 10:27 EST , CC: Dr. Abraham Bahena MD Reimbursement Counselor: Signed Normal [facility] Urine Cultureon 10-14-2024 URC Culture exhibits no growth. Normal [facility] Comment on above: Performed By: #### L 400.0001, M100.2200 #### [facility] [address] [place], [address] Office Visit Reporton 2023 Office Visit Report [facility] [address] [place] [address] OFFICE VISIT Date of Service: 10/12/24 MR#: [id number] Acct: [id number] Patient: CHANTEL STACY Rep #: [id number] : 1950 Provider: AYANA Mcginnis Age/Sex: 74/F [place] [facility] [place] Status: Signed Intake Vital Signs 09/11/24 09:28 10/12/24 09:25 Height 1.63 m 1.63 m Weight: 51.71 kg 51.823 kg BMI 19.5 19.5 BP 136/86 H 120/60 Blood Pressure Location Lt brachial Position Sitting Respiration 16 Pulse 81 80 Pulse Source Monitor Temp 98.1 F 98.4 F Temp Source Oral Oral Pulse Oximetry (%) 98 97 Oxygen Delivery Method room air room air Intake Visit Reasons: KIDNEY INFECTION Chief Complaint: kidney infection Accompanied by: Self Allergies vancomycin Adverse Reaction (Verified 10/12/24 09:26) itchy scalp cobweb on face Medications ???Medication ???Instructions ???Recorded ???Confirmed ???Type furosemide 40 mg tablet (Lasix) 40 mg PO .PRN PRN edema shortness 07/28/21 10/12/24 Rx of breath #90 tabs acetaminophen 500 mg capsule 1,000 mg PO ONCE 06/29/22 10/12/24 History aspirin 81 mg tablet,delayed 81 mg PO QDAY PRN 06/29/22 10/12/24 History release (Adult Low Dose Aspirin) carvedilol 25 mg tablet (Coreg) 25 mg PO BID #180 tabs 09/02/24 10/12/24 Rx lisinopril 10 mg tablet 10 mg PO DAILY Changed back to 09/02/24 10/12/24 Rx Lisinopril per pt request. #90 tabs cefdinir 300 mg capsule 300 mg PO BID #14 caps 10/12/24 10/12/24 Rx Have you fallen in the past year?: No Nurse's Note: Patient has a burning sensation, pressure and pain. Patient thinks she passed a kidney stone. [facility] Medical History Non-ischemic cardiomyopathy Nonsustained ventricular tachycardia Chronic systolic (congestive) heart failure Arthritis Nicotine dependence Lipoma of arm Multiple thyroid nodules Thyroid disorder IBS (irritable bowel syndrome) Llawj-Vxvamrsqq-Uxgdu (WPW) syndrome Abdominal pain Back problem Surgical History History of hysterectomy History of left heart catheterization (10/2003) History of implantable cardiac defibrillator (ICD) (07/28/11) S/P thyroid biopsy ( 05/2018) S/P angioplasty History of cardiac radiofrequency ablation (10/2003) S/P tonsillectomy Family History Mother Arthritis Asthma Brother Brain cancer Grandmother Arthritis Social History Smoking Status: Current every day smoker tobacco type: cigarettes alcohol intake: current alcohol intake frequency: holidays/special occasions only substance use type: does not use caffeine: Yes Type: carbonated beverages Number of servings: 2 frequency: does not exercise seatbelt use: always HPI HPI Chief Complaint: kidney infection Details: CHANTEL STACY, is a 74 F who presents to the office today for kidney infection. Pt has had symptoms since monday. She has flank pain, dysuria, increased urinary frequency and urgency, nausea, no vomiting. No fever/chills. She thinks she passed a stone th night. She had some sand in the toilet. She continues to have symptoms despite passing the stone. ROS Const Constitutional: No chills, fatigue or fever(s) Genitourinary-Female: Positive for burning urination, urinary frequency and urinary urgency Musc Musculoskeletal: Positive for other (flank pain) Endo Endocrine: No fatigue Exam Const General: cooperative, healthy appearing, comfortable, no acute distress, well developed and well groomed Nutritional Appearance: average body habitus and well nourished Orientation: alert, awake and oriented x3 Resp Effort Inspection: normal respiratory effort, able to speak in complete sentences, symmetric chest movement and not labored Auscultation: Bilateral: Clear to Auscultation Cardio Rate: regular rate Rhythm: regular rhythm Heart Sounds: no murmurs Other: + cva tednerness BL Results POC Urinalysis Dip (Clinic) Office Urine Color KWESI Last Edit by Poonam Lara MA on 10/12/24 09:32 Office Urine Clarity Clear Last Edit by Poonam Lara MA on 10/12/24 09:32 Office Urine Glucose Negative Last Edit by Poonam Lara MA on 10/12/24 09:32 Office Urine Ketones Negative Last Edit by Poonam Lara MA on 10/12/24 09:32 Off Ur Spec [place] 1.015 Last Edit by Poonam Lara MA on 10/12/24 09:32 Office Urine pH 5.0 Last Edit by Poonam Lara MA on 10/12/24 09:32 Office Urine Bilirubin Small (1+) Last Edit by Poonam Lara MA on 10/12/24 09:32 Office Urine Urobilinogen 0.2 mg/dL Last Edit by Poonam Lara MA on 10/12/24 09:32 Office Urine Blood Trace Last Edit by Poonam Lara MA on 10/12/24 09:32 Office (more content not included)... Normal [facility] Urinalysis, Completeon 10-12 EPI,SQUAMOUS 0-5 SEEN Normal 5-10 [facility] Comment on above: Order Comment: JERI CTOR TO SPECIFY Performed By: #### L 400.0001, M100.2200 #### [facility] [address] [place], [address] BACTERIA 0 SEEN Normal None Seen [facility] Comment on above: Order Comment: COLLE CTOR TO SPECIFY Performed By: #### L 400.0001, M100.2200 #### [facility] [address] [place], [address] Mucus Ql (Urine sed) 0 SEEN Normal [facility] Comment on above: Order Comment: JERI CTOR TO SPECIFY Performed By: #### L 400.0001, M100.2200 #### [facility] [address] [place], [address] RBC 0 SEEN Normal 0-5 [facility] Comment on above: Order Comment: JERI CTOR TO SPECIFY Performed By: #### L 400.0001, M100.2200 #### [facility] [address] [place], [address] WBC 0 SEEN Normal 0-5 [facility] Comment on above: Order Comment: JERI CTOR TO SPECIFY Performed By: #### L 400.0001, M100.2200 #### [facility] [address] [place], [address] Urgent Care Visit Reporton 1 Urgent Care Visit Report [facility] [address], [address] [place] [address] OFFICE VISIT Date of Service: 09/11/24 MR#: [id number] Acct: [id number] Name: CHANTEL STACY Rep #: [id number] : 1950 Provider: AYANA Maddox Age/Sex: 74/F [place] [facility] [place] Status: Signed Intake Vital Signs 09/02/24 08:50 09/11/24 09:28 Height 5 ft 4 in 5 ft 4 in Weight: 114 lb BMI 19.5 BP 136/86 H Blood Pressure Location Lt brachial Position Sitting Respiration 16 Pulse 81 Pulse Source Monitor Temp 98.1 F Temp Source Oral Pulse Oximetry (%) 98 Oxygen Delivery Method room air Intake Visit Reasons: Sinus infection Chief Complaint: RUNNY NOSE POST NASAL DRAINAGE SOB SX 2 WEEKS Call Centre Supervisor Required: No Accompanied by: Self Is patient in pain?: No Allergies vancomycin Adverse Reaction (Verified 09/11/24 09:30) itchy scalp cobweb on face Medications ???Medication ???Instructions ???Recorded ???Confirmed ???Type furosemide 40 mg tablet (Lasix) 40 mg PO .PRN PRN edema shortness 07/28/21 09/11/24 Rx of breath #90 tabs acetaminophen 500 mg capsule 1,000 mg PO ONCE 06/29/22 09/11/24 History aspirin 81 mg tablet,delayed 81 mg PO QDAY PRN 06/29/22 09/11/24 History release (Adult Low Dose Aspirin) carvedilol 25 mg tablet (Coreg) 25 mg PO BID #180 tabs 09/02/24 09/11/24 Rx lisinopril 10 mg tablet 10 mg PO DAILY Changed back to 09/02/24 09/11/24 Rx Lisinopril per pt request. #90 tabs amoxicillin 875 mg-potassium 1 tab PO BID #20 tabs 09/11/24 09/11/24 Rx clavulanate 125 mg tablet Have you fallen in the past year?: No Nurse's Note: runny nose post nasal drainage SOB cough sx for 2 weeks pt declined covid and flu testing for today visit [facility] Medical History Non-ischemic cardiomyopathy Nonsustained ventricular tachycardia Chronic systolic (congestive) heart failure Arthritis Nicotine dependence Lipoma of arm Multiple thyroid nodules Thyroid disorder IBS (irritable bowel syndrome) Bdghw-Ehypcuehv-Qxpic (WPW) syndrome Abdominal pain Back problem Surgical History History of hysterectomy History of left heart catheterization (10/2003) History of implantable cardiac defibrillator (ICD) (07/28/11) S/P thyroid biopsy ( 05/2018) S/P angioplasty History of cardiac radiofrequency ablation (10/2003) S/P tonsillectomy Family History Mother Arthritis Asthma Brother Brain cancer Grandmother Arthritis Social History Smoking Status: Current every day smoker tobacco type: cigarettes alcohol intake: current alcohol intake frequency: holidays/special occasions only substance use type: does not use caffeine: Yes Type: carbonated beverages Number of servings: 2 frequency: does not exercise seatbelt use: always HPI HPI Chief Complaint: RUNNY NOSE POST NASAL DRAINAGE SOB SX 2 WEEKS Details: CHANTEL STACY, is a 74 F who presents to the office today for initial evaluation at the [facility] for approximately 2-week history of progressively worsening L>R facial pressure/congestion with purulent postnasal drip/cough. SOB episode at home on 09/09/2024, stating she checked her pulse ox to amatory with her 's pulse ox and it read 82% therefore she utilized her 's portable oxygen when for several minutes and improved thereafter. No complaints of fever, chills, myalgias, fatigue, runny nose, or nausea/vomiting/diarrhea. Currently no complaints of chest pain/shortness of breath/dyspnea on exertion. No close contacts with similar complaints. No other associated symptoms and no other alleviating/aggravating factors. ROS Const Constitutional: No other (as above) Exam Const General: cooperative, healthy appearing and no acute distress Nutritional Appearance: average body habitus Orientation: alert, awake and oriented x3 HENMT Head: normal to inspection Ears: hearing grossly normal bilaterally, external ears normal, TM's normal bilaterally and EAC's normal Nose: external nose normal, nares normal, septum normal and no nasal discharge Face and sinus: normal facial exam, sinuses nontender (Though bilateral maxillary fullness to palpation) and face symmetric Mouth: oral mucosae normal, lip normal, tongue normal and oropharynx normal Throat: posterior oropharynx normal, tonsils normal, uvula midline and postnasal drainage (Purulent) Eyes General: appearance normal, both eyes and all related structures Neck Neck: normal visual inspection, full ROM, no meningeal signs, supple and lymphadenopathy (Bilateral anterior cervical lymph node swelling/tender to palpation) Ne (more content not included)... Normal [facility] Cardiology Visit Reporton Cardiology Visit Report [facility] [address] [place] [address] OFFICE VISIT Date of Service: 09/02/24 MR#: [id number] Acct: [id number] Name: CHANTEL STACY Rep #: [id number] : 1950 Provider: REDDY healy Age/Sex: 74/F [place] [facility] [place] Status: Signed [facility] History of Present Illness Details: CHANTEL STACY, is a 74 F who presents to the office today for a follow-up visit. She has a history of Rxtkp-Vouhclcus-Yjqwk syndrome status post ablation in 2002. 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 In February 2013 she had RV ICD lead capped and replaced at [facility] with Dr. Islas. Her ICD was interrogated today She denies chest, arm, jaw, or neck discomfort. She states shortness of breath with exertion that she attributes to her sinus issues. She denies symptoms of shortness of breath at rest, orthopnea, PND, sudden weight gain, or bilateral lower extremity edema. She denies chronic cough. She states unchanged palpitations approximately twice a month associated with brief lightheadedness. She denies dizziness, near syncope, or syncopal episodes. She denies claudication issues. She denies fever or chills. She denies blood in urine, blood in stool, or epistaxis. She denies myalgia. She continues with fatigue. Her exercise tolerance is stable. She had her ICD interrogated today. Intake Vital Signs 02/29/24 14:30 04/29/24 11:18 09/02/24 08:49 09/02/24 08:50 Height 5 ft 4 in 5 ft 4 in 5 ft 4 in 5 ft 4 in Weight: 112 lb 114 lb BMI 19.2 19.5 BP 128/86 H 125/77 H Blood Pressure Location Lt brachial Lt brachial Position Sitting Sitting Respiration 16 18 Pulse 87 74 Pulse Source Monitor Monitor Temp 99.1 F Pulse Oximetry (%) 97 98 Oxygen Delivery Method room air Intake Visit Reasons: 6 M FU ICD f/u @ 9AM Call Centre Supervisor Required: No Is patient in pain?: No Allergies vancomycin Adverse Reaction (Verified 09/02/24 08:50) itchy scalp cobweb on face Medications ???Medication ???Instructions ???Recorded ???Confirmed ???Type furosemide 40 mg tablet (Lasix) 40 mg PO .PRN PRN edema shortness 07/28/21 09/02/24 Rx of breath #90 tabs acetaminophen 500 mg capsule 1,000 mg PO ONCE 06/29/22 09/02/24 History aspirin 81 mg tablet,delayed 81 mg PO QDAY PRN 06/29/22 09/02/24 History release (Adult Low Dose Aspirin) carvedilol 25 mg tablet (Coreg) 25 mg PO BID #180 tabs 09/02/24 09/02/24 Rx lisinopril 10 mg tablet 10 mg PO DAILY Changed back to 09/02/24 09/02/24 Rx Lisinopril per pt request. #90 tabs Have you fallen in the past year?: No PFSH Medical History Non-ischemic cardiomyopathy Nonsustained ventricular tachycardia Chronic systolic (congestive) heart failure Arthritis Nicotine dependence Lipoma of arm Multiple thyroid nodules Thyroid disorder IBS (irritable bowel syndrome) Pyrts-Wtlyurozs-Eeoeg (WPW) syndrome Abdominal pain Back problem Surgical History History of hysterectomy History of left heart catheterization (10/2003) History of implantable cardiac defibrillator (ICD) (07/28/11) S/P thyroid biopsy ( 05/2018) S/P angioplasty History of cardiac radiofrequency ablation (10/2003) S/P tonsillectomy Family History Mother Arthritis Asthma Brother Brain cancer Grandmother Arthritis Social History Smoking Status: Current every day smoker tobacco type: cigarettes alcohol intake: current alcohol intake frequency: holidays/special occasions only substance use type: does not use caffeine: Yes Type: carbonated beverages Number of servings: 2 frequency: does not exercise seatbelt use: always ROS Const Const: Negative for fatigue, weakness, headache(s), daytime sleepiness or difficulty sleeping ENT ENT: Negative for headache(s), dizziness or Nosebleed/epistaxis Cardio Chest Pain: No Palpitations: No Edema: None Muscle aches with walking: None Resp Respiratory: Positive for SOB with activity (with sinus drainage); Negative for SOB at rest, SOB orthopnea SOB lying down or Cough GI GI: Negative nausea, vomiting or heartburn : Negative for hematuria or frequent nighttime urination/ nocturia Musc Musc: Negative for muscle aches/ myalgia Skin Skin: Negative non-healing lesions or rash Neuro Neuro: Negative for dizziness, lightheadedness, near syncope, headache(s) or weakness Endo Endo: Negative for fatigue Allergy Allergy/Immunology: Negative for rash Cardiology Exam Const Appearance: cooperative, healthy appearing, comfortable and no acute (more content not included)... Normal [facility] Pacemaker Checkon 09-02-2024 Pacemaker Check [facility] [address] [facility] [address] [place] [address] Pacemaker Check Date of Service: 09/02/24 145 MR#: [id number] Acct: [id number] Name: CHANTEL STACY Rep #: [id number] : 1950 From: Bea Gresham Age/Sex: 74/F [place] [facility] [place] Signed Billing Codes ICD Device Billin ICD Dev Prog Eval, Single Assessment and Plan Assessment and Plan (1) History of implantable cardiac defibrillator (ICD): Status: Chronic Comment: 04/10/2006 and 07/28/2011 RV lead replacement 02/20/19 (2) Non-ischemic cardiomyopathy: Status: Chronic (3) Nonsustained ventricular tachycardia: Status: Chronic Comment: Monomorphic ventricular tachycardia (4) Chronic systolic (congestive) heart failure: Status: Chronic 09/02/24 145 Date Bea Khannayessica Signature: Date (if applicable) CC: Normal [facility] Absolute lymphocyte countOrd ered By: Abraham Bahena on 03-20-2024 Lymphocytes Auto (Unsp spec) [#/Vol] 1.90 10*3/uL 0.83-4.51 [facility] Automated lymphocyte count a s percentage of total leukocytesOrdered By: Abraham Bahena on 03-20-2024 Lymphocytes/100 WBC Auto (Unsp spec) 28.2 % 19-41 [facility] Basophil percentageOrdered B y: Abraham Bahena on 03-20-2024 Basophils/100 WBC (Bld) 0.4 % 0-[address] [facility] Bilirubin [Mass/Vol] 0.40 mg/dL 0.20-1.00 [facility] Comment on above: For patients on eltr ombopag therapy, use of Dimension [place] TBIL is not recommended. Chloride [Moles/Vol] 108 mmol/L 98-107 [facility] Cholesterol [Mass/Vol] 239 mg/dL <200 [facility] Comment on above: <200 mg/dL Desirable 200-240 mg/dL Borderline >240 mg/dL High Risk Eosinophils/100 WBC (Bld) 2.1 % 0-5 [facility] Glucose [Mass/Vol] 88 mg/dL 74-106 [facility] Hemoglobin (Bld) [Mass/Vol] 12.3 g/dL 12.0-15.0 [facility] Monocytes/100 WBC (Bld) 7.3 % 0-[address] [facility] Neutrophils (Bld) [#/Vol] 4.1 10*3/uL 2.0-7.7 [facility] Neutrophils/100 WBC (Bld) 61.6 % 47-70 [facility] Potassium [Moles/Vol] 3.6 mmol/L 3.5-5.1 [facility] Protein [Mass/Vol] 6.9 g/dL 6.4-8.2 [facility] Sodium [Moles/Vol] 140 mmol/L 136-145 [facility] Triglyceride [Mass/Vol] 197 mg/dL <[address] [facility] Comment on above: The drugs N-Acetylcy steine and Metamizole may falsely depress this assay.Serum Triglycerides Reference Interval Normal <150 mg/dL Borderline high 150 - 199 mg/dL High 200 - 499 mg/dL Very High > or = 500 mg/dL WBC (Bld) [#/Vol] 6.7 10*3/uL 4.4-11.0 [facility] Determination of erythrocyte mean corpuscular volume (MCV)Ordered By: Abraham Bahena on 03-20-2024 MCV (RBC) [Entitic vol] 95.1 fL 81-[address] [facility] Erythrocyte distribution wid th ratioOrdered By: Abraham Bahena on 03-20-2024 Erythrocyte distribution width (RBC) [Ratio] 12.4 % 11.6-14.6 [facility] Erythrocyte distribution wid th standard deviationOrdered By: Abraham Bahena on 03-20-2024 Erythrocyte distribution width (RBC) [Entitic vol] 43.6 fL 35.1-43.9 [facility] Hematocrit Auto (Bld) [Volum e fraction]Ordered By: Abraham Bahena on 03-20-2024 Hematocrit (Bld) [Volume fraction] 38.7 % 37-47 [facility] Immature granulocytes/100 WB C Auto (Bld)Ordered By: Abraham Bahena on 03-20-2024 Immature granulocytes/100 WBC (Bld) 0.400 % 0.0-0.9 [facility] Comment on above: IG% - Immature Granu locytes (promyelocytes, myelocytes and metamyelocytes) > 1% indicates that a LEFT SHIFT is Present. Laboratory - Chemistry and C hemistry - challengeOrdered By: Abraham Bahena on 03-20-2024 Albumin/Globulin [Mass ratio] 1.0 {ratio} 0.9-2.4 [facility] ALP [Catalytic activity/Vol] 85 U/L 45-117 [facility] ALT [Catalytic activity/Vol] 15 U/L 13-56 [facility] Cholesterol in HDL [Mass/Vol] 73 mg/dL >40 [facility] Comment on above: The drugs N-Acetylcy steine and Metamizole may falsely depress this assay. Reference Range HDL <40 mg/dL Low HDL Cholesterol HDL >or= 60 mg/dL High HDL Cholesterol Cholesterol in LDL [Mass/Vol] 127 mg/dL 0-130 [facility] CO2 [Moles/Vol] 30.0 mmol/L 21.0-32.0 [facility] Globulin (S) [Mass/Vol] 3.5 g/dL 2.2-4.[address] [facility] Urea nitrogen/Creatinine [Mass ratio] 15.7 mg/mg 10-20 [facility] Laboratory - Hematology and Cell countsOrdered By: Abraham Bahena on 03-20-2024 MCH (RBC) [Entitic mass] 30.2 pg 27.0-32.0 [facility] MCHC (RBC) [Mass/Vol] 31.8 g/dL 32-36 [facility] Nucleated RBC/100 WBC (Bld) [Ratio] 0 % 0-5 [facility] Platelet mean volume (Bld) [Entitic vol] 10.4 fL 6.2-12.0 [facility] Platelets (Bld) [#/Vol] 218 10*3/uL 150-450 [facility] No Panel InformationOrdered By: Abraham Bahena on 03-20-2024 Estimated GFR (MDRD) Amer 95 mL/min >60 [facility] Comment on above: GFR Calc Estimated GFR (MDRD) Non-Af Amer 79 mL/min >60 [facility] Comment on above: Non- GFR Calc Thyroglobulin Antibody < 1.0 IU/mL 0.0-0.[address] [facility] Comment on above: Thyroglobulin Antibo dy measured by Rich CoulterMethodologyIt should be noted that the presence of thyroglobulinantibodies may not be pathogenic nor diagnostic, especiallyat very low levels. The assay psychiatric assistant has found thatfour percent of individuals without evidence of thyroiddisease or autoimmunity will have positive TgAb levels upto 4 IU/mL.Performed at: [facility] [id number] Director: Bibi Harris MD, Phone: [phone] at: [facility] [employer] [id number] Director: Kal Schulz PhD, Phone: [phone] Vitamin D 25-Hydroxy 22.5 ng/mL [facility] Comment on above: Vitamin D 25(OH) Sta tus Range Deficiency <20 ng/mL (50nmol/L) Insufficiency 20 - 30 ng/mL (50 - 75 nmol/L) Sufficiency 30 - 100 ng/mL (75 - 250 nmol/L) Toxicity >100 ng/mL (>250 nmol/L) VLDL Cholesterol 39 mg/dL 5-40 [facility] RBC Auto (Bld) [#/Vol]Ordere d By: Abraham Bahena on 03-20-2024 RBC (Bld) [#/Vol] 4.07 10*6/uL 4.2-5.4 [facility] Serum or plasma calcium devante urement (mass/volume)Ordered By: Abraham Bahena on 03-20-2024 Calcium [Mass/Vol] 9.2 mg/dL 8.5-10.1 [facility] Serum or plasma creatinine m easurement (mass/volume)Ordered By: Abraham Bahena on 03-20-2024 Creatinine [Mass/Vol] 0.76 mg/dL 0.55-1.02 [facility] Comment on above: The validity of the calculated GFR & GFRAA in patients over 70 years has not been determined. Clinical correlation is essential. Serum or plasma thyroid stim ulating hormone (TSH) measurement (units/volume)Ordered By: Abraham Bahena on 03-20-2024 TSH Qn 0.04 uIU/mL 0.358-3.74 [facility] Serum or plasma thyroperoxid ase antibody assay (units/volume)Ordered By: Abraham Bahena on 03-20-2024 TPO Ab Qn [IU]/mL 0-34 [facility] Serum or plasma urea nitroge n measurement (mass/volume)Ordered By: Abraham Bahena on 03-20-2024 Urea nitrogen [Mass/Vol] 12 mg/dL 7-18 [facility] Thin prep Papanicolaou smear with manual screeningOrdered By: Abraham Bahena on 03-20-2024 Thin prep Papanicolaou smear with manual screening 3.4 g/dL 3.2-5.0 [facility] Thin prep Papanicolaou smear with manual screening 17 U/L 15-37 [facility] Thin prep Papanicolaou smear with manual screening 2 5-15 [facility] Thin prep Papanicolaou smear with manual screening 0.89 ng/dL 0.76-1.46 [facility] Thyroid stimulating immunogl obulins detectionOrdered By: Abraham Bahena on 03-20-2024 Thyroid stimulating immunoglobulins Ql (S) <0.10 IU/L 0.00-0.55 [facility] Basophil percentageOrdered B y: Mikhail Benson on 11-22-2023 Basophil percentage 10-25 SEEN /hpf 0-5 [facility] Chloride [Moles/Vol] 104 mmol/L 98-107 [facility] Glucose [Mass/Vol] 98 mg/dL 74-106 [facility] Potassium [Moles/Vol] 3.5 mmol/L 3.5-5.1 [facility] Sodium [Moles/Vol] 138 mmol/L 136-145 [facility] WBC (Bld) [#/Vol] 10.2 10*3/uL 4.4-11.0 [facility] Bilirubin Test strip Ql (U)O rdered By: Mikhail Benson on 11-22-2023 Bilirubin Ql (U) 1 mg/dL Negative [facility] Comment on above: COLOR OF URINE MAY A FFECT DIPSTICK RESULTS. Blood erythrocytes count (nu mber/volume)Ordered By: Mikhail Benson on 11-22-2023 RBC (Bld) [#/Vol] 4.05 10*6/uL 4.2-5.4 [facility] Blood hemoglobin measurement (mass/volume)Ordered By: Mikhail Benson on 11-22-2023 Hemoglobin (Bld) [Mass/Vol] 12.5 g/dL 12.0-15.0 [facility] Blood platelet mean volumeOr dered By: Mikhail Benson on 11-22-2023 Platelet mean volume (Bld) [Entitic vol] 9.9 fL 6.2-12.0 [facility] Calcium oxalate crystals det ection in urine sediment by light microscopyOrdered By: Mikhail Benson on 11-22-2023 Calcium oxalate crystals LM Ql (Urine sed) 1+ /hpf [facility] Determination of erythrocyte mean corpuscular volume (MCV)Ordered By: Mikhail Benson on 11-22-2023 MCV (RBC) [Entitic vol] 95.6 fL 81-[address] [facility] Hematocrit Auto (Bld) [Volum e fraction]Ordered By: Mikhail Benson on 11-22-2023 Hematocrit (Bld) [Volume fraction] 38.7 % 37-47 [facility] Ketones Test strip Ql (U)Ord ered By: Mikhail Benson on 11-22-2023 Ketones Ql (U) 15 mg/dl Negative [facility] Laboratory - Chemistry and C hemistry - challengeOrdered By: Mikhail Benson on 11-22-2023 CO2 [Moles/Vol] 26.0 mmol/L 21.0-32.0 [facility] Urea nitrogen/Creatinine [Mass ratio] 28.9 mg/mg 10-20 [facility] Laboratory - Hematology and Cell countsOrdered By: Mikhail Benson on 11-22-2023 Erythrocyte distribution width (RBC) [Entitic vol] 43.7 fL 35.1-43.9 [facility] Erythrocyte distribution width (RBC) [Ratio] 12.4 % 11.6-14.6 [facility] MCH (RBC) [Entitic mass] 30.9 pg 27.0-32.0 [facility] Laboratory - Microbiology an d Antimicrobial susceptibilityOrdered By: Mikhail Benson on 11-22-2023 SARS-CoV-2 (COVID-19) RNA MILADIS+probe Ql (Unsp spec) SARS-CoV-2 (COVID 19) [facility] MCHC Auto (RBC) [Mass/Vol]Or dered By: Mikhail Benson on 11-22-2023 MCHC (RBC) [Mass/Vol] 32.3 g/dL 32-36 [facility] Mucus LM Ql (Urine sed)Order ed By: Mikhail Benson on 11-22-2023 Mucus Ql (Urine sed) RARE /hpf [facility] Nitrite Test strip Ql (U)Ord ered By: Mikhail Benson on 11-22-2023 Nitrite Ql (U) Negative Negative [facility] No Panel InformationOrdered By: Mikhail Benson on 11-22-2023 Estimated Creatinine Clearance Calc 45.39 ml/min [facility] Estimated GFR (MDRD) Amer 86 mL/min >60 [facility] Comment on above: GFR Calc Estimated GFR (MDRD) Non-Af Amer 71 mL/min >60 [facility] Comment on above: Non- GFR Calc Platelets bldOrdered By: Perry Benson on 11-22-2023 Platelets (Bld) [#/Vol] 232 10*3/uL 150-450 [facility] Protein Test strip Ql (U)Ord ered By: Mikhail Benson on 11-22-2023 Protein Ql (U) 30 mg/dl Negative [facility] Serum or plasma calcium devante urement (mass/volume)Ordered By: Mikhail Benson on 11-22-2023 Calcium [Mass/Vol] 8.8 mg/dL 8.5-10.1 [facility] Serum or plasma creatinine m easurement (mass/volume)Ordered By: Mikhail Benson on 11-22-2023 Creatinine [Mass/Vol] 0.83 mg/dL 0.55-1.02 [facility] Comment on above: The validity of the calculated GFR & GFRAA in patients over 70 years has not been determined. Clinical correlation is essential. Serum or plasma urea nitroge n measurement (mass/volume)Ordered By: Mikhail Benson on 11-22-2023 Urea nitrogen [Mass/Vol] 24 mg/dL 7-18 [facility] Squamous epithelial cells de tection in urine sediment by light microscopyOrdered By: Mikhail Benson on 11-22-2023 Epithelial cells.squamous LM Ql (Urine sed) 5-10 SEEN /hpf 5-10 [facility] Thin prep Papanicolaou smear with manual screeningOrdered By: Mikhail Benson on 11-22-2023 Thin prep Papanicolaou smear with manual screening 8 5-15 [facility] Urine blood detectionOrdered By: Mikhail Benson on 11-22-2023 RBC Ql (U) 25 /ul Negative [facility] RBC Ql (U) 0-5 SEEN /hpf 0-5 [facility] Urine clarityOrdered By: Perry Benson on 11-22-2023 Clarity (U) Sl. Cloudy Clear [facility] Urine color determinationOrd ered By: Mikhail Benson on 11-22-2023 Color (U) Yellow Yellow [facility] Urine glucose detectionOrder ed By: Mikhail Benson on 11-22-2023 Glucose Ql (U) Normal mg/dl Normal [facility] Urine leukocyte esterase det ection by dipstickOrdered By: Mikhail Benson on 11-22-2023 Leukocyte esterase Test strip Ql (U) 100 /ul Negative [facility] Urine pHOrdered By: Mikhail olmstead on 11-22-2023 pH (U) 5.0 [pH] 5.0 - 8.0 [facility] Urine sediment bacteria coun t by microscopy (number/high power field)Ordered By: Mikhail Benson on 11-22-2023 Bacteria LM.HPF (Urine sed) [#/Area] RARE /hpf None Seen [facility] Urine specific gravity measu rementOrdered By: Mikhail Benson on 11-22-2023 Specific gravity (U) [Rel density] 1.030 1.002-1.030 [facility] Urobilinogen Auto test strip Ql (U)Ordered By: Mikhail Benson on 11-22-2023 Urobilinogen Ql (U) 1 mg/dl Normal [facility] Absolute lymphocyte counton 03-09-2022 Lymphocytes Auto (Unsp spec) [#/Vol] 2.16 10*3/uL 0.83-4.51 [facility] Work Phone: Basophil percentageon 2021 Basophil percentage 0-5 SEEN /hpf [facility] Work Phone: Basophils/100 WBC (Bld) 0.5 % 0-[address] [facility] Work Phone: Bilirubin [Mass/Vol] 0.50 mg/dL 0.20-1.00 [facility] Work Phone: Comment on above: For patients on eltr ombopag therapy, use of Dimension [place] TBIL is not recommended. Chloride [Moles/Vol] 109 mmol/L 98-107 [facility] Work Phone: Cholesterol [Mass/Vol] 206 mg/dL <200 [facility] Work Phone: Comment on above: <200 mg/dL Desirable 200-240 mg/dL Borderline >240 mg/dL High Risk Eosinophils/100 WBC (Bld) 2.0 % 0-5 [facility] Work Phone: Glucose [Mass/Vol] 81 mg/dL 74-106 [facility] Work Phone: Neutrophils (Bld) [#/Vol] 3.5 10*3/uL 2.0-7.7 [facility] Work Phone: Neutrophils/100 WBC (Bld) 54.6 % 47-70 [facility] Work Phone: Potassium [Moles/Vol] 3.7 mmol/L 3.5-5.1 [facility] Work Phone: Protein [Mass/Vol] 6.8 g/dL 6.4-8.2 [facility] Work Phone: Sodium [Moles/Vol] 141 mmol/L 136-145 [facility] Work Phone: Triglyceride [Mass/Vol] 214 mg/dL [facility] Work Phone: Comment on above: The drugs N-Acetylcy steine and Metamizole may falsely depress this assay.Serum Triglycerides Reference Interval Normal <150 mg/dL Borderline high 150 - 199 mg/dL High 200 - 499 mg/dL Very High > or = 500 mg/dL WBC (Bld) [#/Vol] 6.4 10*3/uL 4.4-11.0 [facility] Work Phone: Bilirubin Test strip Ql (U)o n 03-09-2022 Bilirubin Ql (U) Negative Negative [facility] Work Phone: Blood erythrocytes count (nu mber/volume)on 03-09-2022 RBC (Bld) [#/Vol] 3.91 10*6/uL 4.2-5.4 [facility] Work Phone: Blood hemoglobin measurement (mass/volume)on 03-09-2022 Hemoglobin (Bld) [Mass/Vol] 12.3 g/dL 12.0-15.0 [facility] Work Phone: Blood lymphocytes/100 leukoc yteson 03-09-2022 Lymphocytes/100 WBC (Bld) 33.6 % 19-41 [facility] Work Phone: Blood monocytes/100 leukocyt eson 03-09-2022 Monocytes/100 WBC (Bld) 9.0 % 0-[address] [facility] Work Phone: Blood platelet mean volumeon 03-09-2022 Platelet mean volume (Bld) [Entitic vol] 11.1 fL 6.2-12.0 [facility] Work Phone: Determination of erythrocyte mean corpuscular volume (MCV)on 03-09-2022 MCV (RBC) [Entitic vol] 94.4 fL 81-[address] [facility] Work Phone: Hematocrit Auto (Bld) [Volum e fraction]on 03-09-2022 Hematocrit (Bld) [Volume fraction] 36.9 % 37-47 [facility] Work Phone: Ketones Test strip Ql (U)on 03-09-2022 Ketones Ql (U) 5 mg/dl Negative [facility] Work Phone: Laboratory - Chemistry and C hemistry - challengeon 03-09-2022 ALP [Catalytic activity/Vol] 73 U/L 45-117 [facility] Work Phone: ALT [Catalytic activity/Vol] 12 U/L 13-56 [facility] Work Phone: CO2 [Moles/Vol] 25.0 mmol/L 21.0-32.0 [facility] Work Phone: Free T4 [Mass/Vol] 1.14 ng/dL 0.76-1.46 [facility] Work Phone: Globulin (S) [Mass/Vol] 3.3 g/dL 2.2-4.[address] [facility] Work Phone: Magnesium [Mass/Vol] 2.2 mg/dL 1.6-2.6 [facility] Work [facility]: Urea nitrogen/Creatinine [Mass ratio] 24.8 mg/mg 10-20 [facility] Work Phone: Laboratory - Hematology and Cell countson 03-09-2022 Erythrocyte distribution width (RBC) [Entitic vol] 44.2 fL 35.1-43.9 [facility] Work Phone: Erythrocyte distribution width (RBC) [Ratio] 12.8 % 11.6-14.6 [facility] Work Phone: Immature granulocytes/100 WBC (Bld) 0.300 % 0.0-0.9 [facility] Work Phone: Comment on above: IG% - Immature Granu locytes (promyelocytes, myelocytes and metamyelocytes) > 1% indicates that a LEFT SHIFT is Present. MCH (RBC) [Entitic mass] 31.5 pg 27.0-32.0 [facility] Work Phone: Nucleated RBC/100 WBC (Bld) [Ratio] 0 % 0-5 [facility] Work Phone: MCHC Auto (RBC) [Mass/Vol]on 03-09-2022 MCHC (RBC) [Mass/Vol] 33.3 g/dL 32-36 [facility] Work Phone: Mucus LM Ql (Urine sed)on Mucus Ql (Urine sed) RARE /hpf [facility] Work Phone: Nitrite Test strip Ql (U)on 03-09-2022 Nitrite Ql (U) Negative Negative [facility] Work Phone: No Panel Informationon 03-09 Estimated GFR (MDRD) Amer 125 mL/min >60 [facility] Work Phone: Comment on above: GFR Calc Estimated GFR (MDRD) Non-Af Amer 103 mL/min >60 [facility] Work Phone: Comment on above: Non- GFR Calc Thyroglobulin Antibody < 1.0 IU/mL [facility] Work Phone: Comment on above: Thyroglobulin Antibo dy measured by Rich CoulterMethodology Thyroglobulin Level 81.9 ng/mL [facility] Work Phone: Comment on above: According to the [facility] [employer],the reference interval for Thyroglobulin (TG) should berelated to euthyroid patients and not for patients whounderwent thyroidectomy. TG reference intervals for thesepatients depend on the residual mass of the thyroid tissueleft after surgery. Establishing a post-operative baselineis recommended. The assay limit of quantitation is 0.1ng/mLThyroglobulin measured by Rich Lyons ImmunometricAssay Thyroid Stimulating Hormone (TSH) 0.01 uIU/mL 0.358-3.74 [facility] Work Phone: Vitamin D 25-Hydroxy 56.3 ng/mL [facility] Work Phone: Comment on above: Vitamin D 25(OH) Sta tus Range Deficiency <20 ng/mL (50nmol/L) Insufficiency 20 - 30 ng/mL (50 - 75 nmol/L) Sufficiency 30 - 100 ng/mL (75 - 250 nmol/L) Toxicity >100 ng/mL (>250 nmol/L) Platelets bldon 03-09-2022 Platelets (Bld) [#/Vol] 200 10*3/uL 150-450 [facility] Work Phone: Protein Test strip Ql (U)on 03-09-2022 Protein Ql (U) Negative Negative [facility] Work Phone: Serum or plasma albumin devante urement (mass/volume)on 03-09-2022 Albumin [Mass/Vol] 3.5 g/dL 3.2-5.0 [facility] Work Phone: Serum or plasma albumin/glob ulin mass ratioon 03-09-2022 Albumin/Globulin [Mass ratio] 1.1 {ratio} 0.9-2.4 [facility] Work Phone: Serum or plasma calcium devante urement (mass/volume)on 03-09-2022 Calcium [Mass/Vol] 9.1 mg/dL 8.5-10.1 [facility] Work Phone: Serum or plasma cholesterol in HDL measurement (mass/volume)on 03-09-2022 Cholesterol in HDL [Mass/Vol] 53 mg/dL [facility] Work Phone: Comment on above: The drugs N-Acetylcy steine and Metamizole may falsely depress this assay. Reference Range HDL <40 mg/dL Low HDL Cholesterol HDL >or= 60 mg/dL High HDL Cholesterol Serum or plasma cholesterol in VLDL measurement (mass/volume)on 03-09-2022 Cholesterol in VLDL [Mass/Vol] 43 mg/dL 5-40 [facility] Work Phone: Serum or plasma creatinine m easurement (mass/volume)on 03-09-2022 Creatinine [Mass/Vol] 0.61 mg/dL 0.55-1.02 [facility] Work Phone: Comment on above: The validity of the calculated GFR & GFRAA in patients over 70 years has not been determined. Clinical correlation is essential. Serum or plasma low density lipoprotein (LDL) cholesterol measurement (mass/volume)on 03-09-2022 Cholesterol in LDL [Mass/Vol] 110 mg/dL 0-130 [facility] Work Phone: Serum or plasma thyroperoxid ase antibody assay (units/volume)on 03-09-2022 TPO Ab Qn 10 [IU]/mL [facility] Work Phone: Comment on above: Performed at: [facility] - [address] [id number] Director: Bibi Harris MD, Phone: [phone] at: - [facility] [address] [id number] Director: Kal Schulz PhD, Phone: [phone] Serum or plasma urea nitroge n measurement (mass/volume)on 03-09-2022 Urea nitrogen [Mass/Vol] 15 mg/dL 7-18 [facility] Work Phone: Squamous epithelial cells de tection in urine sediment by light microscopyon 03-09-2022 Epithelial cells.squamous LM Ql (Urine sed) 0-5 SEEN /hpf [facility] Work Phone: Thin prep Papanicolaou smear with manual screeningon 03-09-2022 Thin prep Papanicolaou smear with manual screening 17 U/L 15-37 [facility] Work Phone: Thin prep Papanicolaou smear with manual screening 7 5-15 [facility] Work Phone: Thyroid stimulating immunogl obulins detectionon 03-09-2022 Thyroid stimulating immunoglobulins Ql (S) <0.10 IU/L [facility] Work Phone: Urine blood detectionon 02-19 RBC Ql (U) 10 /ul Negative [facility] Work Phone: RBC Ql (U) 0 SEEN /hpf [facility] Work Phone: Urine clarityon 03-09-2022 Clarity (U) Clear Clear [facility] Work Phone: Urine color determinationon 03-09-2022 Color (U) Yellow Yellow [facility] Work Phone: Urine glucose detectionon Glucose Ql (U) Normal mg/dl Normal [facility] Work Phone: Urine leukocyte esterase det ection by dipstickon 03-09-2022 Leukocyte esterase Test strip Ql (U) 25 /ul Negative [facility] Work Phone: Urine pHon 03-09-2022 pH (U) 5.0 [pH] [facility] Work Phone: Urine sediment bacteria coun t by microscopy (number/high power field)on 03-09-2022 Bacteria LM.HPF (Urine sed) [#/Area] 0 /[HPF] None Seen [facility] Work Phone: Urine specific gravity measu rementon 03-09-2022 Specific gravity (U) [Rel density] 1.025 [facility] Work Phone: Urobilinogen Auto test strip Ql (U)on 03-09-2022 Urobilinogen Ql (U) Normal mg/dl Normal [facility] Work Phone: Vital Signs Date Time Vital Sign Value Performing Clinician Faci lity 06-28-2025 10:04-0400 Body temperature 97.7 [degF] Dr. Abraham Bahena MD Work Phone: [facility] 06-28-2025 10:04-0400 Diastolic blood pressure 64 mm[Hg] Dr. Abraham Bahena MD Work Phone: [facility] 06-28-2025 10:04-0400 Heart rate 72 /min Dr. Abraham Bahena MD Work Phone: [facility] 06-28-2025 10:04-0400 Respiratory rate 16 /min Dr. Abraham Bahena MD Work Phone: [facility] 06-28-2025 10:04-0400 SaO2% (BldA) [Mass fraction] 98 % Dr. Abraham Bahena MD Work Phone: 0(642)[phone] [place] [address] 06-28-2025 10:04-0400 Systolic blood pressure 122 mm[Hg] Dr. Abraham Bahena MD Work Phone: [facility] 05-13-2025 09:24-0400 Body temperature 98.4 [degF] Dr. Abraham Bahena MD Work Phone: [facility] 05-13-2025 09:24-0400 Diastolic blood pressure 58 mm[Hg] Dr. Abraham Bahena MD Work Phone: [facility] 05-13-2025 09:24-0400 Heart rate 84 /min Dr. Abraham Bahena MD Work Phone: [facility] 05-13-2025 09:24-0400 Respiratory rate 17 /min Dr. Abraham Bahena MD Work Phone: [facility] 05-13-2025 09:24-0400 SaO2% (BldA) [Mass fraction] 91 % Dr. Abraham Bahena MD Work Phone: [facility] 05-13-2025 09:24-0400 Systolic blood pressure 100 mm[Hg] Dr. Abraham Bahena MD Work Phone: [facility] 03-03-2025 10:56-0400 Body height 162.[address] Abraham Bahena MD Work Phone: [facility] 03-03-2025 10:56-0400 Body mass index (BMI) [Ratio] 19.9 kg/m2 Dr. Abraham Bahena MD Work Phone: [facility] 03-03-2025 10:56-0400 Body weight 52.[address] Abraham Bahena MD Work Phone: [facility] 03-03-2025 10:56-0400 Diastolic blood pressure 56 mm[Hg] Dr. Abraham Bahena MD Work Phone: [facility] 03-03-2025 10:56-0400 Heart rate 79 /min Dr. Abraham Bahena MD Work Phone: [facility] 03-03-2025 10:56-0400 Respiratory rate 16 /min Dr. Abraham Bahena MD Work Phone: [facility] 03-03-2025 10:56-0400 Systolic blood pressure 95 mm[Hg] Dr. Abraham Bahena MD Work Phone: [facility] 02-29-2024 14:30-0400 Body height 162.[address] Abraham Bahena Work Phone: [facility] 02-29-2024 14:30-0400 Body mass index (BMI) [Ratio] 19.2 kg/m2 Dr. Abraham Bahena Work Phone: [facility] 02-29-2024 14:30-0400 Body weight 50.[address] Abraham Bahena Work Phone: [facility] 02-29-2024 14:30-0400 Diastolic blood pressure 69 mm[Hg] Dr. Abraham Bahena Work Phone: [facility] 02-29-2024 14:30-0400 Heart rate 78 /min Dr. Abraham Bahena Work Phone: [facility] 02-29-2024 14:30-0400 Respiratory rate 16 /min Dr. Abraham Bahena Work Phone: [facility] 02-29-2024 14:30-0400 Systolic blood pressure 128 mm[Hg] Dr. Abraham Bahena Work Phone: [facility] 11-22-2023 21:00-0500 Diastolic blood pressure 66 mm[Hg] Dr. Abraham Bahena Work Phone: 6(658)407-801309 [place] [address] 11-22-2023 21:00-0500 Heart rate 90 /min Dr. Abraham Bahena Work Phone: 2(528)744-344209 [place] [address] 11-22-2023 21:00-0500 Respiratory rate 16 /min Dr. Abraham Bahena Work Phone: 7(202)742-438309 [place] [address] 11-22-2023 21:00-0500 SaO2% (BldA) [Mass fraction] 98 % Dr. Abraham Bahena Work Phone: 3(333)357-703709 [place] [address] 11-22-2023 21:00-0500 Systolic blood pressure 144 mm[Hg] Dr. Abraham Bahena Work Phone: 0(317)382-652509 [place] [address] 11-22-2023 19:21-0500 Body temperature 96.7 [degF] Dr. Abraham Bahena Work Phone: 3(777)175-004709 [place] [address] 11-22-2023 17:26-0500 Body height 162.[address] Abraham Bahena Work Phone: 2(519)125-004709 [place] [address] 11-22-2023 17:26-0500 Body mass index (BMI) [Ratio] 18 kg/m2 Dr. Abraham Bahena Work Phone: 4(492)131-231209 [place] [address] 11-22-2023 17:26-0500 Body weight 47.[address] Abraham Bahena Work Phone: 0(561)722-958309 [place] [address] 10-17-2023 09:59-0500 Body mass index (BMI) [Ratio] 18.8 kg/m2 Dr. Abraham Bahena Work Phone: 9(256)741-985809 [place] [address] 10-17-2023 09:59-0500 Body temperature 97.8 [degF] Dr. Abraham Bahena Work Phone: [facility] 10-17-2023 09:59-0500 Body weight 49.[address] Abraham Bahena Work Phone: [facility] 10-17-2023 09:59-0500 Diastolic blood pressure 78 mm[Hg] Dr. Abraham Bahena Work Phone: [facility] 10-17-2023 09:59-0500 Heart rate 98 /min Dr. Abraham Bahena Work Phone: [facility] 10-17-2023 09:59-0500 Respiratory rate 16 /min Dr. Abraham Bahena Work Phone: [facility] 10-17-2023 09:59-0500 SaO2% (BldA) [Mass fraction] 98 % Dr. Abraham Bahena Work Phone: [facility] 10-17-2023 09:59-0500 Systolic blood pressure 141 mm[Hg] Dr. Abraham Bahena Work Phone: [facility] 08-31-2023 13:20-0400 Body mass index (BMI) [Ratio] 19.8 kg/m2 Dr. Abraham Bahena Work Phone: [facility] 08-31-2023 13:20-0400 Body temperature 99.3 [degF] Dr. Abrahma Bahena Work Phone: [facility] 08-31-2023 13:20-0400 Body weight 52.[address] Abraham Bahena Work Phone: [facility] 08-31-2023 13:20-0400 Diastolic blood pressure 66 mm[Hg] Dr. Abraham Bahena Work Phone: [facility] 08-31-2023 13:20-0400 Heart rate 60 /min Dr. Abraham Bahena Work Phone: [facility] 08-31-2023 13:20-0400 Respiratory rate 18 /min Dr. Abraham Bahena Work Phone: [facility] 08-31-2023 13:20-0400 SaO2% (BldA) [Mass fraction] 96 % Dr. Abraham Bahena Work Phone: [facility] 08-31-2023 13:20-0400 Systolic blood pressure 147 mm[Hg] Dr. Abraham Bahena Work Phone: [facility] Encounters Encounter Date Encounter Type Care Provider Facility Start: 07-19-2025 ambulatory Gigi Macielmartina Ghulam ty:[facility] Start: 06-28-2025 End: 06-28-2025 Patient encounter procedure Ania RODC [facility] Work Phone: Start: 06-28-2025 End: 06-28-[address] Abraham Bahena MD Work Phone: [facility] Start: 06-28-2025 End: 06-28-2025 ambulatory Abraham Bahena Facility:[facility] Start: 05-13-2025 End: 05-13-[address] Abraham Bahena MD Work Phone: [facility] Work Phone: Start: 05-13-2025 End: 05-13-2025 Patient encounter procedure Mikael Salazar PA -[facility] Work Phone: Start: 04-29-2025 End: 04-29-[address] Abraham Bahena MD Work Phone: [facility] Work Phone: Start: 04-29-2025 End: 04-29-[address] Abraham Bahena MD -[facility] Start: 04-29-2025 End: 04-29-2025 ambulatory Abraham Bahena Facility:[facility] Start: 03-03-2025 End: 03-03-2025 ambulatory Abraham Bahena [place] Start: 03-03-2025 End: 03-03-[address] Quentin Baez MD -[facility] Work Phone: Start: 01-01-2025 End: 01-01-2025 ambulatory Abraham Bahena Facility:[facility] Start: 01-01-2025 End: 01-01-2025 ambulatory Abraham Bahena Facility:[facility] Start: 12-24-2024 End: 12-24-2024 ambulatory Abraham Bahena Facility:[facility] Start: 12-19-2024 ambulatory Messi Carlotta Facili ty:[facility] Start: 12-19-2024 End: 12-19-2024 ambulatory Messi Carlotta Facility:[facility] Start: 12-12-2024 End: 12-12-2024 ambulatory Abraham Bahena Facility:[facility] Start: 10-29-2024 End: 10-29-2024 ambulatory Abraham Bahena Facility:[facility] Start: 10-22-2024 End: 10-22-2024 ambulatory Abraham Bahena Facility:[facility] Start: 10-14-2024 ambulatory Juarez Yates Facility:[facility] Start: 10-14-2024 End: 10-14-2024 ambulatory Abraham Bahena Facility:[facility] Start: 10-12-2024 End: 10-12-2024 ambulatory Arley PIÑA Facility:[facility] Start: 09-11-2024 End: 09-11-2024 ambulatory Abraham Bahena Facility:[facility] Start: 09-02-2024 End: 09-02-2024 ambulatory Abraham Bahena Facility:[facility] Start: 03-26-2024 Non-patient / Non-visit Dr. Josie Bahena Work Phone: [facility] Start: 03-26-[address] Abraham Bahena Work Phone: [facility] Work Phone: Start: 03-20-2024 End: 03-20-[address] Abraham Bahena Work Phone: [facility] Work Phone: Start: 03-20-2024 End: 03-20-[address] Abraham Bahena Work Phone: [facility] Start: 02-29-2024 End: 02-29-[address] Abraham Bahena Work Phone: [facility] Work Phone: Start: 01-01-2024 End: 01-01-[address] Abraham Bahena Work Phone: [facility] Work Phone: Start: 11-22-2023 End: 11-22-2023 Emergency department patient [facility] Start: 10-17-2023 End: 10-17-[address] Abraham Bahena Work Phone: [facility] Work Phone: Start: 08-31-2023 End: 08-31-[address] Abraham Bahena Work Phone: [facility] Work Phone: Start: 03-16-2022 End: 03-16-[address] Abraham Bahena Work Phone: [facility] Start: 03-09-2022 End: 03-09-[address] Abraham Bahena Work Phone: [facility] Start: 12-14-2021 End: 12-14-[address] Abraham Bahena Work Phone: [facility] Procedures Date Procedure Procedure Detail Performing Clinician Start: 06-30-[address] Abraham Bahena MD Work Phone: Start: 06-10-2025 Vitamin D, 25-hydrox y measurement Dr. Abraham Bahena MD Work Phone: Comment on above: Vitamin D StatusDefi ciency: <20 ng/mL (50nmol/L)Insufficiency: 20-30 ng/mL (50-75 nmol/L)Sufficiency: 30-100 ng/mL (75-250 nmol/L)Toxicity: >100 ng/mL (>250 nmol/L) Start: 11-22-2023 SARS-CoV-2, Influenz a & RSV (PCR) Dr. Abraham Bahena Work Phone: Start: 03-16-2022 US scan of thyroid Dr. Abraham Bahena Work Phone: Start: 03-09-2022 Plain x-ray of pelvi s and lower extremity Dr. Abraham Bahena Work Phone: Plan of Treatment Date Care Activity Detail Author Start: 11-22-2023 [facility] Patient Education Coronavirus Di sease 2019 (COVID-19): Caring for Yourself or Others [facility] Work Phone: Patient referral [facility] Work Phone: [facility] Payers Date Payer Category Payer Self-pay [id number] 2015 Medicare [id number] 2015 Unknown [id number] [id number] Unknown [id number] 2.16.8 [id number] Unknown [id number] 2.16.8 40.1.416864.3.579.2.462 Unknown [id number] 2.16.8 40.1.018420.3.579.2.462 Unknown [id number] 2.16.8 40.1.106516.3.579.2.462 Unknown [id number] 2.16.8 40.1.359910.3.579.2.462 Unknown [id number] 2.16.8 40.1.443081.3.579.2.462 Unknown [id number] 2.16.8 40.1.379996.3.579.2.462 Unknown [id number] 2.16.8 40.1.177223.3.579.2.462 Unknown [id number] 2.16.8 40.1.020048.3.579.2.462 Unknown [id number] 2.16.8 40.1.161678.3.579.2.462 Unknown [id number] 2.16.8 40.1.705326.3.579.2.462 Unknown [id number] 2.16.8 40.1.286385.3.579.2.462 Unknown [id number] 2.16.8 40.1.169807.3.579.2.462 Unknown [id number] 2.16.8 40.1.986645.3.579.2.462 Unknown [id number] 2.16.8 40.1.968026.3.579.2.462 Unknown [id number] 2.16.8 40.1.405514.3.579.2.462 Unknown [id number] 2.16.8 40.1.814445.3.579.2.462 Unknown [id number] 2.16.8 40.1.713590.3.579.2.462 Unknown [id number] 2.16.8 40.1.714604.3.579.2.462 Unknown [id number] 2.16.8 40.1.764045.3.579.2.462 Unknown [id number] 2.16.8 40.1.537376.3.579.2.462 Unknown [id number] 2.16.8 40.1.238172.3.579.2.462 Unknown [id number] 2.16.8 40.1.099594.3.579.2.462 Unknown [id number] 2.16.8 40.1.936735.3.579.2.462 Unknown [id number] 2.16.8 40.1.310154.3.579.2.462 Unknown [id number] 2.16.8 40.1.004356.3.579.2.462 Unknown [id number] 2.16.8 40.1.865011.3.579.2.462 Unknown [id number] 2.16.8 40.1.998525.3.579.2.462 Social History Date Type Detail Facility Start: 07-28-2021 End: 02-29-2024 Tobacco smoking status VTIS Unknown if ever smoked [facility] Start: 1950 Sex Assigned At Female [facility] Start: 03-03-2025 Tobacco smoking stat us VTIS Smokes tobacco daily (finding) [facility] Medical Equipment Procedure Code Equipment Code Equipment Origin al Text Equipment Identifier Dates Single-chamber implantable defibrillator ()[id number] [facility] Start: 12-19-2024 Evaluation note 06-28-2025 Note Date & Type Note Facility 06-28-2025 Evaluation note Diagnosis Onset Date Resolution Dysuria acute June 28 9:44am [facility] Work Phone: Evaluation note 12-19-2024 Note Date & Type Note Facility 12-19-2024 Evaluation note Diagnosis Onset Date Resolution History of implantable cardiac defibrillator (ICD) December 19, 2024 chronic March 03, 2025 10:40am Non-ischemic cardiomyopathy chronic March 03, 2025 10:40am Nonsustained ventricular tachycardia chronic March 03, 2025 10:40am History of implantable cardiac defibrillator (ICD) December 19, 2024 chronic March 03, 2025 10:41am Non-ischemic cardiomyopathy chronic March 03, 2025 10:41am Nonsustained ventricular tachycardia chronic March 03, 2025 10:41am [facility] Work Phone: Discharge summary 11-22-2023 Note Date & Type Note Facility 11-22-2023 Discharge summary Note Date/Time November 22, 2023 6:58pm [facility] Medical Records Department [address] [place] [address] Emergency Department Summary 11/22/23 MR#: [id number] Acct: [id number] Name: CHANTEL STACY Rep #:[id number] : 1950 73 From: Mikhail Benson DO PCP: Dr. Abraham Bahena MD Status:RE G ER Location: ED HPI HPI - GI History of Present Illness Chief Complaint: Nausea/Vomiting/Diarrhea Narrative Narrative: -year-old female presenting with nausea, vomiting, diarrhea. This has been ongoing for about a day. Patient states she was initially sick prior to this and went to the urgent care where they tested her urine and told her she had a UTI. She took a Cipro which she has had in the past and started to have nausea vomiting today. She states that she called the urgent care and was sent to the emergency room out of concern she was allergic to Cipro. She states he is takenthis in the past without any complications. She has not a fever but does admit to chills, body aches, diarrhea without any black or bloody stools. She does have history of recent use of antibiotics besides yesterday as she states she was treated for the sinusitis only. Denies fever as she has not checked her temperature. No shortness of breath, chest pain, palpitations. [facility] Medical History Abdominal pain Arthritis Back problem Chronic systolic (congestive) heart failure IBS (irritable bowel syndrome) Lipoma of arm Multiple thyroid nodules Nicotine dependence Non-ischemic cardiomyopathy Nonsustained ventricular tachycardia Thyroid disorder Fhjkk-Dfhhtmdzq-Fznwb (WPW) syndrome Home Medications furosemide 40 mg tablet (Lasix) 40 mg PO .PRN PRN edema shortness of breath #90 tabs 07/28/21 [Rx Last Taken Unknown] acetaminophen 500 mg capsule 1,000 mg PO ONCE 06/29/22 [History Last Taken Unknown] aspirin 81 mg tablet,delayed release (Adult Low Dose Aspirin) 81 mg PO QDAY PRN 06/29/22 [History Last Taken Unknown] carvedilol 25 mg tablet (Coreg) 25 mg PO BID #180 tabs 07/03/23 [Rx Last Taken Unknown] lisinopril 10 mg tablet 10 mg PO QDAY #90 tabs 07/03/23 [Rx Last Taken Unknown] amoxicillin 875 mg-potassium clavulanate 125 mg tablet 1 tab PO BID #20 tabs 10/17/23 [Rx Last Taken Unknown] methylprednisolone 4 mg tablets in a dose pack (Medrol (Dipak)) See Rx Instructions PO PER PKG DIR #21 tabs 10/17/23 [Rx Last Taken Unknown] ondansetron 4 mg disintegrating tablet 4 mg PO Q8H PRN PRN Nausea #20 tabs 11/22/23 [Rx Last Taken Unknown] Allergy/AdvReac Type Severity Reaction Status Date / Time vancomycin AdvReac itchy Verified 11/22/23 17:26 scalp cobweb on face Family History Mother Arthritis Asthma Brother Brain cancer Grandmother Arthritis Surgical History History of cardiac radiofrequency ablation (10/2003) History of hysterectomy History of implantable cardiac defibrillator (ICD) (07/28/11) History of left heart catheterization (10/2003) S/P angioplasty S/P thyroid biopsy (~05/2018) S/P tonsillectomy Social History Smoking Status: Current every day smoker tobacco type: cigarettes alcohol intake: current alcohol intake frequency: holidays/special occasions only substance use type: does not use caffeine: Yes Type: carbonated beverages Number of servings: 2 frequency: does not exercise seatbelt use: always ROS ROS ED Constitutional Constitutional ED: Reports chills and sweats; Denies fever(s) Eyes Eyes: Denies blurry vision or change in vision ENT ENT ED: Denies ear pain or sore throat Cardiovascular Cardiovascular: Denies chest pain, palpitations or racing heartbeat Respiratory/Chest Respiratory/Chest: Denies cough, dyspnea or sputum Gastrointestinal Gastrointestinal: Reports diarrhea, nausea and vomiting; Denies abdominal pain or constipation Genitourinary Genitourinary ED: Denies dysuria, hematuria or urinary frequency Musculoskeletal Musculoskeletal: Reports myalgias; Denies arthralgias or neck pain Integumentary Denies abscess, Abrasions or rash Neurologic Neurologic: Denies headache(s), paresthesias or weakness Psychiatric Psychiatric: Denies anxiety, depression, suicidal ideation or suicidal thoughts Endocrine Endocrinology: Denies polydipsia or polyuria EXAM Physical Exam Const Vital Signs: 11/22/23 17:26 11/22/23 19:21 Temperature 96.8 F L 96.7 F L Temperature Source Temporal Temporal Pulse Rate 73 73 Respiratory Rate 16 16 Blood Pressure 124/91 H 124/91 H Blood Pressure Mean 102 102 Pulse Ox 99 99 Oxygen Delivery Method Room Air Room Air Positive well nourished General Appearance ED: NAD; Negative for pallor HEENT Reports moist mucous membranes normocephalic and atraumatic Eyes PERRL and EOMs intact bilaterally Resp normal respiratory effort Auscultation: Negative for rales, rhonchi or wheezes Cardio regular rate and regular rhythm GI non-tender and non-distended Neuro CN's II-XII intact bilaterally Sensorium / Orientation: alert Psych mental status grossly normal Skin General Skin Exam: Negative for jaundice or pallor MDM MDM MDM Narrative Medical decision making narrative: Patient presenting with nausea, vomiting, diarrhea. Recently diagnosed with UTI. CBC was obtained to assess white blood cell count, hemoglobin, platelets. BMP to assess renal function, electrolytes, glucose. Urinalysis to assess for UTI. Urinalysis shows negative nitrites, 110 esterase, 0-5 RBCs, 10-25 WBCs, 5-10 squamous epithelial cells. There is rare bacteria. This is likely contaminated specimen. Patient did report that she had some dysuria yesterday. CBC unremarkable with normal white blood cell count of 10.2. Hemoglobin 12.5. No left shift. BUN/creatinine ratio is elevated and patient given a liter normal saline, Zofran, Toradol. On reevaluation at 9 PM patient is feeling muchbetter. Urinalysis is negative for infection. It is contaminated. CBC shows normal white blood cell count of 10.2. Hemoglobin 12.5. Renal function and electrolytes within normal limits. Patient's COVID testing came back positive. Patient counseled we will give her Zofran for home for nausea and she is to drink plenty of fluids. Return precautions were discussed. Impression: 1. Nausea/vomiting 2. COVID-19 Lab Data Labs: Laboratory Results - last 24 hr 11/22/23 17:43 WBC 10.2 RBC 4.05 L Hgb 12.5 Hct 38.7 MCV 95.6 MCH 30.9 MCHC 32.3 RDW Std Deviation 43.7 RDW Coeff of Teena 12.4 Plt Count 232 MPV 9.9 Sodium 138 Potassium 3.5 Chloride 104 Carbon Dioxide 26.0 Anion Gap 8 BUN 24 H Creatinine 0.83 Estim Creat Clear Calc 45.39 Est GFR (MDRD) Af Amer 86 Est GFR (MDRD) Non-Af 71 BUN/Creatinine Ratio 28.9 H Glucose 98 Calcium 8.8 Urine Color Yellow Urine Clarity Sl. Cloudy Urine pH 5.0 Ur Specific [place] 1.030 Urine Protein 30 H Urine Glucose (UA) Normal Urine Ketones 15 H Urine Occult Blood 25 H Urine Nitrite Negative Urine Bilirubin 1 H Urine Urobilinogen 1 H Ur Leukocyte Esterase 100 H Urine RBC 0-5 SEEN Urine WBC 10-25 SEEN Ur Squamous Epith Cells 5-10 SEEN Calcium Oxalate Crystal 1+ Urine Bacteria RARE Urine Mucus RARE Discharge Plan Triage Chief Complaint: Nausea/Vomiting/Diarrhea ED Provider: Mikhail Benson Dx/Rx/DC Orders Instructions: Coronavirus Disease 2019 (COVID-19): Caring for Yourself or Others Prescriptions: New ondansetron 4 mg tablet,disintegrating 4 mg PO Q8H PRN PRN (Reason: Nausea) Qty: 20 0RF No Action aspirin [Adult Low Dose Aspirin] 81 mg tablet,delayed release (DR/EC) 81 mg PO QDAY PRN furosemide [Lasix] 40 mg tablet 40 mg PO .PRN PRN (Reason: edema shortness of breath) Qty: 90 3RF acetaminophen 500 mg capsule 1,000 mg PO ONCE carvedilol [Coreg] 25 mg tablet 25 mg PO BID Qty: 180 3RF lisinopril 10 mg tablet 10 mg PO QDAY Qty: 90 3RF methylprednisolone [Medrol (Dipak)] 4 mg tablets,dose pack See Rx Instructions PO PER PKG DIR Qty: 21 0RF Rx Instructions: PO PER PKG DIR amoxicillin-pot clavulanate 875-125 mg tablet 1 tab PO BID Qty: 20 0RF Primary Care Provider: Abraham Bahena Referrals: Abraham Bahena MD [Primary Care Provider] - Disposition Disposition: Home, Self Care What to do if you have Problems For any increased pain, shortness of breath, bleeding, nausea or vomiting, chestpain, or any unexpected problems, contact your Primary Care Provider. Call [facility] ([phone]) or report to the closest Emergency Room. Call 911 if necessary. 11/22/232057 <Electronically signed by Mikhail Benson DO> Cosigner Signature (if applicable): CC: Dr. Abraham Bahena MD ~ Signed [facility] Work Phone: Evaluation note 07-28-2011 Note Date & Type Note Facility 07-28-2011 Evaluation note Diagnosis Onset Date Chronic systolic (congestive) heart failure chronic History of implantable cardiac defibrillator (ICD) July 28, 2011 chronic Non-ischemic cardiomyopathy chronic Yxvuh-Roakslnon-Moeib (WPW) syndrome chronic [facility] Work Phone: Evaluation note 07-28-2011 Note Date & Type Note Facility 07-28-2011 Evaluation note Diagnosis Onset Date Chronic systolic (congestive) heart failure chronic History of implantable cardiac defibrillator (ICD) July 28, 2011 chronic Non-ischemic cardiomyopathy chronic Nonsustained ventricular tachycardia chronic Jruvm-Bgvscvyfo-Outwh (WPW) syndrome chronic Chronic systolic (congestive) heart failure chronic History of implantable cardiac defibrillator (ICD) July 28, 2011 chronic Non-ischemic cardiomyopathy chronic Nonsustained ventricular tachycardia chronic History of implantable cardiac defibrillator (ICD) July 28, 2011 chronic Non-ischemic cardiomyopathy chronic Nonsustained ventricular tachycardia chronic [facility] Work Phone: Evaluation note Note Date & Type Note Facility Evaluation note Diagnosis Onset Date Acute sinusitis acute [facility] Work Phone: Reason for referral (narrative) Note Date & Type Note Facility Reason for referral (narrative) No reason for referral information available [facility] Work Phone: Chief Complaint and Reason for Visit Chief Complaint ICD f/u rescheduled from 12/13 XRAY- HIP PAIN Reason for Visit Chronic systolic (co ngestive) heart failure History of implantable cardiac defibrillator (ICD) Non-ischemic cardiomyopathy Czfvx-Xsjdaariq-Kztdf (WPW) syndrome Chief Complaint ICD f/u rescheduled from 12/13 XRAY- HIP PAIN MULTIPLE THYROID NODULES Reason for Visit Chronic systolic (co ngestive) heart failure History of implantable cardiac defibrillator (ICD) Non-ischemic cardiomyopathy Xejzv-Uzohkaibg-Nczbp (WPW) syndrome Chief Complaint COUGH, CONGESTION COUGH, SORE THROAT, DRAINAGE N/V/D Reason for Visit Acute sinusitis Chief Complaint 6 M FU Pacer Check Remote Pacer Check Remote 1 YR CK / EDUCATION DEAN 3:30 1 YR F/U / CHRISTINA 3:00 DILATED CARDIOMYOPATHY Reason for Visit Chronic systolic (co ngestive) heart failure History of implantable cardiac defibrillator (ICD) Non-ischemic cardiomyopathy Nonsustained ventricular tachycardia Zsegu-Wtywfxcir-Mhzub (WPW) syndrome Chronic systolic (congestive) heart failure History of implantable cardiac defibrillator (ICD) Non-ischemic cardiomyopathy Nonsustained ventricular tachycardia History of implantable cardiac defibrillator (ICD) Non-ischemic cardiomyopathy Nonsustained ventricular tachycardia Chief Complaint Admit Date Pacer Check Remote March 03, 2025 9:0 0am Sees JHR @ 11:30am March 03, 2025 10: 40am 6 M FU ICD f/u @ 11AM March 03, 2025 1 0:41am Reason for Visit Admit Date History of implantable cardiac defibrill ator (ICD) March 03, 2025 10:40am Non-ischemic cardiomyopathy March 03, 2025 10:40am Nonsustained ventricular tachycardia Apr 2024 10:40am History of implantable cardiac defibrill ator (ICD) March 03, 2025 10:41am Non-ischemic cardiomyopathy March 03, 2025 10:41am Nonsustained ventricular tachycardia Apr 2024 10:41am Chief Complaint Admit Date Pacer Check Remote March 03, 2025 9:0 0am Sees JHR @ 11:30am March 03, 2025 10: 40am 6 M FU ICD f/u @ 11AM March 03, 2025 1 0:41am SINUS COMPLAINT May 13, 2025 9:15 am Chief Complaint Admit Date Pacer Check Remote March 03, 2025 9:0 0am Sees JHR @ 11:30am March 03, 2025 10: 40am 6 M FU ICD f/u @ 11AM March 03, 2025 1 0:41am SINUS COMPLAINT May 13, 2025 9:15 am CONCERN FOR UTI June 28, 2025 9:4 4am Chief Complaint Admit Date SINUS COMPLAINT May 13, 2025 9:15 am CONCERN FOR UTI June 28, 2025 9:4 4am Reason for Visit Admit Date Dysuria June 28, 2025 9:4 4am Family History No Family History Records Found Relationship Condition Age at Onset Recorded Date/T kiarra mother Arthritis Unknown Asthma Unknown brother Malignant neoplasm of brain Unknown grandmother Arthritis Unknown Advance Directives No Advanced Directives Records Found Advance Directive Response Recorded Date/ Time Living Will No November 22 5:50pm Power of Computer Support Analyst No November 22 5:50pm Advance Directive Response Recorded Date/ Time Living Will No November 22 6:50pm Power of Computer Support Analyst No November 22 6:50pm Advance Directive Response Recorded Date/ Time Living Will No November 22 6:50pm Do you have a Healthcare Power of Computer Support Analyst? No November 22, 2023 6:50pm Advance Directives Yes December 19, 2024 9:21am Advance Directive Response Recorded Date/ Time Advance Directives Yes December 19, 2024 9:21am Summary Purpose Additional Source Comments Goals (unrecognized section and content) Goals may be documented in a n alternate sectionGoals may be documented in an alternate sectionGoals may be documented in an alternate sectionGoals may be documented in an alternate sectionGoals may be documented in an alternate sectionGoals may be documented in an alternate sectionGoals may be documented in an alternate sectionGoals may be documented in an alternate section Care Teams (unrecognized sec tion and content) Team Status: Active Member Role Status Dates Dr. Abraham Bahena MD Family Provider Active Dr. Abraham Bahena MD Primary Care Provider Active Team Status: Inactive Member Role Status Dates Dr. Abraham aBhena MD Primary Care Provider, Referr ing Provider Active Elías PIÑA, PA Attending Provider Active Team Status: Inactive Member Role Status Dates Dr. Abraham Bahena MD Primary Care Provider, Referr ing Provider Active Mikael PIÑA, PA Attending Provider Active Team Status: Inactive Member Role Status Dates Dr. Abraham Bahena MD Primary Care Provider Active Dr. Mikhail Benson DO Emergency Provider Active Team Status: Inactive Member Role Status Dates Dr. Abraham Bahena MD Primary Care Provider, Referr ing Provider Active Bea Gresham Attending Provider Active Team Status: Inactive Member Role Status Dates Dr. Abraham Bahena MD Primary Care Provider, Referr ing Provider Active Dr. Quentin Baez MD Attending Provider Active Team Status: Inactive Member Role Status Dates Dr. Abraham Bahena MD Primary Care Provider Active Dr. Quentin Baez MD Attending Provider Active Team Status: Active Member Role Status Dates Dr. Abraham Bahena MD Primary Care Provider Active Dr. Quentin Baez MD Attending Provider Active Team Status: Inactive Member Role Status Dates Dr. Abraham Bahena MD Primary Care Provider, Attend ing Provider Active Team Status: Active Member Role Status Dates Dr. Abraham Bahena MD Primary Care Provider Active Dr. Quentin Baez MD Attending Provider, Referring Pro vider Active Team Status: Active Member Role Status Dates Dr. Abraham Bahena MD Primary Care Provider Active Team Status: Inactive Member Role Status Dates Dr. Abraham Bahena MD Primary Care Provider Active Start: March 03, 2025 End: March 03, 2025 Dr. Quentin Baez MD Attending Provider Active S tart: March 03, 2025 End: March 03, 2025 Team Status: Inactive Member Role Status Dates Dr. Abraham Bahena MD Primary Care Provider Active Start: March 03, 2025 End: March 03, 2025 Dr. Abraham Bahena MD Referring Provider Active Start: March 03, 2025 End: March 03, 2025 Bea Gresham Attending Provider Active Start: A [id number] End: March 03, 2025 Team Status: Inactive Member Role Status Dates Dr. Abraham Bahena MD Primary Care Provider Active Start: March 03, 2025 End: March 03, 2025 Dr. Abraham Bahena MD Referring Provider Active Start: March 03, 2025 End: March 03, 2025 Abraham Rosales NP, SALES ENGINEER ACCOUNT MANAGER-C Attending Provider Active S tart: March 03, 2025 End: March 03, 2025 Team Status: Inactive Member Role Status Dates Dr. Abraham Bahena MD Primary Care Provider Active Start: April 29, 2025 End: April 29, 2025 Dr. Abraham Bahena MD Attending Provider Active Start: April 29, 2025 End: April 29, 2025 Dr. Abraham Bahena MD Referring Provider Active Start: April 29, 2025 End: April 29, 2025 Team Status: Inactive Member Role Status Dates Dr. Abraham Bahena MD Primary Care Provider Active Start: May 13, 2025 End: May 13, 2025 Dr. Abraham Bahena MD Referring Provider Active Start: May 13, 2025 End: May 13, 2025 Mikael Salazar PA, PA Attending Provider Active Start: May 13, 2025 End: May 13, 2025 Team Status: Active Member Role/Relationship Status Dates Dr. Abraham Bahena MD Primary Care Provider Active Team Status: Inactive Member Role/Relationship Status Dates Dr. Abraham Bahena MD Primary Care Provider Active Start: March 03, 2025 End: March 03, 2025 Dr. Quentin Baez MD Attending Provider Active S tart: March 03, 2025 End: March 03, 2025 Team Status: Inactive Member Role/Relationship Status Dates Dr. Abraham Bahena MD Primary Care Provider Active Start: March 03, 2025 End: March 03, 2025 Dr. Abraham Bahena MD Referring Provider Active Start: March 03, 2025 End: March 03, 2025 Bea Gresham Attending Provider Active Start: A [id number] End: March 03, 2025 Team Status: Inactive Member Role/Relationship Status Dates Dr. Abraham Bahena MD Primary Care Provider Active Start: March 03, 2025 End: March 03, 2025 Dr. Abraham Bahena MD Referring Provider Active Start: March 03, 2025 End: March 03, 2025 Abraham Rosales SALES ENGINEER ACCOUNT MANAGER, SALES ENGINEER ACCOUNT MANAGER-C Attending Provider Active S tart: March 03, 2025 End: March 03, 2025 Team Status: Inactive Member Role/Relationship Status Dates Dr. Abraham Bahena MD Primary Care Provider Active Start: April 29, 2025 End: April 29, 2025 Dr. Abraham Bahena MD Attending Provider Active Start: April 29, 2025 End: April 29, 2025 Dr. Abraham Bahena MD Referring Provider Active Start: April 29, 2025 End: April 29, 2025 Team Status: Inactive Member Role/Relationship Status Dates Dr. Abraham Bahena MD Primary Care Provider Active Start: May 13, 2025 End: May 13, 2025 Dr. Abraham Bahena MD Referring Provider Active Start: May 13, 2025 End: May 13, 2025 AYANA Weaver Attending Provider Active Start: May 13, 2025 End: May 13, 2025 Team Status: Inactive Member Role/Relationship Status Dates Dr. Abraham Bahena MD Primary Care Provider Active Start: June 28, 2025 End: June 28, 2025 Dr. Abraham Bahena MD Referring Provider Active Start: June 28, 2025 End: June 28, 2025 REDDY Horta Attending Provider Active Start: June 28, 2025 End: June 28, 2025 Team Status: Inactive Member Role/Relationship Status Dates Dr. Abraham Bahena MD Primary Care Provider Active Start: April 29, 2025 End: April 29, 2025 Dr. Abraham Bahena MD Attending Provider Active Start: April 29, 2025 End: April 29, 2025 Dr. Abraham Bahena MD Referring Provider Active Start: April 29, 2025 End: April 29, 2025 Team Status: Inactive Member Role/Relationship Status Dates Dr. Abraham Bahena MD Primary Care Provider Active Start: May 13, 2025 End: May 13, 2025 Dr. Abraham Bahena MD Referring Provider Active Start: May 13, 2025 End: May 13, 2025 AYANA Weaver Attending Provider Active Start: May 13, 2025 End: May 13, 2025 Team Status: Inactive Member Role/Relationship Status Dates Dr. Abraham Bahena MD Primary Care Provider Active Start: June 28, 2025 End: June 28, 2025 Dr. Abraham Bahena MD Referring Provider Active Start: June 28, 2025 End: June 28, 2025 REDDY Horta Attending Provider Active Start: June 28, 2025 End: June 28, 2025 Team Status: Inactive Member Role/Relationship Status Dates Dr. Abraham Bahena MD Primary Care Provider Active Start: June 28, 2025 End: June 28, 2025 REDDY Horta Attending Provider Active Start: June 28, 2025 End: June 28, 2025 INFORMATION SOURCE (unrecogn ized section and content) DATE CREATED AUTHOR 07/10/2025 [facility] FOR RECORDS PERTAINING TO PATIENTS WHO ARE OR HAVE BEEN ENROLLED IN A CHEMICAL DEPENDENCY/SUBSTANCEABUSE PROGRAM, SOME INFORMATION MAY BE OMITTED. This clinical summary was aggregated from multiple sources. Caution should be exercised in using it in the provision of clinical care. This summary normalizes information from multiple sources, and as a consequence, information in this document may materially change the coding, format and clinical context of patient data. In addition, data may be omitted in some cases. CLINICAL DECISIONS SHOULD BE BASED ON THE PRIMARY CLINICAL RECORDS. [facility] [employer] [facility] provides no warranty or guarantee of the accuracy or completeness of information in this document.
== END | disposition home or self-care (01) ==
LOC: CT 09:04
PROVIDERS: PCP Family Medicine; Referring Provider Internal Medicine Pulmonary Disease; Visit Provider Internal Medicine Pulmonary Disease
DX: R91.1 Solitary pulmonary nodule (principal)
CPT/HCPCS: 71250

== ENCOUNTER → 2025-07-22 | Outpatient (CLI) | payer MEDICARE, OTHER, SELFPAY | END | disposition home or self-care (01) | LOC: LABSPEC 09:08 | PROVIDERS: PCP Family Medicine; Visit Provider Nurse Practitioner | DX: R30.0 Dysuria (principal) | CPT/HCPCS: 87086; 87088; 87186 ==

== ENCOUNTER → 2025-08-09 | Outpatient (CLI) | payer MEDICARE, OTHER, SELFPAY | END | disposition home or self-care (01) | PROVIDERS: PCP Family Medicine; Referring Provider Physician Assistant; Visit Provider Physician Assistant | DX: R82.90 Unspecified abnormal findings in urine (principal) | CPT/HCPCS: 87077; 87086; 87088; 87186 ==

== ENCOUNTER → 2025-09-16 | Outpatient (CLI) | payer MEDICARE, OTHER, SELFPAY ==
[2025-09-16 17:53] LABS: Color, Urine Yellow (Yellow); Glucose, Dipstick Normal (Normal); Ketone-Dipstick Negative (Negative); Leukocyte Esterase-Dipstick Negative /ul (Negative); Nitrite-Dipstick Negative (Negative); Occult Blood-Urine 10 /ul (Negative); Protein-Dipstick Negative (Negative); Specific Gravity, Urine 1.020 (1.002-1.030); Urine Bilirubin Dipstick Negative (Negative)
[2025-09-16 17:58] LABS: Hematocrit 38.3 % (37-47); Hemoglobin 12.8 g/dL (12.0-15.0); Immature Granulocytes Count 0.020 X10^3/uL (0.0-0.0); Mean Corp Hgb Conc 33.4 g/dL (32-36); Mean Corpuscular Volume 92.1 fL (81-99); Mean Platelet Vol. 11.2 fl (6.2-12.0); NRBC Flagged by Analyzer 0 % (0-5); Platelet Count 171 K/mm3 (150-450); RBC Distribution Width CV 12.1 % (11.6-14.6); RBC Distribution Width SD 40.9 fl (35.1-43.9); Red Blood Count 4.16 M/mm3 (4.2-5.4); White Blood Count 6.9 K/mm3 (4.4-11.0)
[2025-09-16 18:15] LABS: Mucous, Urine RARE /hpf (<or=2+); Red Blood Cells-Urine 0-5 SEEN /hpf (0-5); Squamous Epithelial Cells - UA 0-5 SEEN /hpf (5-10)
[2025-09-16 18:33] LABS: AST(SGOT) 19 U/L (<=31); Alanine Aminotransfer ALT/SGPT 6 U/L (<=34); Albumin, Serum 4.2 g/dL (3.4-4.8); Alkaline Phosphatase 73 U/L (35-104); Anion Gap 11 (5-15); BUN 14 mg/dL (4-19); BUN/Creat Ratio 24.8 RATIO (10-20); Calcium,Total 9.4 mg/dL (7.6-11.0); Carbon Dioxide 24.8 mmol/L (21.0-32.0); Chloride 105 mmol/L (98-108); Globulin 2.5 g/dL (2.2-4.2); Glucose 92 mg/dL (70-99); Potassium 3.9 mmol/L (3.3-5.1); Vitamin D,25 Hydroxy 14.7 ng/mL (30-100)
== END | disposition home or self-care (01) ==
LOC: MFPLAB 15:08
PROVIDERS: PCP Family Medicine; Visit Provider Family Medicine
DX: E55.9 Vitamin D deficiency, unspecified (principal); J44.9 Chronic obstructive pulmonary disease, unspecified; E05.90 Thyrotoxicosis, unspecified without thyrotoxic crisis or storm
CPT/HCPCS: 36415; 80053; 81001; 82306; 84439; 84443; 85025

== ENCOUNTER → 2025-11-03 | Outpatient (CLI) | payer MEDICARE, OTHER, SELFPAY | END | disposition home or self-care (01) | LOC: LABSPEC 10:37 | PROVIDERS: PCP Family Medicine; Visit Provider Physician Assistant | DX: R82.90 Unspecified abnormal findings in urine (principal) | CPT/HCPCS: 87077; 87086; 87088; 87186 ==